=== PATIENT | female | born 1945 | race Caucasian/White ===

== ENCOUNTER 2016-10-31 15:12 | Inpatient (IN) | payer MEDICARE ==
[~2016-10-31] VITALS: Ht 152.4 cm; Wt 77.2 kg
[~2016-10-31 15:12] MED LIST: ALBU2.5V4 IH; ALBU8.5H2 INHALATION; CARV6.252 PO; CITA20TA11 PO; CYAN50008 PO; EPIN0.3P2 IM; FLUT16SP NS; L.AC1CAP6 PO; LIP40 PO; PANT40TA3 PO; SYMINH INHALATION; TIOT18CA3 IH; UBID100C25 PO
[2016-10-31 15:16] VITALS: BP 199/111; PULSE 105; RESP 16; O2SAT 98
[2016-10-31] MEDS ORDERED: Ondansetron 2 mg/mL 2 mL Inj ONE (15:39)
--- NOTE | 2016-10-31 15:45 | ED.REPORT ---
HPI-Abd Pain F 40 and Over Date of Service October 31, 2016 ED Provider: Rubio Brown MD The patient is a 71 year old female with history of hypertension, hyperlipidemia , COPD, asthma, mitral valve regurgitation, aortic stenosis, GERD, diverticulitis, and recurrent nausea and vomiting of unclear etiology, who presents to the emergency department complaining of nausea and vomiting that began suddenly at 1100 today. She has also experienced abdominal pain, diarrhea , and cold sweats. The nausea is more significant than the abdominal pain. She has had similar symptoms in the past. She has been hospitalized a few times with extensive workups that have not shown any conclusive findings. Most mornings she wakes up and experiences abdominal pain, diarrhea, and cold sweats. The patient believes her symptoms may be related to a wheat intolerance. She has not had any wheat for the last 4 days but has continued to have episodes. Nursing Notes Stated Complaint: DIARRHEA Chief Complaint: Female Abdominal Pain Nursing Notes Reviewed: Yes Allergies: Coded Allergies: Penicillins (Verified Allergy, Severe, Anaphylaxis- OK WITH CEPHALOSPORINS , 10/31/16) codeine (Verified Adverse Reaction, Severe, Nausea,Vomiting, 10/31/16) promethazine (Verified Adverse Reaction, Unknown, Hallucinations, 10/31/16) Scheduled Atorvastatin (Lipitor) 40 Mg Tablet 40 MG PO DAILY Budesonide/Formoterol 160-4.5 mcg Inh (Symbicort 160-4.5 mcg Inh) 120 Puff Inhaler 2 PUFF INHALATION BID Carvedilol (Carvedilol) 6.25 Mg Tablet 0.5 TAB PO BID Citalopram (Citalopram) 20 Mg Tablet 20 MG PO DAILY Cyanocobalamin (Vitamin B-12) (Vitamin B12) 5,000 Mcg Tab.rapdis 5,000 MCG PO DAILY Fluticasone Propionate (Fluticasone Propionate Nasal) 16 Gm [place].susp 2 SPRAY NS DAILY L.acidoph & Paracasei,B.lactis (Probiotic) 10 Billion Cell Capsule 1 EACH PO DAILY Pantoprazole DR (Pantoprazole DR) 40 Mg Tablet.dr 40 MG PO DAILY Tiotropium [place] (Spiriva) 18 Mcg Cap.w.dev 18 MCG IH DAILY Ubidecarenone (Co Q-10) 100 Mg Capsule 100 MG PO DAILY Scheduled PRN Albuterol HFA (Proair HFA) 8.5 Gm Hfa.aer.ad 2 PUFFS INHALATION Q4-6H PRN PRN For Shortness of Breath Albuterol Neb Soln (Albuterol Neb Soln) 2.5 Mg/3 Ml Vial.neb 2.5 MG IH Q4 PRN PRN For Shortness of Breath Epinephrine (Epipen 2-Mu) 0.3 Mg/0.3 Ml Auto.injct 0.3 MG IM PRN For Anaphyllaxis General Time Seen by MD: 15:43 Chief Complaint Nausea, Vomiting moderate Hx Obtained From: Patient, Spouse Arrived By: Walk-in Sudden in Onset?: Yes Onset Occurred: 5 - 8 hours ago Symptom Duration: Since onset Progression since Onset: Constant, Gradually worsening Location: : Diffuse Quality: Painful Severity: Current: Moderate Severity: Maximum: Pain scale Associated with: Reports: Diarrhea Additional Notes: +abdominal pain, diaphoresis Pertinent Negative: Pt denies other symptoms Recent Healthcare: No recent doctor visit, No recent hospitalization Similar Sx Previous: Yes Past Medical History Past Medical History Nausea and vomiting unclear etiology Hypertension Hyperlipidemia Depression COPD Divertiuclitis GERD Asthma Mitral valve regurgitation Moderate-severe aortic stenosis Past Surgical History Bladder surgery Eye surgery R rotator cuff surgery October 2016 Denies ABD surgeries Family History Noncontributory Smoking History Former Smoker Social History Alcohol Use: 1-3 per week Drug Use: Denies drug use Other Social History: Good social support, , Local resident Ambulatory Status Independent Review of Systems Constitutional: Reports: Chills GI: Reports: Abdominal pain, Diarrhea, Nausea, Vomiting, Denies: Constipation Complete sys rev & neg: except as marked. Skin: Reports Diaphoresis Physical Exam Vital Signs Vital Signs (First) Date Time Temp Pulse Resp B/P Pulse Ox O2 Delivery O2 Flow Rate FiO2 10/31/16 15:16 37.1 105 16 199/111 98 Room Air Initial VS: Reviewed Head / Eyes: Atraumatic, Normocephalic, PERRL ENT: Mucous membranes moist, Conjunctiva normal, No scleral icterus Neck: Supple, Non-tender, Full range of motion Lymphatic: No lymphadenopathy Extremities: Vascular intact, Neuro intact, No swelling Skin: Warm, Dry, No cyanosis Neurologic: Alert, Oriented, Nonfocal Psychiatric: Mood/affect normal, Behavior normal, Normal thought content General/Constitutional: Awake, Alert, Cooperative Distress / Hydration: Positive: Distress moderate Appearance / Presentation: Positive: Uncomfortable Respiratory / Chest: Atraumatic, Breath sounds NL, Breath sounds = bilat, No respiratory distress, No rales, No rhonchi, No wheezing, No stridor Cardiovascular: Regular rhythm, Heart sounds NL, No murmurs, No rubs, Peripheral circulation NL, Pulses = bilaterally Heart Rate / Rhythm: Positive: Tachycardia Abdomen: Atraumatic, Soft, Non-tender, No guarding, No rebound, BS normoactive , No distention, No hernia, No palpable mass, No pulsatile mass Back: Atraumatic, Inspection NL, Full range of motion Upper Extremity / MS: Neurologic intact, Vascular intact Right arm in sling s/p recent rotator cuff surgery. Interpretation & Diagnostics Interpretation & Diagnostics: December 2015: Serology for schistosomiasis and Strongyloides were negative Lab Results Interpretation Result Diagram: 10/31/16 1535 10/31/16 1535 Test 10/31/16 15:35 White Blood Count 12.9th/mm3 (3.8-10.1) Red Blood Count 4.33mil/mm3 (3.90-5.20) Hemoglobin 13.3g/dL (12.0-15.6) Hematocrit 38.8% (35.0-46.0) Mean Corpuscular Volume 89.6fL (81-100) Mean Corpuscular Hemoglobin 30.7pg (27.0-35.0) Mean Corpuscular Hemoglobin Concent 34.3% (32.0-37.0) Red Cell Distribution Width 12.6% (12.3-15.4) Platelet Count 327bil/L (150-400) Neutrophils (%) (Auto) 71.9% (40-74) Lymphocytes (%) (Auto) 19.3% (14-46) Monocytes (%) (Auto) 6.3% (4-12) Eosinophils (%) (Auto) 2.1% (0-5) Basophils (%) (Auto) 0.2% (0-3) Hold Purple Top Tube Received (Received) Hold Blue Top Tube Received (Received) Sodium Level 135mEq/L (134-144) Potassium Level 3.1mEq/L (3.5-5.2) Chloride Level 95mEq/L (97-108) Carbon Dioxide Level 21mmol/L (18-29) Blood Urea Nitrogen 17mg/dL (8-27) Creatinine 0.81mg/dL (0.57-1.00) Estimat Glomerular Filtration Rate 100mL/min (>59) Glucose Level 138mg/dL (60-99) Lactic Acid Level 2.4mmol/L (0.4-2.0) Calcium Level 10.2mg/dL (8.5-10.1) Magnesium Level 1.6mg/dL (1.6-2.6) Total Bilirubin 0.4mg/dL (0.0-1.2) Aspartate Amino Transf (AST/SGOT) 20U/L (0-50) Alanine Aminotransferase (ALT/SGPT) 15U/L (0-32) Alkaline Phosphatase 104U/L (25-165) Total Protein 7.3g/dL (6.4-8.4) Albumin 4.0g/dL (3.4-5.0) Lipase 33U/L (13-60) Hold [place]prise Top Tube Received (Received) Hold Ching Top Tube Received (Received) Re-Eval/Medical Decision Source of Hx: Old records, Family Re-Evaluation/Progress : Time of Eval: 16:15 Re-Evaluation/Progress Note: Discussed plan for admission. All questions were addressed. Consultation : Referral / Consult Name: Hill Henry DO Consulted With: Hospitalist Call Returned at: 17:18 Field Operations Manager: Will see patient, Agrees with eval, Agrees with plan, Accepts admit Counseled Regarding: Diagnosis, Lab results, Need for admission Discharge & Departure Primary Impression: Intractable vomiting Vomiting type: unspecified Nausea presence: with nausea Qualified Code: R11.2 - Nausea with vomiting, unspecified Additional Impression: Nausea Disposition: ADMITTED TO HOSPITAL Discharge Condition All VS Reviewed: Yes Condition: Stable Referrals: Cristy Mcclellan (PCP) Scribe Attestation Portions of this note were transcribed by Veronica Muniz. I, Dr. Brown personally performed the history, physical exam and medical decision-making; I reviewed and confirmed the accuracy of the information in the transcribed note. Signed by: Mitzi Ortega, 10/31/2016 at 9591. copies to: Cristy Mcclellan Kirk H MD October 31, 2016 15:45 Veronica Muniz October 31, 2016 15:52
[2016-10-31] MEDS ORDERED: MetoCLOpramide 5 mg/mL 2 mL Inj IVPUSH ONE (16:10)
[2016-10-31] MEDS ORDERED: Ondansetron 2 mg/mL 2 mL Inj IVPUSH PRN (16:10)
[2016-10-31] MEDS ORDERED: 0.9% Sodium Chloride 1,000 ML IV ONE ×2 (16:10→17:05)
[2016-10-31] MEDS ORDERED: Pantoprazole 4 mg/mL 10 mL Inj IVPUSH ONE (16:10)
[2016-10-31 16:27] LABS: BASOPHILS % (AUTO) 0.2 % (0-3); EOSINOPHILS % (AUTO) 2.1 % (0-5); MONOCYTES % (AUTO) 6.3 % (4-12); Mean Corpuscular Hemoglobin 30.7 pg (27.0-35.0); Mean Corpuscular Volume 89.6 fL (81-100); NEUTROPHILS % (AUTO) 71.9 % (40-74); Platelet Count 327 bil/L (150-400)
[2016-10-31 16:33] LABS: Magnesium 1.6 mg/dL (1.6-2.6)
[2016-10-31 16:47] VITALS: BP 199/95; PULSE 100; RESP 19; O2SAT 99
[2016-10-31 17:04] VITALS: BP 199/95; PULSE 100; RESP 18; O2SAT 100
[2016-10-31] MEDS: Lactated Ringer's 1,000 ML IV SCH (17:08)
[2016-10-31] MEDS ORDERED: Albuterol 2.5 mg/3 mL Inhalation Solution NEB PRN (17:15)
[2016-10-31] MEDS ORDERED: levoFLOXacin Inj 750 MG in IV Premix 1 EACH IV ONE (17:30)
[2016-10-31 17:56] VITALS: BP 174/103; PULSE 102; RESP 20; O2SAT 98
[2016-10-31] MEDS ORDERED: metroNIDAZOLE Inj 500 MG in IV Premix 1 EACH IV SCH (18:00)
[2016-10-31 18:08] LABS: APPEARANCE,URINE CLEAR (CLEAR,HAZY); COLOR,URINE YELLOW (YELLOW); OCCULT BLOOD,URINE NEGATIVE (NEGATIVE); PH,URINE 7.5 (5.0-8.0); UROBILINOGEN,URINE NORMAL (NORMAL)
[2016-10-31 18:10] VITALS: PULSE 108
[2016-10-31] MEDS ORDERED: Potassium Chloride Inj 30 MEQ in Dextrose 5% 500 ML IV ONE (18:40)
[2016-10-31] MEDS ORDERED: Magnesium Sulf 2 Gm/50mL Water 2 GM in IV Premix 1 EACH IV ONE ×2 (18:40→21:25)
--- NOTE | 2016-10-31 19:06 | PCM.HPMED ---
Subjective Date of Service October 31, 2016 Primary Provider: Admitting Physician: Murali Grubbs MD Primary Care Physician: Cristy Mcclellan Attending Physician: Murali Grubbs MD Chief Complaint: intractable nausea, vomiting, diarrhea History of Present Illness: 71 year old female with history of hypertension, hyperlipidemia, COPD, asthma, mitral valve regurgitation, aortic stenosis, GERD, diverticulitis, and recurrent nausea and vomiting of unclear etiology, pt presented to ED with acute on chronic intractable nausea/vomiting, abdominal pain, new onset diarrhea. Of note, pt was not able to give detailed history as pt was severely retching in ED. As per , ED provider, pt has intermittent nausea for past few weeks, thought to be from Wheat intolerance, so tried to cut back all of Wheat products but not successful, otherwise pt has been eating as normal, relatively good appetite, until today around noon, pt started having severe nausea, multiple vomiting, watery diarrhea, chills, sweating, diffuse pain on lower belly. Before this episode, pt had regular BM. Of note, pt had very simliar episode of n,v,diarrhea, it seems it's been on and off for four years. Last hospitalization in , pt was admitted with similar complaints, CT showed mild colitis, eventually had colonoscopy which showed mild erosion in colon, twisty sigmoid colon, which prone to cause ileus per . Biopsy of erosion was later found to be no dysplasia, not infectious in pathology. patient's symptoms were greatly improved with supportive tx with IVF, anti-emetics, stools PCR showed EPEC, but no abx was given. There was mild concern from ID regarding long standing parasites infection or ischemic colitis but excluded with negative serology and endoscopy. As per, , patient hasn't followed up GI, since that time. EGD/colonoscopy prior to 2015 was on 02/23/15 with the following findings: Gastropathy. Sliding hiatal hernia. Nonobstructing Schatzki's. Diverticulosis. Otherwise visually unremarkable colonoscopy to cecum. ED VS 199/111, 105, 16, 98% on RA, afebrile, labs showed mild leukocytosis, mild lactate, low K, Mg. PCT0.05. pt received pepcid, reglan, benadryl, zofran, however still symptomatic. ROS: detailed ROS were not available as pt was retching, no dysuria, no chest pain, SOB, feeling cold didn't take temp at home Review of Systems: All of pertinent history was obtained in details as above in HPI Allergies Coded Allergies: Penicillins (Verified Allergy, Severe, Anaphylaxis- OK WITH CEPHALOSPORINS , 10/31/16) codeine (Verified Adverse Reaction, Severe, Nausea,Vomiting, 10/31/16) promethazine (Verified Adverse Reaction, Unknown, Hallucinations, 10/31/16) Home Medications Scheduled Atorvastatin (Lipitor) 40 Mg Tablet 40 MG PO DAILY Budesonide/Formoterol 160-4.5 mcg Inh (Symbicort 160-4.5 mcg Inh) 120 Puff Inhaler 2 PUFF INHALATION BID Carvedilol (Carvedilol) 6.25 Mg Tablet 0.5 TAB PO BID Citalopram (Citalopram) 20 Mg Tablet 20 MG PO DAILY Cyanocobalamin (Vitamin B-12) (Vitamin B12) 5,000 Mcg Tab.rapdis 5,000 MCG PO DAILY Fluticasone Propionate (Fluticasone Propionate Nasal) 16 Gm [place].susp 2 SPRAY NS DAILY L.acidoph & Paracasei,B.lactis (Probiotic) 10 Billion Cell Capsule 1 EACH PO DAILY Pantoprazole DR (Pantoprazole DR) 40 Mg Tablet.dr 40 MG PO DAILY Tiotropium [place] (Spiriva) 18 Mcg Cap.w.dev 18 MCG IH DAILY Ubidecarenone (Co Q-10) 100 Mg Capsule 100 MG PO DAILY Scheduled PRN Albuterol HFA (Proair HFA) 8.5 Gm Hfa.aer.ad 2 PUFFS INHALATION Q4-6H PRN PRN For Shortness of Breath Albuterol Neb Soln (Albuterol Neb Soln) 2.5 Mg/3 Ml Vial.neb 2.5 MG IH Q4 PRN PRN For Shortness of Breath Epinephrine (Epipen 2-Mu) 0.3 Mg/0.3 Ml Auto.injct 0.3 MG IM PRN For Anaphyllaxis PMH Past Medical History 11/17/2014 EF of 70%, LVH, moderately severe mitral regurg and moderately severe aortic stenosis A aortic valve area 1 cm Hypertension Hyperlipidemia Depression COPD diverticulosis Asthma Surgical History bladder surgery eye surgery denies ABD surgeries Family History no hx of IBD Social History Hx Alcohol Use: Yes (occassionally ) Hx Substance Use: No Hx Tobacco Use: No (quit 40 years ago) Smoking Status: Former Smoker Exam Vital Signs Vital Sign - Last Date Time Temp Pulse Resp B/P Pulse Ox O2 Delivery O2 Flow Rate FiO2 10/31/16 17:04 36.7 100 18 199/95 100 Room Air Exam markedly distressed due to nausea, abdominal pain, MMM, no JVD, tachy, regular, nl S1 S2 no mrg CTAB no w,c S,ND,diffuse tenderness on LQ, hypoactive BS+ warm, no edema Lab and Diagnostics Result Diagram: 10/31/16 15310/31/16 1535 Assessment & Plan 71 year old female with history of hypertension, hyperlipidemia, COPD, asthma, mitral valve regurgitation, aortic stenosis, GERD, diverticulitis, and recurrent nausea and vomiting of unclear etiology, acute, active Intractable nausea/vomiting/diarrhea, hx of gastritis and colitis in the past, multiple EGD/colonoscopy failed to reveal any etiologies, It seems this is similar recurrent episode of previous manifestation, labs unremarkable for infectious etiology. abd exam was benign. -NPO -stool PCR -continue conservative tx for n/v, pantoprazole 40mg iv bid, reglan 5mg q8h prn , benadryl prn, -LR 100/cchr, replete K>4, Mg>2 -will give one dose of Levaquin, flagyl, very low threshold to discontinue -if symptoms persistent, consider GI consult -KUB to rule out SBO, severe ileus, if abnormal then will get abd CT -if bloody stools noted, will aggressively treat for possible ischemic colitis chronic, stable HTN, uncontrolled likely due to stress reaction, continue coreg home dose, COPD, not active on exam, -continue spiriva, symbicort and albuterol prn hyperlipidemia -continue zocor while monitoring LFT depression -continue celexa at lower dose diet: NPO for now dispo: patient is expected to stay more than 2midnights given condition Full code dvt ppx: LMWH Time spent 65min Murali Grubbs MD October 31, 2016 17:23
[2016-10-31] MEDS: Ondansetron 2 mg/mL 2 mL Inj IVPUSH PRN ×2 (19:13→23:04)
--- NOTE | 2016-10-31 19:28 | NUR ---
Arrival to 1022 Pt arrival to 1022 nauseous and weak, wearing sling on R should for rotator cuff surgery 2 weeks prior. BP's elevated at 192/126 with a follow up BP of 174/103. Dr. Grubbs notified wanting pt medicated for nausea before additional interventions were ordered. 8mg Zofran given at this time and care transferred to NOC RN. Pt placed on tele and confirmed that blood cultures have been drawn. Levofloxacin hung. Pt on contact/enteric precautions and awaiting a stool sample. Careful monitoring will continue.
[2016-10-31] MEDS: MetoCLOpramide 5 mg/mL 2 mL Inj IVPUSH PRN (20:23)
[2016-10-31] MEDS: Fluticasone-Salmeterol 500-50 Inhaler INHALATION SCH (20:30)
[2016-11-01] VITALS (14 sets, daily range): BP systolic 165–212; BP diastolic 100–134; PULSE 94–131; RESP 15–20; O2SAT 93–97
--- NOTE | 2016-11-01 00:14 | NUR ---
Hypertension 0000: b/p 212/134, pulse 120- up to 140's while vomiting. page to to update. Addendum: 11/01/16 at 0038 by BRENTON DALLAS RN V.O. received: Nitro paste 1 inch. paste applied at 0030. agricultural economics teacher attempting 2nd PIV to LUE. current IV frequently occluding. patient remains afebrile. Tele running SR/ST in 115's. Addendum: 11/01/16 at 0436 by BRENTON DALLAS RN 0430: call from w/ order to give Labetalol 20mg IVP x 1. 1 hour after given b/p remains 170/100, pulse 119. Info page sent to to update. continues with nausea w/ dry heaves. prn zofran and reglan given thru out the night. CTM for changes.
[2016-11-01] MEDS ORDERED: Nitroglycerin 2% 1 Gm Ointment TOPICAL ONE ×2 (00:20→22:00)
[2016-11-01] MEDS: Famotidine Inj 20 MG in IV Premix 1 EACH IV SCH ×3 (01:40→20:02)
[2016-11-01] MEDS: metroNIDAZOLE Inj 500 MG in IV Premix 1 EACH IV SCH ×3 (01:42→21:39)
[2016-11-01] MEDS ORDERED: Labetalol 5 mg/mL 4 mL Inj IVPUSH ONE ×2 (02:45→06:00)
[2016-11-01] MEDS: MetoCLOpramide 5 mg/mL 2 mL Inj IVPUSH PRN ×2 (04:39→12:18)
[2016-11-01] MEDS: Ondansetron 2 mg/mL 2 mL Inj IVPUSH PRN ×3 (05:50→16:10)
--- NOTE | 2016-11-01 05:55 | NUR ---
0600: b/p 194/125 pulse 112. 97% RA. temp 98.1. patient reports no symptoms of hypertension. "just nauseated." has been receiving prn zofran and reglan thru the night. page to . new order for Labetolol 20mg IVP x 1.
[2016-11-01 06:08] LABS: BASOPHILS % (AUTO) 0.1 % (0-3); EOSINOPHILS % (AUTO) 0 % (0-5); MONOCYTES % (AUTO) 6.1 % (4-12); Mean Corpuscular Hemoglobin 30.8 pg (27.0-35.0); Mean Corpuscular Volume 88.6 fL (81-100); NEUTROPHILS % (AUTO) 87.4 % (40-74); Platelet Count 317 bil/L (150-400)
[2016-11-01 06:22] LABS: Magnesium 2.4 mg/dL (1.6-2.6); Phosphorus 2.7 mg/dL (2.5-4.9)
[2016-11-01] MEDS: Lactated Ringer's 1,000 ML IV SCH ×2 (08:14→20:02)
[2016-11-01] MEDS: Pantoprazole 4 mg/mL 10 mL Inj IVPUSH SCH ×2 (08:14→16:10)
[2016-11-01] MEDS: Tiotropium 18mcg/Cap 5 Capsule Inhaler Kit INHALATION SCH (08:26)
[2016-11-01] MEDS: Fluticasone 0.05% 15 Spray/2 Gm 16 Gm Nasal Spray NASAL SCH (08:26)
[2016-11-01] MEDS: Fluticasone-Salmeterol 500-50 Inhaler INHALATION SCH ×2 (08:26→20:10)
[2016-11-01] MEDS ORDERED: levoFLOXacin Inj 750 MG in IV Premix 1 EACH IV SCH (08:30)
--- NOTE | 2016-11-01 11:00 | DRSVH ---
PROCEDURE: CT ABDOMEN AND PELVIS WITHOUT CONTRAST ([id number]) INDICATIONS: intractable n/v TECHNIQUE: After the administration of oral contrast, 5 mm thick sections acquired from the diaphragms to the sy mphysis. 5 mm coronal and sagittal reformats were performed. For radiation dose reduction, the foll owing was used: automated exposure control, adjustment of mA and/or kV according to patient size. COMPARISON: [facility], CT, ABD/PELVIS W/CON (PN), 12/08/2014, 15:53. FINDINGS: Image quality: Diagnostic. ABDOMEN: Lung bases: Lung bases are clear. Heart size is normal. Solid organs: The liver, spleen, pancreas, and adrenals are within normal limits for noncontrast exam . The kidneys are normal in size. No renal calculi are evident. There is prominent perinephric flu id on the left and mild perinephric fluid on the right. No hydronephrosis is present. Peritoneum and bowel: There is a small hiatal hernia. Mild prominence of the wall of the distal stoma ch is evident, which is less prominent on the current exam compared to the prior study. Otherwise, t he duodenum and remainder of the small bowel loops are nondilated. Distal colonic diverticulosis is identified with mild inflammation evident adjacent to the rectosigmoid colon with probable bowel wall thickening. No complete bowel obstruction is identified. The appendix is well-visualized and bela l in size without periappendiceal inflammation. Mild prominence of the wall of the ascending colon a nd transverse colon is noted. Nodes and vessels: No retroperitoneal or mesenteric adenopathy by size criteria. Aorta and inferior vena cava are normal in size. There is atherosclerosis of the abdominal aorta with associated ectas ia. Miscellaneous: No ventral hernias. PELVIS: Genitourinary: Bladder wall thickness is normal. The uterus is surgically absent. The ovaries are not definitely seen. Miscellaneous: No inguinal hernias or adenopathy. No free fluid or loculated fluid collection is ev ident within the pelvis. Bones: No suspicious bony lesions. T9 and T10 compression deformities are unchanged. Sclerotic deanna nges involving the bilateral femoral heads are similar to the previous exam without articular surface offset. No acute fractures are identified. IMPRESSION: 1. Distal colonic diverticulosis with mild surrounding inflammation is suspicious for early divertic ulitis and clinical correlation is recommended. 2. Thickening of the wall of the ascending and transverse colon similar to the previous exam and may be related to incomplete distention. However, an infectious or inflammatory colitis cannot be exclu ded and clinical correlation is recommended. 3. No bowel obstruction, loculated fluid collection, or free fluid. 4. Moderate perinephric edema about the kidneys (left greater than right) may be senescent. However , clinical correlation to exclude pyelonephritis is recommended. 5. 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 6. T10 and T11 compression deformities are unchanged. 7. Small hiatal hernia. Dictated by: Fabio Magdaleno M.D. on 11/01/2016 at 9:51 Approved by: Fabio Magdaleno M.D. on 11/01/2016 at 9:58
[2016-11-01] MEDS ORDERED: Labetalol 5 mg/mL 4 mL Inj IVPUSH PRN (11:10)
--- NOTE | 2016-11-01 11:23 | PCM.PNMED ---
Subjective Date of Service November 01, 2016 Subjective pt was hypertensive and tachycardic, required labetalol iv pt remained tachyto 100-110s, [id number] this AM, c/o mild nausea, not hungry, had multiple vomiting overnight, but significantly improved in AM from yesterday afebrile, labs showed elevated wbc, poly now87%, abd ct showed multiple areas of colitis Exam Vital Signs Vital Sign - Last Date Time Temp Pulse Resp B/P Pulse Ox O2 Delivery O2 Flow Rate FiO2 11/01/16 09:12 36.8 103 18 177/115 96 Room Air Intake and Output 10/31/16 10/31/16 11/01/16 Cumulative From/Thru 15:00 23:00 07:00 10/31/16 15:16 - 11/01/16 06:17 Intake Total 1000 ml 809 ml 1809 ml Output Total 975 ml 975 ml Balance 1000 ml -166 ml 834 ml Intake Oral 0 ml 0 ml 0 ml IV Total 1000 ml 809 ml 1809 ml Output Urine Total 900 ml 900 ml Emesis 75 ml 75 ml # Voids 0 0 # Bowel Movements 0 1 1 Exam markedly distressed due to nausea, abdominal pain, MMM, no JVD, tachy, regular, nl S1 S2 no mrg CTAB no w,c S,ND,diffuse tenderness on LQ, hypoactive BS+ warm, no edema IVs and Medications Medications Reviewed: Medications were reviewed in detail Lab and Diagnostics Result Diagram: 11/01/16 0540 11/01/16 0540 X-Rays, CTs and MRIs PROCEDURE: CT ABDOMEN AND PELVIS WITHOUT CONTRAST ([id number]) INDICATIONS: intractable n/v TECHNIQUE: After the administration of oral contrast, 5 mm thick sections acquired from the diaphragms to the symphysis. 5 mm coronal and sagittal reformats were performed. For radiation dose reduction, the following was used: automated exposure control, adjustment of mA and/or kV according to patient size. COMPARISON: [facility], CT, ABD/PELVIS W/CON (PN), 12/08/2014, 15: 53. FINDINGS: Image quality: Diagnostic. ABDOMEN: Lung bases: Lung bases are clear. Heart size is normal. Solid organs: The liver, spleen, pancreas, and adrenals are within normal limits for noncontrast exam. The kidneys are normal in size. No renal calculi are evident. There is prominent perinephric fluid on the left and mild perinephric fluid on the right. No hydronephrosis is present. Peritoneum and bowel: There is a small hiatal hernia. Mild prominence of the wall of the distal stomach is evident, which is less prominent on the current exam compared to the prior study. Otherwise, the duodenum and remainder of the small bowel loops are nondilated. Distal colonic diverticulosis is identified with mild inflammation evident adjacent to the rectosigmoid colon with probable bowel wall thickening. No complete bowel obstruction is identified. The appendix is well-visualized and normal in size without periappendiceal inflammation. Mild prominence of the wall of the ascending colon and transverse colon is noted. Nodes and vessels: No retroperitoneal or mesenteric adenopathy by size criteria. Aorta and inferior vena cava are normal in size. There is atherosclerosis of the abdominal aorta with associated ectasia. Miscellaneous: No ventral hernias. PELVIS: Genitourinary: Bladder wall thickness is normal. The uterus is surgically absent. The ovaries are not definitely seen. Miscellaneous: No inguinal hernias or adenopathy. No free fluid or loculated fluid collection is evident within the pelvis. Bones: No suspicious bony lesions. T9 and T10 compression deformities are unchanged. Sclerotic changes involving the bilateral femoral heads are similar to the previous exam without articular surface offset. No acute fractures are identified. IMPRESSION: 1. Distal colonic diverticulosis with mild surrounding inflammation is suspicious for early diverticulitis and clinical correlation is recommended. 2. Thickening of the wall of the ascending and transverse colon similar to the previous exam and may be related to incomplete distention. However, an infectious or inflammatory colitis cannot be excluded and clinical correlation is recommended. 3. No bowel obstruction, loculated fluid collection, or free fluid. 4. Moderate perinephric edema about the kidneys (left greater than right) may be senescent. However, clinical correlation to exclude pyelonephritis is recommended. 5. 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 6. T10 and T11 compression deformities are unchanged. 7. Small hiatal hernia. Dictated by: Fabio Magdaleno M.D. on 11/01/2016 at 9:51 Approved by: Fabio Magdaleno M.D. on 11/01/2016 at 9:58 Assessment & Plan 71 year old female with history of hypertension, hyperlipidemia, COPD, asthma, mitral valve regurgitation, aortic stenosis, GERD, diverticulitis, and recurrent nausea and vomiting of unclear etiology, acute, active Intractable nausea/vomiting/diarrhea, POA, likely due to diverticulitis/colitis , infectious vs inflammatory, hx of gastritis and colitis in the past, multiple EGD/colonoscopy failed to reveal any etiologies,CT abd/pelvis 10/31 showed probable early distal colonic diverticulosis with mild surrounding inflammation , Thickening of the wall of the ascending and transverse colon. -advance diet as tolerated -should get stool PCR -continue conservative tx for n/v, pantoprazole 40mg iv bid, reglan 5mg q8h prn , benadryl prn, -LR 100/cchr, replete K>4, Mg>2 -s/p Levaquin, flagyl, will continue given CT findings, -if symptoms unchanged, any blood diarrhea, will consider GI consult for possible repeat C-scope ZUHAIR, POA, likely prerenal from GI fluid loss, trends cr, conitnue IVF, avoid renal toxins, will consider renal US if it worsens chronic, stable HTN, uncontrolled likely due to stress reaction and long standing based on previous TTE, LVH, severe concentric hypertrophy -increase coreg to 12.5mg bid, added labetalol 10mg q8h prn for SBP>180 -will consider add second agent, CCB or HCTZ COPD, not active on exam, -continue spiriva, symbicort and albuterol prn hyperlipidemia -continue zocor while monitoring LFT depression -continue celexa at lower dose diet: advance as tolerate dispo: likely 2-3more days Full code dvt ppx: LMWH Time spent 35min Murali Grubbs MD November 01, 2016 11:23
--- NOTE | 2016-11-01 16:16 | NUR ---
Nausea Pt c/o nausea most of the day. Zofran given Q4 hours, Reglan given Q6 aprox 2 hours after Zofran given. This seemed to work. Pt said Reglan makes her feel antsy.
[2016-11-02] VITALS (12 sets, daily range): BP systolic 145–178; BP diastolic 88–117; PULSE 85–114; RESP 16–20; O2SAT 94–100
--- NOTE | 2016-11-02 03:32 | NUR ---
Hypertension/ MD montes de oca TOBACCO WEIGHER reported pt.'s BP was 185/117. BP re-checked with similar results 180/124, after HS blood pressure meds given. MD Rodriguez paged. Michael MCFARLAND ordered a one time order of nitro paste. Nitro paste applied. Pt's BP went down to 175/111. Will continue to monitor BPs.
[2016-11-02 06:09] LABS: BASOPHILS % (AUTO) 0.1 % (0-3); EOSINOPHILS % (AUTO) 0.1 % (0-5); MONOCYTES % (AUTO) 10.2 % (4-12); Mean Corpuscular Hemoglobin 31.5 pg (27.0-35.0); NEUTROPHILS % (AUTO) 77.7 % (40-74); Platelet Count 202 bil/L (150-400)
[2016-11-02 06:21] LABS: Magnesium 1.7 mg/dL (1.6-2.6); Phosphorus 2.9 mg/dL (2.5-4.9)
[2016-11-02] MEDS: Fluticasone-Salmeterol 500-50 Inhaler INHALATION SCH ×2 (08:07→20:52)
[2016-11-02] MEDS: Pantoprazole 40 mg ER24 Tablet PO SCH (08:07)
[2016-11-02] MEDS: Tiotropium 18mcg/Cap 5 Capsule Inhaler Kit INHALATION SCH (08:08)
[2016-11-02] MEDS: Fluticasone 0.05% 15 Spray/2 Gm 16 Gm Nasal Spray NASAL SCH (08:09)
[2016-11-02] MEDS: Lactated Ringer's 1,000 ML IV SCH (09:08)
[2016-11-02] MEDS: metroNIDAZOLE Inj 500 MG in IV Premix 1 EACH IV SCH (10:00)
[2016-11-02] MEDS ORDERED: Labetalol 5 mg/mL 4 mL Inj IVPUSH PRN (11:10)
--- NOTE | 2016-11-02 11:22 | PCM.PNMED ---
Subjective Date of Service November 02, 2016 Subjective pt looked more comfortable, denied n/v, looked more alrt no BM since admission. denied KEVIN, dizziness, BP trend is better but still 160-170s with increased Coreg c/o mild diffuse abdominal pain Exam Vital Signs Vital Sign - Last Date Time Temp Pulse Resp B/P Pulse Ox O2 Delivery O2 Flow Rate FiO2 11/02/16 09:16 36.7 97 18 167/100 96 Room Air Intake and Output 11/01/16 11/01/16 11/02/16 Cumulative From/Thru 15:00 23:00 07:00 10/31/16 15:16 - 11/02/16 06:44 Intake Total 1510 ml 1814 ml 5133 ml Output Total 775 ml 400 ml 2150 ml Balance 735 ml 1414 ml 2983 ml Intake Oral 600 ml 590 ml 1190 ml IV Total 910 ml 1224 ml 3943 ml Output Urine Total 750 ml 400 ml 2050 ml Emesis 25 ml 100 ml # Voids 0 # Bowel Movements 1 Exam markedly distressed due to nausea, abdominal pain, MMM, no JVD, tachy, regular, nl S1 S2 no mrg CTAB no w,c S,ND,diffuse tenderness throughout, hypoactive BS+ warm, no edema IVs and Medications Medications Reviewed: Medications were reviewed in detail Lab and Diagnostics Result Diagram: 11/02/1652411/02/16524 X-Rays, CTs and MRIs PROCEDURE: CT ABDOMEN AND PELVIS WITHOUT CONTRAST ([id number]) INDICATIONS: intractable n/v TECHNIQUE: After the administration of oral contrast, 5 mm thick sections acquired from the diaphragms to the symphysis. 5 mm coronal and sagittal reformats were performed. For radiation dose reduction, the following was used: automated exposure control, adjustment of mA and/or kV according to patient size. COMPARISON: [facility], CT, ABD/PELVIS W/CON (PN), 12/08/2014, 15: 53. FINDINGS: Image quality: Diagnostic. ABDOMEN: Lung bases: Lung bases are clear. Heart size is normal. Solid organs: The liver, spleen, pancreas, and adrenals are within normal limits for noncontrast exam. The kidneys are normal in size. No renal calculi are evident. There is prominent perinephric fluid on the left and mild perinephric fluid on the right. No hydronephrosis is present. Peritoneum and bowel: There is a small hiatal hernia. Mild prominence of the wall of the distal stomach is evident, which is less prominent on the current exam compared to the prior study. Otherwise, the duodenum and remainder of the small bowel loops are nondilated. Distal colonic diverticulosis is identified with mild inflammation evident adjacent to the rectosigmoid colon with probable bowel wall thickening. No complete bowel obstruction is identified. The appendix is well-visualized and normal in size without periappendiceal inflammation. Mild prominence of the wall of the ascending colon and transverse colon is noted. Nodes and vessels: No retroperitoneal or mesenteric adenopathy by size criteria. Aorta and inferior vena cava are normal in size. There is atherosclerosis of the abdominal aorta with associated ectasia. Miscellaneous: No ventral hernias. PELVIS: Genitourinary: Bladder wall thickness is normal. The uterus is surgically absent. The ovaries are not definitely seen. Miscellaneous: No inguinal hernias or adenopathy. No free fluid or loculated fluid collection is evident within the pelvis. Bones: No suspicious bony lesions. T9 and T10 compression deformities are unchanged. Sclerotic changes involving the bilateral femoral heads are similar to the previous exam without articular surface offset. No acute fractures are identified. IMPRESSION: 1. Distal colonic diverticulosis with mild surrounding inflammation is suspicious for early diverticulitis and clinical correlation is recommended. 2. Thickening of the wall of the ascending and transverse colon similar to the previous exam and may be related to incomplete distention. However, an infectious or inflammatory colitis cannot be excluded and clinical correlation is recommended. 3. No bowel obstruction, loculated fluid collection, or free fluid. 4. Moderate perinephric edema about the kidneys (left greater than right) may be senescent. However, clinical correlation to exclude pyelonephritis is recommended. 5. 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 6. T10 and T11 compression deformities are unchanged. 7. Small hiatal hernia. Dictated by: Fabio Magdaleno M.D. on 11/01/2016 at 9:51 Approved by: Fabio Magdaleno M.D. on 11/01/2016 at 9:58 Assessment & Plan 71 year old female with history of hypertension, hyperlipidemia, COPD, asthma, mitral valve regurgitation, aortic stenosis, GERD, diverticulitis, and recurrent nausea and vomiting of unclear etiology, acute, active Intractable nausea/vomiting/diarrhea, POA, likely due to diverticulitis/colitis , infectious vs inflammatory, hx of gastritis and colitis in the past, multiple EGD/colonoscopy failed to reveal any etiologies,CT abd/pelvis 10/31 showed probable early distal colonic diverticulosis with mild surrounding inflammation , Thickening of the wall of the ascending and transverse colon. -pt is clinically improving with current tx -advance diet as tolerated -should get stool PCR if diarrhea occurs -continue conservative tx for n/v, pantoprazole, reglan, benadryl prn, switched to PO today -continue LR 100/cchr, replete K>4, Mg>2 -s/p Levaquin, flagyl, will continue current regimen given CT findings, -if symptoms unchanged, any blood diarrhea, will consider GI consult for possible repeat C-scope ZUHAIR, POA, likely prerenal from GI fluid loss, improving with IVF -trends cr, conitnue IVF, avoid renal toxins, will consider renal US if it worsens chronic, stable HTN, uncontrolled likely due to stress reaction and long standing based on previous TTE, LVH, severe concentric hypertrophy -BP better controlled but remains >160s, not in target -increase coreg to 12.5mg bid, added labetalol 10mg q8h prn for SBP>180 -added amlodipine 5mg today COPD, not active on exam, -continue spiriva, symbicort and albuterol prn hyperlipidemia -continue zocor while monitoring LFT depression -continue celexa at lower dose diet: advance as tolerate dispo: likely 2-3more days Full code dvt ppx: LMWH Time spent 35min Murali Grubbs MD November 02, 2016 11:22
--- NOTE | 2016-11-02 11:41 | NUR ---
FRANCISCO signed. Dee Forte FEEDLOT MANAGER
--- NOTE | 2016-11-02 12:00 | NUR ---
Social Work- Initial Assessment Data: See Initial Assessment. Pt is a 71 year old female admitted 10/31/16 for intractable nausea, vomiting per H&P. Pt's insurance is [employer]. Pt's PCP is GONZALEZ Lauren. CHIROPRACTIC TEACHER met with pt at bedside regarding discharge plan, SW role explained. Pt alert and oriented x3. Pt resides in [place] in a split level home with her where she is independent at baseline. Pt uses no DME and continues to drive. Pt has no HH or SNF history. Pt has no LTC or VA benefits. Pt has no DPOA, CHIROPRACTIC TEACHER provided paperwork to pt at bedside. Pt to discharge home with to transport via POV, no anticipated discharge needs identified. SW will continue to follow for discharge needs. Assessment: Pt who is independent at baseline. Plan: Pt who is independent at baseline. Pt to discharge home with to transport via POV. No anticipated discharge needs identified. SW will continue to follow for discharge needs. SOLOMON Christianson Addendum: 11/02/16 at 1207 by VARGAS MCLEAN Amended: Links added.
--- NOTE | 2016-11-02 17:55 | NUR ---
GI Patient states GI symptoms decreased since admission. Patient denies any nausea or pain to the abdomen this shift, has positive bowel tones, is passing gas, has urge for bowel movement but has not passed one at this time. Care is ongoing.
[2016-11-02] MEDS ORDERED: levoFLOXacin Inj 750 MG in IV Premix 1 EACH IV SCH (20:30)
[2016-11-03] VITALS (9 sets, daily range): BP systolic 99–123; BP diastolic 61–89; PULSE 87–115; RESP 16–20; O2SAT 92–97
[2016-11-03] MEDS: metroNIDAZOLE Inj 500 MG in IV Premix 1 EACH IV SCH ×3 (00:34→22:14)
--- NOTE | 2016-11-03 04:50 | NUR ---
Pain Pt. has rated pain 4/10. Roxycodone 10mg PO and Morphine IVP 2mg given. Pt. went to sleep afterwards. Will continue to monitor.
[2016-11-03 06:16] LABS: BASOPHILS % (AUTO) 0.1 % (0-3); EOSINOPHILS % (AUTO) 0.6 % (0-5); MONOCYTES % (AUTO) 12.8 % (4-12); Mean Corpuscular Hemoglobin 30.9 pg (27.0-35.0); Mean Corpuscular Volume 87.7 fL (81-100); NEUTROPHILS % (AUTO) 63.1 % (40-74); Platelet Count 155 bil/L (150-400)
[2016-11-03 06:34] LABS: Magnesium 1.6 mg/dL (1.6-2.6); Phosphorus 2.3 mg/dL (2.5-4.9)
[2016-11-03] MEDS: Pantoprazole 40 mg ER24 Tablet PO SCH (07:59)
[2016-11-03] MEDS: Fluticasone-Salmeterol 500-50 Inhaler INHALATION SCH ×2 (08:01→22:13)
[2016-11-03] MEDS: Tiotropium 18mcg/Cap 5 Capsule Inhaler Kit INHALATION SCH (08:01)
[2016-11-03] MEDS: Fluticasone 0.05% 15 Spray/2 Gm 16 Gm Nasal Spray NASAL SCH (08:01)
[2016-11-03] MEDS ORDERED: ONDA4TAB9 PO (10:23)
[2016-11-03] MEDS ORDERED: METO10TA3 PO (10:23)
[2016-11-03] MEDS ORDERED: CARV6.252 PO (10:24)
[2016-11-03] MEDS ORDERED: AMLO5TAB2 PO (10:24)
[2016-11-03] MEDS ORDERED: 0.9% Sodium Chloride 1,000 ML IV ONE (11:55)
[2016-11-03] MEDS ORDERED: Potassium Chloride 20 mEq SR Tablet PO ONE (11:55)
--- NOTE | 2016-11-03 14:37 | PCM.PNMED ---
Subjective Date of Service November 03, 2016 Subjective symptoms greatly improved, however noted hyponatremia, hypochloroemia, worsening, remained mildly tachycardic 100s, EKG showed [id number], sinus tach pt denied n/v/abdominal pain, tolerating diet, advanced today Exam Vital Signs Vital Sign - Last Date Time Temp Pulse Resp B/P Pulse Ox O2 Delivery O2 Flow Rate FiO2 11/03/16 13:06 37.1 90 16 123/77 97 Room Air Intake and Output 11/02/16 11/02/16 11/03/16 Cumulative From/Thru 15:00 23:00 07:00 10/31/16 15:16 - 11/03/16 05:56 Intake Total 400 ml 118 ml 5651 ml Output Total 550 ml 700 ml 3400 ml Balance -150 ml -582 ml 2251 ml Intake Oral 400 ml 118 ml 1708 ml IV Total 3943 ml Output Urine Total 550 ml 700 ml 3300 ml Emesis 100 ml # Voids 3 3 # Bowel Movements 0 1 Exam NAD, comfortable on the bed MMM, no JVD, tachy, regular, nl S1 S2 no mrg CTAB no w,c S,ND,NT, normoactive BS+ warm, no edema IVs and Medications Medications Reviewed: Medications were reviewed in detail Lab and Diagnostics Result Diagram: 11/03/16 0600 11/03/16 1000 X-Rays, CTs and MRIs PROCEDURE: CT ABDOMEN AND PELVIS WITHOUT CONTRAST ([id number]) INDICATIONS: intractable n/v TECHNIQUE: After the administration of oral contrast, 5 mm thick sections acquired from the diaphragms to the symphysis. 5 mm coronal and sagittal reformats were performed. For radiation dose reduction, the following was used: automated exposure control, adjustment of mA and/or kV according to patient size. COMPARISON: [facility], CT, ABD/PELVIS W/CON (PN), 12/08/2014, 15: 53. FINDINGS: Image quality: Diagnostic. ABDOMEN: Lung bases: Lung bases are clear. Heart size is normal. Solid organs: The liver, spleen, pancreas, and adrenals are within normal limits for noncontrast exam. The kidneys are normal in size. No renal calculi are evident. There is prominent perinephric fluid on the left and mild perinephric fluid on the right. No hydronephrosis is present. Peritoneum and bowel: There is a small hiatal hernia. Mild prominence of the wall of the distal stomach is evident, which is less prominent on the current exam compared to the prior study. Otherwise, the duodenum and remainder of the small bowel loops are nondilated. Distal colonic diverticulosis is identified with mild inflammation evident adjacent to the rectosigmoid colon with probable bowel wall thickening. No complete bowel obstruction is identified. The appendix is well-visualized and normal in size without periappendiceal inflammation. Mild prominence of the wall of the ascending colon and transverse colon is noted. Nodes and vessels: No retroperitoneal or mesenteric adenopathy by size criteria. Aorta and inferior vena cava are normal in size. There is atherosclerosis of the abdominal aorta with associated ectasia. Miscellaneous: No ventral hernias. PELVIS: Genitourinary: Bladder wall thickness is normal. The uterus is surgically absent. The ovaries are not definitely seen. Miscellaneous: No inguinal hernias or adenopathy. No free fluid or loculated fluid collection is evident within the pelvis. Bones: No suspicious bony lesions. T9 and T10 compression deformities are unchanged. Sclerotic changes involving the bilateral femoral heads are similar to the previous exam without articular surface offset. No acute fractures are identified. IMPRESSION: 1. Distal colonic diverticulosis with mild surrounding inflammation is suspicious for early diverticulitis and clinical correlation is recommended. 2. Thickening of the wall of the ascending and transverse colon similar to the previous exam and may be related to incomplete distention. However, an infectious or inflammatory colitis cannot be excluded and clinical correlation is recommended. 3. No bowel obstruction, loculated fluid collection, or free fluid. 4. Moderate perinephric edema about the kidneys (left greater than right) may be senescent. However, clinical correlation to exclude pyelonephritis is recommended. 5. 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 6. T10 and T11 compression deformities are unchanged. 7. Small hiatal hernia. Dictated by: Fabio Magdaleno M.D. on 11/01/2016 at 9:51 Approved by: Fabio Magdaleno M.D. on 11/01/2016 at 9:58 Assessment & Plan 71 year old female with history of hypertension, hyperlipidemia, COPD, asthma, mitral valve regurgitation, aortic stenosis, GERD, diverticulitis, and recurrent nausea and vomiting of unclear etiology, acute, active Intractable nausea/vomiting/diarrhea, POA, likely due to diverticulitis/colitis , infectious vs inflammatory, hx of gastritis and colitis in the past, multiple EGD/colonoscopy failed to reveal any etiologies,CT abd/pelvis 10/31 showed probable early distal colonic diverticulosis with mild surrounding inflammation , Thickening of the wall of the ascending and transverse colon. -pt is clinically improving with current tx -advance diet as tolerated -should get stool PCR if diarrhea occurs -continue conservative tx for n/v, pantoprazole, reglan, benadryl prn, switched to PO today -stopped LR switched to NS as below replete K>4, Mg>2 -s/p Levaquin, flagyl, will continue current regimen given CT findings, -if symptoms unchanged, any blood diarrhea, will consider GI consult for possible repeat C-scope ZUHAIR, POA, likely prerenal from GI fluid loss, plateaued still not at baseline. -trends cr, conitnue IVF, avoid renal toxins, will consider renal US if it worsens Hyponatremia/hyochloremia POA, likely due to GI fluid loss, asymptomatic, s/p 1liter NS bolus, -will start 100cc/hr NS -chem bid to make sure appropriate increased <8meq/24hr chronic, stable HTN, uncontrolled likely due to stress reaction and long standing based on previous TTE, LVH, severe concentric hypertrophy -BP better controlled today. -increase coreg to 12.5mg bid, added labetalol 10mg q8h prn for SBP>180 -added amlodipine 5mg 11/02 COPD, not active on exam, -continue spiriva, symbicort and albuterol prn hyperlipidemia -continue zocor while monitoring LFT depression -continue celexa at lower dose diet: advance as tolerate dispo: likely 1-2days Full code dvt ppx: LMWH VTE Mechanical Devices: Intermittant Pneumatic CD Time spent 35min Murali Grubbs MD November 03, 2016 14:37
[2016-11-03] MEDS: 0.9% Sodium Chloride 1,000 ML IV SCH ×2 (14:42→23:46)
--- NOTE | 2016-11-03 15:03 | NUR ---
NUTRITION ASSESSMENT: ASSESS:71 YO female admitted with intractable nausea / vomiting, likely due to diverticulitis/colitis, infectious vs inflammatory, hx of gastritis and colitis in the past, multiple EGD/colonoscopy failed to reveal any etiologies, CT abd/pelvis 10/31 showed probable early distal colonic diverticulosis with mild surrounding inflammation, thickening of the wall of the ascending and transverse colon. Pataient is clinically improving with current conservative management. Diet advancing as tolerated to soft; however, PO intake remains poor, bites - 10% only. PMHx:HTN, dyslipidemia, depression, COPD, diverticulosis, asthma, severe mitral regurg., moderate . DIET:Soft x 1 D. PO intake bites - 10% trays. LABS: Reviewed. Na 127, K+ 3.4, Chloride 89, Cr 1.2, Alb 125, A1c 6.3. MEDICATIONS: Reviewed. NUTRITION FOCUSED PHYSICAL ASSESSMENT: GI symptoms / stool: Fas, no stool.Kilo: 20 Skin Integrity: No issues reported. ANTHROPOMETRICS: Current Wt: 75.9 kgBMI: 32.0 kg/m2. Admit weight: 77.27 IBW: 45.5 kg (170.0% IBW) ESTIMATED NEEDS (CLASS I OBESITY): Calories: 1136 - 1364 kcal (25 - 30 kcal / kg IBW) Protein: 82 - 91 g protein (1.8 - 2.0 g / kg IBW) Fluid: Approx. 1930 mL (25 mL / kg BW) NUTRITION DIAGNOSIS: 1)Inadequate oral intake related to altered GI function, as evidenced by minimal PO intake since admit x 3 D. INTERVENTION: 1) Will add supplements to trays. MONITOR/EVALUATE: Diet advance / tolerance, PO intake, labs, GI/nutrition status. Follow up per moderate nutrition risk guidelines.
--- NOTE | 2016-11-03 17:59 | NUR ---
Electrolytes/BM Pts. labs have been showing low sodium, low potassium and an increase in creatinine. MD was made aware and ordered 1L bolus of 0.9% NS followed by 0.9% NS running at 100mls/hr. 40MEQ of potassium also given PO. Pt. has a small BM this afternoon and stool sample was sent to lab. Pt. is eager to go home but understands why she needs to stay another night. Will continue to monitor.
[2016-11-04 01:32] VITALS: BP 124/76; PULSE 98; RESP 16; O2SAT 98
--- NOTE | 2016-11-04 04:09 | NUR ---
Activity/Telemetry/BM Pt independent in room this shift with a steady gait and continues to wear a sling to RT arm due to rotator cuff surgery 2 weeks ago. Denies pain, chest pain/pressure and shortness of breath. Pt continues with NS@100ml/hr and no s/sx of fluid load. BG levels stable-see EMAR. Tele: SR HR 86 per drinking water technician. Verified with lab and they did receive the stool sample. Care ongoing.
[2016-11-04 05:28] VITALS: PULSE 88
[2016-11-04 06:00] LABS: Magnesium 1.6 mg/dL (1.6-2.6); Phosphorus 2.8 mg/dL (2.5-4.9)
[2016-11-04 06:26] VITALS: BP 116/69; PULSE 83; RESP 16; O2SAT 96
[2016-11-04 06:46] LABS: BASOPHILS % (AUTO) 0.2 % (0-3); EOSINOPHILS % (AUTO) 0.5 % (0-5); MONOCYTES % (AUTO) 12.5 % (4-12); Mean Corpuscular Hemoglobin 30.4 pg (27.0-35.0); Mean Corpuscular Volume 90.5 fL (81-100); NEUTROPHILS % (AUTO) 58.6 % (40-74); Platelet Count 88 bil/L (150-400)
[2016-11-04] MEDS: Tiotropium 18mcg/Cap 5 Capsule Inhaler Kit INHALATION SCH (07:57)
[2016-11-04] MEDS: Fluticasone-Salmeterol 500-50 Inhaler INHALATION SCH (07:57)
[2016-11-04 07:58] VITALS: PULSE 88
[2016-11-04] MEDS: Fluticasone 0.05% 15 Spray/2 Gm 16 Gm Nasal Spray NASAL SCH (07:58)
[2016-11-04] MEDS: metroNIDAZOLE Inj 500 MG in IV Premix 1 EACH IV SCH (08:12)
[2016-11-04] MEDS: Pantoprazole 40 mg ER24 Tablet PO SCH (08:13)
[2016-11-04] MEDS ORDERED: LEVO500T16 PO (09:48)
[2016-11-04] MEDS ORDERED: METR500T PO (09:48)
--- NOTE | 2016-11-04 10:37 | PCM.DIMED ---
Discharge Instructions Date of Service November 03, 2016 Dates of Hospitalization October 31, 2016 at 16:43 Discharge Diagnosis Discharge Diagnosis Intractable nausea/vomiting/diarrhea likely due to diverticulitis/colitis, Medication Instructions Take Zofran or Reglan as needed for nausea or vomiting Please continue to take Flagyl 500mg every 8hours for 9more days for your bowel infection Diet Low fat, Low Sodium, Other (please follow diet instruction for diverticulosis) Activity No restrictions Call your provider Fever or Chills, Vomitting, Excessive diarrhea Patient Instructions You were hospitalized with intractable nausea, vomiting, diarrhea, found to have bacterial infection in your colon "Clostridium difficile colitis". You were treated with antibiotics, IV fluid, medicines to alleviate your symptoms and responded well. Please note that you are encouraged to follow dietary instruction given for diverticulosis, diabetes Please follow medicine instruction as above Please return to hospital if you develop severe abdominal pain, nausea, vomiting Please follow up with GI doctor, if symptoms reoccur Follow-up plan Please follow-up with your doctor in 2 weeks Follow-up Provider: Cristy Mcclellan Follow-up with PCP in: 2 weeks Murali Grubbs MD November 03, 2016 10:28
--- NOTE | 2016-11-04 10:52 | NUR ---
Social Work Note: Discharge Data& Assessment: Per pt is medically improved and ready for discharge. Candi Chu is a 71 year old female admitted on 10/31/2016 for intractable nausea and vomiting. Per pt is medically improved and ready to discharge home via POV. Pt is ambulating independently in her room. SW met with pt at bedside to confirm discharge plan and assess for any unmet needs. Pt transporting pt home. Pt and pt deny any other needs. No other discharge needs identified. Plan: Per pt is medically ready to discharge home via POV. Pt and pt deny any other needs. No other discharge needs identified. SOLOMON Espinal
--- NOTE | 2016-11-04 10:52 | NUR ---
FRANCISCO Signed SOLOMON Espinal
--- NOTE | 2016-11-04 11:00 | NUR ---
discharged home with . Will have f/u appts with GI (Dr Molina) and her PCP . Prior to discharge, Lab called with results of Stool sample,she was positive for C Diff and enteropathogenic E Coli. Dr Grubbs notified and he made appropriate changes to discharge prescriptions. P had not had diarrhea for several days also nausea/vomiting subsided. She has been eating/drinking well, and ambulatory
--- NOTE | 2016-11-04 11:14 | PCM.DC.MED ---
Discharge Summary Date of Service November 04, 2016 Dates of Hospitalization Date of Hospital Admission October 31, 2016 at 16:43 Date of Discharge: November 04, 2016 Providers: Admitting Physician: Murali Denton MD Primary Care Physician: Cristy Mcclellan Attending Physician: Murali Denton MD Diagnosis at Time of Discharge Diagnosis at Time of Discharge Intractable nausea/vomiting/diarrhea due to C.diff colitis and EPEC colitis in the setting of diverticulosis Procedures XRay, CTs & MRIs PROCEDURE: CT ABDOMEN AND PELVIS WITHOUT CONTRAST ([id number]) INDICATIONS: intractable n/v TECHNIQUE: After the administration of oral contrast, 5 mm thick sections acquired from the diaphragms to the symphysis. 5 mm coronal and sagittal reformats were performed. For radiation dose reduction, the following was used: automated exposure control, adjustment of mA and/or kV according to patient size. COMPARISON: [facility], CT, ABD/PELVIS W/CON (PN), 12/08/2014, 15: 53. FINDINGS: Image quality: Diagnostic. ABDOMEN: Lung bases: Lung bases are clear. Heart size is normal. Solid organs: The liver, spleen, pancreas, and adrenals are within normal limits for noncontrast exam. The kidneys are normal in size. No renal calculi are evident. There is prominent perinephric fluid on the left and mild perinephric fluid on the right. No hydronephrosis is present. Peritoneum and bowel: There is a small hiatal hernia. Mild prominence of the wall of the distal stomach is evident, which is less prominent on the current exam compared to the prior study. Otherwise, the duodenum and remainder of the small bowel loops are nondilated. Distal colonic diverticulosis is identified with mild inflammation evident adjacent to the rectosigmoid colon with probable bowel wall thickening. No complete bowel obstruction is identified. The appendix is well-visualized and normal in size without periappendiceal inflammation. Mild prominence of the wall of the ascending colon and transverse colon is noted. Nodes and vessels: No retroperitoneal or mesenteric adenopathy by size criteria. Aorta and inferior vena cava are normal in size. There is atherosclerosis of the abdominal aorta with associated ectasia. Miscellaneous: No ventral hernias. PELVIS: Genitourinary: Bladder wall thickness is normal. The uterus is surgically absent. The ovaries are not definitely seen. Miscellaneous: No inguinal hernias or adenopathy. No free fluid or loculated fluid collection is evident within the pelvis. Bones: No suspicious bony lesions. T9 and T10 compression deformities are unchanged. Sclerotic changes involving the bilateral femoral heads are similar to the previous exam without articular surface offset. No acute fractures are identified. IMPRESSION: 1. Distal colonic diverticulosis with mild surrounding inflammation is suspicious for early diverticulitis and clinical correlation is recommended. 2. Thickening of the wall of the ascending and transverse colon similar to the previous exam and may be related to incomplete distention. However, an infectious or inflammatory colitis cannot be excluded and clinical correlation is recommended. 3. No bowel obstruction, loculated fluid collection, or free fluid. 4. Moderate perinephric edema about the kidneys (left greater than right) may be senescent. However, clinical correlation to exclude pyelonephritis is recommended. 5. 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 6. T10 and T11 compression deformities are unchanged. 7. Small hiatal hernia. Dictated by: Fabio Magdaleno M.D. on 11/01/2016 at 9:51 Approved by: Fabio Magdaleno M.D. on 11/01/2016 at 9:58 Brief History HPI obtained on 10/31 71 year old female with history of hypertension, hyperlipidemia, COPD, asthma, mitral valve regurgitation, aortic stenosis, GERD, diverticulitis, and recurrent nausea and vomiting of unclear etiology, pt presented to ED with acute on chronic intractable nausea/vomiting, abdominal pain, new onset diarrhea. Of note, pt was not able to give detailed history as pt was severely retching in ED. As per , ED provider, pt has intermittent nausea for past few weeks, thought to be from Wheat intolerance, so tried to cut back all of Wheat products but not successful, otherwise pt has been eating as normal, relatively good appetite, until today around noon, pt started having severe nausea, multiple vomiting, watery diarrhea, chills, sweating, diffuse pain on lower belly. Before this episode, pt had regular BM. Of note, pt had very simliar episode of n,v,diarrhea, it seems it's been on and off for four years. Last hospitalization in , pt was admitted with similar complaints, CT showed mild colitis, eventually had colonoscopy which showed mild erosion in colon, twisty sigmoid colon, which prone to cause ileus per . Biopsy of erosion was later found to be no dysplasia, not infectious in pathology. patient's symptoms were greatly improved with supportive tx with IVF, anti-emetics, stools PCR showed EPEC, but no abx was given. There was mild concern from ID regarding long standing parasites infection or ischemic colitis but excluded with negative serology and endoscopy. As per, , patient hasn't followed up GI, since that time. EGD/colonoscopy prior to 2015 was on 02/23/15 with the following findings: Gastropathy. Sliding hiatal hernia. Nonobstructing Schatzki's. Diverticulosis. Otherwise visually unremarkable colonoscopy to cecum. ED VS 199/111, 105, 16, 98% on RA, afebrile, labs showed mild leukocytosis, mild lactate, low K, Mg. PCT0.05. pt received pepcid, reglan, benadryl, zofran, however still symptomatic. ROS: detailed ROS were not available as pt was retching, no dysuria, no chest pain, SOB, feeling cold didn't take temp at home Hospital Course 71 year old female with history of hypertension, hyperlipidemia, COPD, asthma, mitral valve regurgitation, aortic stenosis, GERD, diverticulitis, and recurrent nausea and vomiting of unclear etiology, acute dx Intractable nausea/vomiting/diarrhea Initially pt looked toxic, distressed due to pain, nausea, vomiting. It was noted that pt had previous recurrent similar problems, hx of gastritis and colitis in the past, multiple EGD/colonoscopy failed to reveal any etiologies. Patient was supportively treated with IVF, zofran. However, given leukocytosis with many poly, pt was empirically started with flagyl and Levaquin. CT abd/ pelvis 10/31 showed probable early distal colonic diverticulosis with mild surrounding inflammation, Thickening of the wall of the ascending and transverse colon. Based on CT findings, empirica abx were continued. patient was improved significantly, tolerated diet well. Later it was found in stools PCR that c.diff, EPEC positive.Since diarrhea was not observed, patient is tolerating diet with no symptoms, pt deemed safe for d/c. Plan is to continue Flagyl PO to finish 14days course. Levaquin was stopped. and continue zofran, reglan as needed. Patient was also encouraged to have fiber rich diet given diverticulsis, healthy diet for diabetes and follow up with in the clinic as needed. ZUHAIR, POA, likely prerenal from GI fluid loss, improved with IVF although not reached to baseline upon d/c. Hyponatremia/hyochloremia POA, likely due to GI fluid loss, improved with IVF. chronic, stable HTN, uncontrolled likely due to stress reaction and long standing based on previous TTE, LVH, severe concentric hypertrophy -BP better controlled today. -increase coreg to 12.5mg bid, added labetalol 10mg q8h prn for SBP>180 -added amlodipine 5mg 11/02 COPD, not active on exam, -continue spiriva, symbicort and albuterol prn hyperlipidemia -continue zocor while monitoring LFT depression -continue celexa at lower dose diet: advance as tolerate dispo: likely 1-2days Full code dvt ppx: LMWH Exam Vital Signs (Last) Date Time Temp Pulse Resp B/P Pulse Ox O2 Delivery O2 Flow Rate FiO2 11/04/16 07:58 88 11/04/16 06:26 37.1 16 116/69 96 Room Air Exam NAD, comfortable on the bed MMM, no JVD, tachy, regular, nl S1 S2 no mrg CTAB no w,c S,ND,NT, normoactive BS+ warm, no edema Test 10/31/16 15:35 10/31/16 17:43 11/01/16 05:40 11/04/16 05:25 Hold Purple Top Tube Received (Received) Hold Blue Top Tube Received (Received) Lipase 33U/L (13-60) Procalcitonin 0.05ng/mL (0.00-0.08) Hold [place] Top Tube Received (Received) Hold [place] Top Tube Received (Received) Urine Color Yellow (YELLOW) Urine Appearance Clear (CLEAR,HAZY) Urine pH 7.5 (5.0-8.0) Urine Specific [place] 1.020 (1.003-1.035) Urine Protein Tracemg/dL (NEG,TRACE) Urine Glucose (UA) Negativemg/dL (NEGATIVE) Urine Ketones Negativemg/dL (NEGATIVE) Urine Occult Blood Negative (NEGATIVE) Urine Nitrite Negative (NEGATIVE) Urine Bilirubin Negative (NEGATIVE) Urine Urobilinogen Normalmg/dL (NORMAL) Urine Leukocyte Esterase Negative (NEGATIVE) Urine RBC 0-2/hpf (0-2) Urine WBC 0-5/hpf (0-5) Urine Epithelial Cells Occasional/hpf (NONE-MOD) Urine Crystals None seen (NONE SEEN) Urine Bacteria None/hpf (NONE-FEW) Urine Hyaline Casts None/lpf (NONE) Urine Granular Casts None seen (NONE SEEN) Urine Waxy Casts None seen (NONE SEEN) Urine Red Blood Cell Casts None seen (NONE SEEN) Urine White Blood Cell Casts None seen (NONE SEEN) Urine Mucus None seen (None Seen) Urine Trichomonas None seen (NONE SEEN) Urine Yeast None (NONE SEEN) Urinalysis Comment None Urine Culture Reflexed Not indicated Hemoglobin A1c 6.3% (4.8-5.6) Lactic Acid Level 1.6mmol/L (0.4-2.0) White Blood Count 11.0th/mm3 (3.8-10.1) Red Blood Count 3.59mil/mm3 (3.90-5.20) Hemoglobin 10.9g/dL (12.0-15.6) Hematocrit 32.5% (35.0-46.0) Mean Corpuscular Volume 90.5fL (81-100) Mean Corpuscular Hemoglobin 30.4pg (27.0-35.0) Mean Corpuscular Hemoglobin Concent 33.5% (32.0-37.0) Red Cell Distribution Width 12.6% (12.3-15.4) Platelet Count 88bil/L (150-400) Neutrophils (%) (Auto) 58.6% (40-74) Lymphocytes (%) (Auto) 27.8% (14-46) Monocytes (%) (Auto) 12.5% (4-12) Eosinophils (%) (Auto) 0.5% (0-5) Basophils (%) (Auto) 0.2% (0-3) Sodium Level 136mEq/L (134-144) Potassium Level 3.6mEq/L (3.5-5.2) Chloride Level 103mEq/L (97-108) Carbon Dioxide Level 20mmol/L (18-29) Blood Urea Nitrogen 24mg/dL (8-27) Creatinine 1.11mg/dL (0.57-1.00) Estimat Glomerular Filtration Rate 70mL/min (>59) Glucose Level 100mg/dL (60-99) Calcium Level 8.2mg/dL (8.5-10.1) Phosphorus Level 2.8mg/dL (2.5-4.9) Magnesium Level 1.6mg/dL (1.6-2.6) Total Bilirubin 0.6mg/dL (0.0-1.2) Aspartate Amino Transf (AST/SGOT) 24U/L (0-50) Alanine Aminotransferase (ALT/SGPT) 16U/L (0-32) Alkaline Phosphatase 75U/L (25-165) Total Protein 5.1g/dL (6.4-8.4) Albumin 3.0g/dL (3.4-5.0) Discharge Medications Discharge Medications Atorvastatin (Lipitor) 40 Mg Tablet 40 MG PO DAILY (Reported) Budesonide/Formoterol 160-4.5 mcg Inh (Symbicort 160-4.5 mcg Inh) 120 Puff Inhaler 2 PUFF INHALATION BID (Reported) Carvedilol (Carvedilol) 6.25 Mg Tablet 12.5 MG PO BID Prescribed by: MURALI DENTON MD Citalopram (Citalopram) 20 Mg Tablet 20 MG PO DAILY (Reported) Cyanocobalamin (Vitamin B-12) (Vitamin B12) 5,000 Mcg Tab.rapdis 5,000 MCG PO DAILY (Reported) Fluticasone Propionate (Fluticasone Propionate Nasal) 16 Gm [place].susp 2 SPRAY NS DAILY (Reported) L.acidoph & Paracasei,B.lactis (Probiotic) 10 Billion Cell Capsule 1 EACH PO DAILY (Reported) Metronidazole (Flagyl) 500 Mg Tablet 500 MG PO Q8H Prescribed by: MURALI DENTON MD Pantoprazole DR (Pantoprazole DR) 40 Mg Tablet.dr 40 MG PO DAILY (Reported) Tiotropium Fields (Spiriva) 18 Mcg Cap.w.dev 18 MCG IH DAILY (Reported) Ubidecarenone (Co Q-10) 100 Mg Capsule 100 MG PO DAILY (Reported) As needed Albuterol HFA (Proair HFA) 8.5 Gm Hfa.aer.ad 2 PUFFS INHALATION Q4-6H PRN PRN For Shortness of Breath (Reported) Albuterol Neb Soln (Albuterol Neb Soln) 2.5 Mg/3 Ml Vial.neb 2.5 MG IH Q4 PRN PRN For Shortness of Breath (Reported) Epinephrine (Epipen 2-Mu) 0.3 Mg/0.3 Ml Auto.injct 0.3 MG IM PRN For Anaphyllaxis (Reported) Metoclopramide (Metoclopramide) 10 Mg Tablet 5 MG PO ACHS PRN PRN For Nausea Prescribed by: MURALI DENTON MD Ondansetron ODT (Zofran ODT) 4 Mg Tablet 4 MG PO Q4H PRN PRN For Nausea Prescribed by: MURALI DENTON MD Additional med instructions Take Zofran or Reglan as needed for nausea or vomiting Please continue to take Flagyl 500mg every 8hours for 9more days for your bowel infection Followup Plan Disposition: home Follow-up plan Please follow-up with your doctor in 2 weeks Discharge Diet: Low fat, Low Sodium, Other (please follow diet instruction for diverticulosis) Discharge Activity: No restrictions Patient Instructions You were hospitalized with intractable nausea, vomiting, diarrhea, found to have bacterial infection in your colon "Clostridium difficile colitis". You were treated with antibiotics, IV fluid, medicines to alleviate your symptoms and responded well. Please note that you are encouraged to follow dietary instruction given for diverticulosis, diabetes Please follow medicine instruction as above Please return to hospital if you develop severe abdominal pain, nausea, vomiting Please follow up with GI doctor, if symptoms reoccur Follow-up Provider: Cristy Mcclellan Follow-up with PCP in: 2 weeks Time spent 65min Murali Denton MD November 04, 2016 11:14
== END 2016-11-04 11:00 | disposition home or self-care (01) | DRG 372 ==
LOC: SED 15:12 → OSC 16:43 → OBSVTOIN 16:43 → OSC 17:52
PROVIDERS: ADMIT Internal Medicine; ATTEND Internal Medicine
DX: A04.7 Enterocolitis due to Clostridium difficile (principal); K57.32 Diverticulitis of large intestine without perforation or abscess without bleeding; N17.9 Acute kidney failure, unspecified; E87.1 Hypo-osmolality and hyponatremia; I10 Essential (primary) hypertension; E78.5 Hyperlipidemia, unspecified; J44.9 Chronic obstructive pulmonary disease, unspecified; J45.909 Unspecified asthma, uncomplicated; K21.9 Gastro-esophageal reflux disease without esophagitis; F32.9 Major depressive disorder, single episode, unspecified; A04.0 Enteropathogenic Escherichia coli infection; Z87.891 Personal history of nicotine dependence

== ENCOUNTER 2016-12-14 11:51 | Inpatient (IN) | payer MEDICARE ==
[~2016-12-14] VITALS: Ht 152.4 cm; Wt 79.1 kg
[2016-12-14] VITALS (11 sets, daily range): BP systolic 169–215; BP diastolic 97–129; PULSE 83–132; RESP 11–20; O2SAT 95–99
[~2016-12-14 11:51] MED LIST changes: +METO10TA3 PO; +METR500T PO; +ONDA4TAB9 PO
--- NOTE | 2016-12-14 12:00 | ED.REPORT ---
HPI-Abd Pain F 40 and Over Date of Service Dec 14, 2016 ED Provider: Jeremiah Kiser MD The patient is a 71 year old female with history of hypertension, hyperlipidemia , COPD, diverticulitis, GERD, asthma, aortic stenosis, and mitral valve regurgitation, who presents to the emergency department complaining of diarrhea that began last night after eating prunes. She has also experienced nausea, vomiting, elevated blood pressure (206 systolic), and diaphoresis. No one else at home is sick. She has had similar symptoms in the past. Her last episode she was diagnosed with diverticulitis. She as last admitted to the hospital from -11/04 for diverticulitis and C. Diff. She denies abdominal pain, bloody stools , bloody emesis, fever, chest pain, difficulty breathing, headache, and visual changes. Nursing Notes Stated Complaint: ABD PAIN/VOMITING Chief Complaint: Female Abdominal Pain Nursing Notes Reviewed: Yes Allergies: Coded Allergies: Penicillins (Verified Allergy, Severe, Anaphylaxis- OK WITH CEPHALOSPORINS , 12/14/16) codeine (Verified Adverse Reaction, Severe, Nausea,Vomiting, 12/14/16) promethazine (Verified Adverse Reaction, Unknown, Hallucinations, 12/14/16) Scheduled Atorvastatin (Lipitor) 40 Mg Tablet 40 MG PO DAILY Budesonide/Formoterol 160-4.5 mcg Inh (Symbicort 160-4.5 mcg Inh) 120 Puff Inhaler 2 PUFF INHALATION BID Citalopram (Citalopram) 20 Mg Tablet 20 MG PO DAILY Cyanocobalamin (Vitamin B-12) (Vitamin B12) 5,000 Mcg Tab.rapdis 5,000 MCG PO DAILY Fluticasone Propionate (Fluticasone Propionate Nasal) 16 Gm [place].susp 2 SPRAY NS DAILY Losartan Potassium (Losartan Potassium) 25 Mg Tablet 25 MG PO DAILY Pantoprazole DR (Pantoprazole DR) 40 Mg Tablet.dr 40 MG PO DAILY Tiotropium [place] (Spiriva) 18 Mcg Cap.w.dev 18 MCG IH DAILY Ubidecarenone (Co Q-10) 100 Mg Capsule 100 MG PO DAILY Scheduled PRN Albuterol HFA (Proair HFA) 8.5 Gm Hfa.aer.ad 2 PUFFS INHALATION Q4-6H PRN PRN For Shortness of Breath Albuterol Neb Soln (Albuterol Neb Soln) 2.5 Mg/3 Ml Vial.neb 2.5 MG IH Q4 PRN PRN For Shortness of Breath Epinephrine (Epipen 2-Mu) 0.3 Mg/0.3 Ml Auto.injct 0.3 MG IM PRN For Anaphyllaxis General Time Seen by MD: 11:58 Chief Complaint Diarrhea moderate Hx Obtained From: Patient, Spouse Arrived By: Walk-in Sudden in Onset?: Yes Onset Occurred: Yesterday Symptom Duration: Since onset Progression since Onset: Constant Location: : Diffuse Severity: Current: No pain currently Severity: Maximum: No pain Associated with: Reports: Diarrhea, Nausea, Vomiting, Denies: Fever Pertinent Negative: Pt denies other symptoms Recent Healthcare: No recent doctor visit, No recent hospitalization Similar Sx Previous: No Past Medical History Past Medical History Nausea and vomiting unclear etiology Hypertension Hyperlipidemia Depression COPD Divertiuclitis GERD Asthma Mitral valve regurgitation Moderate-severe aortic stenosis Past Surgical History Bladder surgery Eye surgery R rotator cuff surgery October 2016 Denies ABD surgeries Family History Noncontributory Smoking History Former Smoker Social History Alcohol Use: 1-3 per week Drug Use: Denies drug use Other Social History: Good social support, , Local resident Ambulatory Status Independent Review of Systems +elevated blood pressure Constitutional: Denies: Fever Respiratory: Denies: Shortness of breath Cardiovascular: Denies: Chest pain GI: Reports: Diarrhea, Nausea, Vomiting, Denies: Abdominal pain, Bloody/tarry stool, Hematemesis, Hematochezia, Melena Complete sys rev & neg: except as marked. Skin: Reports Diaphoresis Neurologic: Denies: Headache, Vision change Physical Exam Vital Signs Vital Signs (First) Date Time Temp Pulse Resp B/P Pulse Ox O2 Delivery O2 Flow Rate FiO2 12/14/16 11:54 36.6 132 20 207/108 98 Room Air Initial VS: Reviewed Head / Eyes: Atraumatic, Normocephalic, PERRL ENT: Mucous membranes moist, Conjunctiva normal, No scleral icterus Neck: Supple, Non-tender, Full range of motion Lymphatic: No lymphadenopathy Extremities: Vascular intact, Neuro intact, No swelling, No tenderness Skin: Warm, Dry, No cyanosis Neurologic: Alert, Oriented, Nonfocal Psychiatric: Mood/affect normal, Behavior normal, Normal thought content General/Constitutional: Awake, Alert Appearance / Presentation: Positive: Uncomfortable Respiratory / Chest: Atraumatic, Breath sounds NL, Breath sounds = bilat, No respiratory distress, No rales, No rhonchi, No wheezing, No stridor Cardiovascular: Heart rate NL, Regular rhythm, Heart sounds NL, No gallop, No murmurs, No rubs, Peripheral circulation NL Abdomen: Atraumatic, Soft, Non-tender, McBurney's non-tender, No guarding, No rebound, BS normoactive, No distention, No hernia, No palpable mass, No pulsatile mass Back: Inspection NL, Non-tender, No CVA tenderness Interpretation & Diagnostics Lab Results Interpretation Result Diagram: 12/15/16 0125 12/15/16 0125 Test 12/14/16 12:10 12/14/16 14:41 Calcium (Send out) 10.4mg/dL (8.7-10.3) Lipase 32U/L (13-60) Vitamin D 25-Hydroxy 46.5ng/mL (30.0-100.0) Thyroid Stimulating Hormone (TSH) 3.620uIU/mL (0.450-4.500) Free Thyroxine 1.13ng/dL (0.82-1.77) Parathyroid Hormone Interpretation Comment (.) Total Intact Parathyroid Hormone 23pg/mL (15-65) Urine Color Straw (YELLOW) Urine Appearance Clear (CLEAR,HAZY) Urine pH 7.5 (5.0-8.0) Urine Specific [place] 1.015 (1.003-1.035) Urine Protein 100mg/dL (NEG,TRACE) Urine Glucose (UA) Negativemg/dL (NEGATIVE) Urine Ketones Negativemg/dL (NEGATIVE) Urine Occult Blood Trace (NEGATIVE) Urine Nitrite Negative (NEGATIVE) Urine Bilirubin Negative (NEGATIVE) Urine Urobilinogen Normalmg/dL (NORMAL) Urine Leukocyte Esterase Negative (NEGATIVE) Urine RBC 0-2/hpf (0-2) Urine WBC 0-5/hpf (0-5) Urine Epithelial Cells None/hpf (NONE-MOD) Urine Crystals None seen (NONE SEEN) Urine Bacteria None/hpf (NONE-FEW) Urine Hyaline Casts None/lpf (NONE) Urine Granular Casts None seen (NONE SEEN) Urine Waxy Casts None seen (NONE SEEN) Urine Red Blood Cell Casts None seen (NONE SEEN) Urine White Blood Cell Casts None seen (NONE SEEN) Urine Mucus None seen (None Seen) Urine Trichomonas None seen (NONE SEEN) Urine Yeast None (NONE SEEN) Urinalysis Comment None Urine Culture Reflexed Not indicated Urine Opiates Screen Negative Urine Methadone Screen Negative Urine Barbiturates Screen Negative Urine Amphetamines Screen Negative Urine Benzodiazepines Screen Negative Urine Cocaine Metabolite Screen Negative Urine Cannabinoids Screen Positive ECG Interpretation ECG Interpretation: Sinus tachycardia with a rate of 92 bpm T wave inversions aVR and V1 which is unchanged from previous Time: 12:43 Interpreted by: ED physician CT Abd / Pelvis Interpretation IMPRESSION: Long segment transverse and descending colon wall thickening, suggesting nonspecific colitis most likely infectious or inflammatory in nature (versus ischemic). Recommend clinical/laboratory correlation. Normal appendix. Scattered colonic diverticulosis without evidence of acute location. 5 mm pulmonary nodule in the left lung base. Recommend followup with noncontrast chest CT in 6 months to exclude early metastatic/malignant possibilities. Additional findings as above. Dictated by: Eulalio Hogan M.D. on 12/14/2016 at 14:33 Study type: Abdominal CT IV contrast Interpretation / Wet Read by: Interpret - Radiologist Re-Eval/Medical Decision Med Decision/Clinical Course 71-year-old female history of COPD, aortic stenosis and recent admission for nausea vomiting diarrhea and C. difficile colitis presenting with recurrence of nausea vomiting diarrhea 1 day. She was discharged several weeks ago on 2 weeks of oral Flagyl. Now recurrence with recurrent nausea vomiting diarrhea. She is vomiting in the ER. She is mildly tender. Her CT shows colitis. White blood cell count is 13,000. Her lactate is elevated above 3. Discussed with infectious disease Dr. Lind likely recurrence of her C. difficile colitis cultures are pending. Recommended admission and treatment with fidaxomicin. Admitted to hospitalist. 3 L normal saline given. Source of Hx: Old records Re-Evaluation/Progress : Time of Eval: 14:20 Re-Evaluation/Progress Note: Rechecked the patient. She is feeling okay at this time. She was previously treated with Flagyl for C. Diff and felt better until last night. Discussed plan for admission. The patient understands and agrees with the plan. All questions were addressed. Consultation #1: Consulted With: Hospitalist Requested Call at: 14:46 Truck Cleaner: Will see patient, Agrees with eval, Agrees with plan, Accepts admit Consultation #2: Referral / Consult Name: Lind,Mando MD Call Returned at: 14:51 Truck Cleaner: Agrees with eval, Agrees with plan Note: Spoke with the infectious disease specialist about the patient's case. Counseled Regarding: Diagnosis, Lab results, Need for follow-up, When/why to return to ED Discharge & Departure Primary Impression: Colitis Additional Impressions: Nausea, vomiting, and diarrhea Dehydration H/O Clostridium difficile infection Disposition: ADMITTED TO HOSPITAL Discharge Condition All VS Reviewed: Yes Condition: Stable Referrals: Cristy Mcclellan (PCP) [employer] Attestation Portions of this note were transcribed by Veronica Muniz. I, Dr. Kiser personally performed the history, physical exam and medical decision-making; I reviewed and confirmed the accuracy of the information in the transcribed note. Signed by: Mitzi Ortega, 12/14/2016 at 1500. copies to: Cristy Mcclellan Ben M MD Dec 14, 2016 12:00 Veronica Muniz Dec 14, 2016 12:04
[2016-12-14] MEDS ORDERED: 0.9% Sodium Chloride 1,000 ML IV ONE ×3 (12:19→15:40)
[2016-12-14 12:25] LABS: BASOPHILS % (AUTO) 0.3 % (0-3); EOSINOPHILS % (AUTO) 4.7 % (0-5); MONOCYTES % (AUTO) 6.6 % (4-12); Mean Corpuscular Hemoglobin 30.6 pg (27.0-35.0); Mean Corpuscular Volume 92.6 fL (81-100); NEUTROPHILS % (AUTO) 65.1 % (40-74); Platelet Count 282 bil/L (150-400)
[2016-12-14] MEDS ORDERED: Labetalol 5 mg/mL 4 mL Inj IVPUSH ONE ×2 (12:30→16:45)
[2016-12-14] MEDS: Ondansetron 2 mg/mL 2 mL Inj IVPUSH PRN ×4 (12:31→15:09)
[2016-12-14 12:36] LABS: Magnesium 1.8 mg/dL (1.6-2.6)
[2016-12-14] MEDS ORDERED: Labetalol 5 mg/mL 20 mL Inj IV ONE (12:50)
--- NOTE | 2016-12-14 14:44 | DRSVH ---
PROCEDURE: CT ABDOMEN AND PELVIS WITH CONTRAST (PNL-7102) INDICATIONS: abd pain TECHNIQUE: After the administration of intravenous contrast, 5 mm thick sections acquired from the diaphragm to the symphysis. 5 mm coronal and sagittal reformats were acquired. For radiation dose reduction, the following was used: automated exposure control, adjustment of mA and/or kV according to patient michelle vela. COMPARISON: [facility], CT, CT ABD PELVIS W CON, 01/04/2016, 17:15. FINDINGS: Image quality: Excellent. ABDOMEN: Lung bases: The visualized lung bases, there is a 4-5 mm left basilar pulmonary nodule on image 4. Th ere is additional groundglass nodule adjacent to this measuring 5 mm. No acute consolidation or pleur al effusion. There is scattered scarring/atelectasis Solid organs: Mild hepatic steatosis. Otherwise liver and spleen are normal in size and enhancement. Gallbladder grossly unremarkable. Biliary system is non dilated. Pancreas enhances normally. No a drenal nodules. Kidneys demonstrate normal size and enhancement, without hydronephrosis. Peritoneum and bowel: No free fluid or air. Scattered colonic diverticuli are present as before alth ough no evidence of acute diverticulitis. The rectum is decompressed therefore unremarkable. Long seg ment transverse and descending colonic wall thickening. There is minimal if any adjacent inflammatory stranding. Nodes and vessels: No retroperitoneal or mesenteric adenopathy by size criteria. IVC unremarkable ve ry mild 2.4 cm ectasia of the infrarenal abdominal aorta. There are scattered atheromatous calcificat ions. Miscellaneous: No ventral hernias. PELVIS: Genitourinary: Bladder wall thickness is normal. Miscellaneous: No inguinal hernias or adenopathy. Bones: No suspicious bony lesions. No vertebral body compression fractures. Mild anterior wedging of T11 is unchanged IMPRESSION: Long segment transverse and descending colon wall thickening, suggesting nonspecific colitis most lik radha infectious or inflammatory in nature (versus ischemic). Recommend clinical/laboratory correlation . Normal appendix. Scattered colonic diverticulosis without evidence of acute location. 5 mm pulmonary nodule in the left lung base. Recommend followup with noncontrast chest CT in 6 months to exclude early metastatic/malignant possibilities. Additional findings as above. Dictated by: Eulalio Hogan M.D. on 12/14/2016 at 14:33 Approved by: Eulalio Hogan M.D. on 12/14/2016 at 14:43
[2016-12-14] MEDS ORDERED: LOSA25TA21 PO (14:45)
[2016-12-14 14:57] LABS: APPEARANCE,URINE CLEAR (CLEAR,HAZY); COLOR,URINE STRAW (YELLOW); OCCULT BLOOD,URINE TRACE (NEGATIVE); PH,URINE 7.5 (5.0-8.0); UROBILINOGEN,URINE NORMAL (NORMAL)
[2016-12-14] MEDS ORDERED: MetoCLOpramide 5 mg/mL 2 mL Inj ONE (15:14)
[2016-12-14] MEDS ORDERED: Alum-Mag Hydrox-Simeth 30 mL Suspension PO PRN (15:20)
[2016-12-14] MEDS ORDERED: Ondansetron 2 mg/mL 2 mL Inj IVPUSH PRN (15:20)
[2016-12-14] MEDS ORDERED: Labetalol 5 mg/mL 4 mL Inj IVPUSH PRN (15:30)
[2016-12-14] MEDS ORDERED: MetoCLOpramide 5 mg/mL 2 mL Inj IVPUSH ONE (15:40)
--- NOTE | 2016-12-14 16:08 | PCM.HPMED ---
Subjective Date of Service Dec 14, 2016 Primary Provider: Admitting Physician: Primary Care Physician: Cristy Mcclellan Attending Physician: Chief Complaint: Sudden onset intractable nausea, vomiting History of Present Illness: 71 year old female with history of hypertension, hyperlipidemia, COPD, asthma, mitral valve regurgitation, aortic stenosis, GERD, diverticulitis, and recurrent nausea and vomiting of unclear etiology presented with acute onset nausea, vomiting, diaphoresis since last evening. Pt was recently hospitalized(-) with similar symptoms of abd pain, n,v, diarrhea. CT abd/pelvis 10/31 showed probable early distal colonic diverticulosis with mild surrounding inflammation, Thickening of the wall of the ascending and transverse colon. Based on CT findings, empirically started abx, later found to have c.diff. EPEC , pt was discharged with Flagyl to finish 14days. Of note, pt has hx of gastritis and colitis in the past, multiple EGD/colonoscopy failed to reveal any etiologies. GI was not consulted at this admission. Since pt is active retching, hx of partially obtained by her pt was USOH as per , having regular BM, eating well with good appetite, finished abx as scheduled. after having last night, pt started having nausea, vomiting throughout the night, pt also had multiple diarrhea, but pt thought it was from prune juice she took. pt denied travel, sick contacts, unsual food intake. pt denied cough, sputum, urinary complaints. ED VS hypertensive 200s, received 10mg labatalol iv but remained 190s, initially tachy to 130s but resolved with IVF to 90s, RR16, afebrile, 96% on RA , labs showed elevated WBC13.6. CMP grossly normal, lactate3.9, normalized with IVF, CT abd showed Long segment transverse and descending colon wall thickening , suggesting nonspecific colitis most likely infectious or inflammatory in nature (versus ischemic). During the interview in ED, pt looked markedly distressed with actively retching , no vomitus noted, noticed facial rash and upper back, stated that rash started since adm. pt c/o persistent nausea after zofran 4mg iv x4, c/o lightheadedness, hotness and coldness. Review of Systems: Limited due to active retching Allergies Coded Allergies: Penicillins (Verified Allergy, Severe, Anaphylaxis- OK WITH CEPHALOSPORINS , 12/14/16) codeine (Verified Adverse Reaction, Severe, Nausea,Vomiting, 12/14/16) promethazine (Verified Adverse Reaction, Unknown, Hallucinations, 12/14/16) PMH Past Medical History 11/17/2014 EF of 70%, LVH, moderately severe mitral regurg and moderately severe aortic stenosis A aortic valve area 1 cm Hypertension Hyperlipidemia Depression COPD diverticulosis Asthma Surgical History bladder surgery eye surgery denies ABD surgeries Family History no hx of IBD Social History Hx Alcohol Use: Yes (occassionally ) Hx Substance Use: No Hx Tobacco Use: No (quit 40 years ago) Smoking Status: Former Smoker Exam Vital Signs Vital Sign - Last Date Time Temp Pulse Resp B/P Pulse Ox O2 Delivery O2 Flow Rate FiO2 12/14/16 15:10 94 16 192/111 98 Room Air 12/14/16 12:23 36.8 Exam acutely distressed due to n,v no JVD, MMM, no LAD RRR, nl s1, s2 no mrg CTAB, no w,c S,ND,NT,normoactive BS+ warm, no edema, pulses 2/2 Lab and Diagnostics Result Diagram: 12/14/16 1210 12/14/16 1210 X-Rays, CTs and MRIs PROCEDURE: CT ABDOMEN AND PELVIS WITH CONTRAST ([id number]) INDICATIONS: abd pain TECHNIQUE: After the administration of intravenous contrast, 5 mm thick sections acquired from the diaphragm to the symphysis. 5 mm coronal and sagittal reformats were acquired. For radiation dose reduction, the following was used: automated exposure control, adjustment of mA and/or kV according to patient size. COMPARISON: [facility], CT, CT ABD PELVIS W CON, 01/04/2016, 17:15. FINDINGS: Image quality: Excellent. ABDOMEN: Lung bases: The visualized lung bases, there is a 4-5 mm left basilar pulmonary nodule on image 4. There is additional groundglass nodule adjacent to this measuring 5 mm. No acute consolidation or pleural effusion. There is scattered scarring/atelectasis Solid organs: Mild hepatic steatosis. Otherwise liver and spleen are normal in size and enhancement. Gallbladder grossly unremarkable. Biliary system is non dilated. Pancreas enhances normally. No adrenal nodules. Kidneys demonstrate normal size and enhancement, without hydronephrosis. Peritoneum and bowel: No free fluid or air. Scattered colonic diverticuli are present as before although no evidence of acute diverticulitis. The rectum is decompressed therefore unremarkable. Long segment transverse and descending colonic wall thickening. There is minimal if any adjacent inflammatory stranding. Nodes and vessels: No retroperitoneal or mesenteric adenopathy by size criteria. IVC unremarkable very mild 2.4 cm ectasia of the infrarenal abdominal aorta. There are scattered atheromatous calcifications. Miscellaneous: No ventral hernias. PELVIS: Genitourinary: Bladder wall thickness is normal. Miscellaneous: No inguinal hernias or adenopathy. Bones: No suspicious bony lesions. No vertebral body compression fractures. Mild anterior wedging of T11 is unchanged IMPRESSION: Long segment transverse and descending colon wall thickening, suggesting nonspecific colitis most likely infectious or inflammatory in nature (versus ischemic). Recommend clinical/laboratory correlation. Normal appendix. Scattered colonic diverticulosis without evidence of acute location. 5 mm pulmonary nodule in the left lung base. Recommend followup with noncontrast chest CT in 6 months to exclude early metastatic/malignant possibilities. Additional findings as above. Dictated by: Eulalio Hogan M.D. on 12/14/2016 at 14:33 Approved by: Eulalio Hogan M.D. on 12/14/2016 at 14:43 Assessment & Plan 71 year old female with history of hypertension, hyperlipidemia, COPD, asthma, mitral valve regurgitation, aortic stenosis, GERD, diverticulitis, and recurrent nausea and vomiting of unclear etiology, acute, active Sudden onset intractable n,v, POA, this is recurrent episode, CT abd showed diffuse colitis, possible infectious given recent c.diff although pt denied having constant diarrhea. last GI w/u- flex sig showed moderate diverticulosis in the sigmoid colon. There was a rather tortuous corner in the sigmoid colon. small erosion on a single fold near the transverse colon, later biopsy was negative for dysplasia or malignancy. It's possibly primary GI pathology given unremarkable infectious markes, no fever,mild wbc,PCT, previously suspected pheochromocytoma, neuroendocrine tumor but w/u neg. -will get stool PCR, start Deficid per discussion with ID per ED, appreciate ID recommendation -s/p 3liter of NS, continue ns 100cc/hr, -zofran 4-8mg q4h for n,v, -dilaudid prn for pain, -will consider GI consult given recurrent episode, EGD/colonoscopy hot flush, lightheadedness, POA, possibly medication reaction, ?morphine ?reglan , no signs of anaphylaxis, angioedema. This was also noted in previous admission , suspected pheochromocytoma, carcinoid, but serum metanephrine was negative. -observe for now, benadryl prn. -get freet4, TSH, metanephrine -consider CTH if lightheadedness continues HTN, uncontrolled likely due to stress reaction with active belching, it likely that pt has underling uncontrolled HTN based on previous TTE, LVH, severe concentric hypertrophy -continue losartan tomorrow, start labetalol 20mg iv q6h while NPO, hypercalcemia, POA, will get PTH, vitD chronic, stable COPD, not active on exam, continue spiriva, symbicort and albuterol prn hyperlipidemia, continue zocor while monitoring LFT depression, continue celexa at lower dose diet:NPO for now dispo:Patient will be admitted with inpatient status with expectation of inpatient therapy for more than 2 midnights dvt ppx: LMWH Full code Time spent 65min Murali Grubbs MD Dec 14, 2016 15:29
[2016-12-14] MEDS ORDERED: Albuterol 2.5 mg/3 mL Inhalation Solution NEB PRN (16:20)
[2016-12-14] MEDS ORDERED: Labetalol 5 mg/mL 20 mL Inj IVPUSH PRN (16:29)
--- NOTE | 2016-12-14 17:27 | NUR ---
Admit to [facility] room 1006/Enteric Precautions/BP Pt admitted to [facility] from ED. Transported on gurney and transferred with SBA to her room bed. Report received from Angelita ALVAREZ in the ED. Pt alert and oriented. Pt presented to ED with nausea and vomiting, at this time she is denying any symptoms. Pt placed on enteric precautions for history of c-diff. BP assesses at 214/114. notified. 10mg IV labetalol administered. BP reassessed at 30 minutes at 207/121. ordered an additional 10mg IV push of Labetalol. Care continues.
--- NOTE | 2016-12-14 19:46 | CONS ---
[address] [address] CONSULTATION REPORT PATIENT: GEO VAZQUEZ I : 1945 MR#: [id number] ADMIT: 12/14/2016 JOB ID: [id number] DATE OF SERVICE: 12/14/[address] Grubbs for this consult. REASON FOR THE CONSULT: Colitis. HISTORY OF PRESENT ILLNESS: The patient is a complex 71-year-old woman whom I know from an admission about a year ago. At that time in December 2015, she was admitted for a colitis of unknown etiology. Because of her long residence in [place], [place], we considered a number of exotic as well as more mundane possibilities. A stool PCR at that time was positive for enteropathogenic E. coli and she underwent endoscopy. The biopsies from that showed mild inflammation with focal ulceration of the colon. The exact cause of her symptoms was unclear, but nonetheless she improved considerably and was discharged. Following the admission last summer, the patient's GI symptoms apparently resolved, but in October of this year, she returned with additional, nausea, vomiting, diarrhea, and malaise. During that admission, she had a stool that was positive for C. diff and she was treated and discharged with Flagyl which seemed to improve her C. difficile colitis. Both the patient and her report that up until just last night, she was doing quite well. She was eating normally, had no nausea/vomiting, no diarrhea, and she had finished her outpatient Flagyl prescription. She had no fevers or sweats. The patient tells me yesterday she tried some prunes because if anything she was getting a bit constipated and was a little worried about that. During the night, she awakened and had multiple bowel movements as well as the development of nausea and vomiting. By morning she had developed fevers, chills, sweats, worsening nausea, worsening vomiting, and continued diarrhea. Because of all this, the patient's brought her to the ED, where she was evaluated earlier today and had a CT scan of the abdomen and pelvis just today which showed transverse and descending colon wall thickening consistent with colitis as well as a small pulmonary nodule. On that basis, I was called by the ED and asked about C. diff therapy. I recommended that we send a stool for C. diff as soon as possible and also that we obtain blood cultures and start the patient on Dificid as it would seem by far the most likely cause of this would be recurrent C. diff. The patient is seen this afternoon in her hospital [facility] bed. PAST MEDICAL HISTORY: 1. Asthma, COPD. 2. Hypertension. 3. Hyperlipidemia. 4. Depression. 5. Aortic stenosis. 6. Recurrent episodes of colitis with some unexplained and at least one in October 2016 explained by C. diff. 7. History of long-term residence in [place], [place]. SOCIAL HISTORY: The patient quit smoking cigarettes 40 years ago. She rarely drinks alcohol. As noted, she and her spend a great deal of time in [place], [place] a near the [facility] but they have not been back since June 2015. FAMILY HISTORY: Negative for TB in first or second-degree relatives. REVIEW OF SYSTEMS: The patient is a bit lethargic this afternoon but I was able to get most of her review of systems. She states she has no headache, no visual complaints, and no sores in the mouth or trouble swallowing. She has had no cough, shortness of breath, chest pain or wheezing. She has had nausea, vomiting, and diarrhea, all of which started during the night and early this morning. She has had no dysuria or urinary tract symptoms. She reports fever and chills along with drenching sweat, all of which started last night. No pain in the extremities. No swollen joints and no trouble with walking. Remainder of the review of systems is negative. PHYSICAL EXAMINATION: Reveals an afebrile woman, temp 36.7, pulse 93, respiratory rate 16, blood pressure 215/114. She is saturating 97% on room air. Examination of the mental status reveals it is clear. Eyes without conjunctivitis. Oral cavity without thrush or pharyngitis. Teeth are in good repair. Neck: Reasonably supple though difficult to examine in the position she finds herself lying in bed, and she is reluctant to move. Her arm is in a brace because she had rotator cuff surgery a month ago but her right arm appears relatively normal and she has good strength in her extremity. The patient's cardiac tones: Regular rate and rhythm with 2/6 systolic murmur consistent with aortic stenosis. No wheezing heard in the lung vital. The patient's abdomen is obese, soft, and nontender. There is no organomegaly that I can appreciate. Despite her nausea,vomiting, and diarrhea, her abdomen is surprisingly nontender and unimpressive. No suprapubic tenderness. She does not have a Christensen catheter. Her back is without tenderness. Lower extremities with minimal edema. There is no evidence of synovitis. No evidence of cellulitis. No skin breakdown. Neurologically, she is quite intact. LABORATORIES: Include white count 13,000, but no left shift. Creatinine 0.91, which is actually better than she has been in the past. Liver function tests normal except ALT 34. Procalcitonin is zero. Micro: We have a stool for C. diff PCR pending and we should have an answer in the next hour or two. Blood cultures are pending, but they are just a few hours old. Obviously nothing going on there. Back in October 2016, we had EPEC and C. diff in the stool back in 2015 when she had the prior workup in November 2015. She also had EPEC in her stool. The biopsies were previously discussed. IMAGING: Includes the abdominal CT today which shows the colitis as previously mentioned. 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 Last summer we had an extensive workup including colonoscopy that was nondiagnostic and she did not have Clostridium difficile. She then came back in October of this year and had more colitis type problems and did have Clostridium difficile. Given that Flagyl is probably is an inferior drug as compared to vancomycin and fidaxomicin for Clostridium difficile, I anticipate this will be a recurrence of the Clostridium difficile. It is also possible that this is more of whatever the nonspecific colitis that she had last summer or even another completely different process such as ischemic colitis. RECOMMENDATIONS: 1. Will continue with Dificid as I recommended to the ER staff the dose there is one tablet b.i.d. for 10 days. 2. We await the C. difficile PCR. If this is positive, I think we will not need to do too many more invasive studies and rather just watch for four or five days to see if she improves. 3. If the stool for C. difficile is negative, I think we should engage the GI service relatively soon as she may need an additional colonoscopy to try and help figure out why she keeps getting these episodes. 4. Will continue to closely follow this patient with you. KITA
[2016-12-14] MEDS: Labetalol 5 mg/mL 20 mL Inj IVPUSH SCH (21:07)
[2016-12-14] MEDS: Fluticasone-Salmeterol 500-50 Inhaler INHALATION SCH (21:21)
--- NOTE | 2016-12-14 22:42 | NUR ---
Hypertension/Lethary On initial assessment, patient's blood pressure was 197/129. Pharmacist was consulted as there were two different orders for labetalol IVP to be administered. 20mg was administered. Post medication administration, blood pressure was 169/110. Patient appeared lethargic and drowsy. Patient would not open eyes during assessment. Minimal answers given in response to questions regarding pain, bm, chest pain. Patient requested to ambulate to [facility] and then changed her mind. Patient stated she was too tired to move. Patient denies sob or pain. Patient requesting to sleep. Care continues. Addendum: 12/14/16 at 2311 by HOLLY ALVA RN Correction to title Lethargy
--- NOTE | 2016-12-14 23:12 | NUR ---
Lab Results Per the lab, patient is positive for CDiff and E-Coli.
[2016-12-15] VITALS (9 sets, daily range): BP systolic 157–191; BP diastolic 101–120; PULSE 93–118; RESP 14–18; O2SAT 93–100
[2016-12-15 01:37] LABS: BASOPHILS % (AUTO) 0.1 % (0-3); EOSINOPHILS % (AUTO) 0 % (0-5); MONOCYTES % (AUTO) 6.6 % (4-12); Mean Corpuscular Hemoglobin 31.1 pg (27.0-35.0); Mean Corpuscular Volume 90.4 fL (81-100); NEUTROPHILS % (AUTO) 87.7 % (40-74); Platelet Count 205 bil/L (150-400)
[2016-12-15] MEDS ORDERED: Labetalol 5 mg/mL 4 mL Inj IVPUSH ONE (02:30)
[2016-12-15] MEDS: Ondansetron 2 mg/mL 2 mL Inj IVPUSH PRN (04:11)
[2016-12-15] MEDS: Labetalol 5 mg/mL 20 mL Inj IVPUSH SCH (04:29)
[2016-12-15 05:09] LABS: Vitamin D, 25-Hydroxy 46.5 ng/mL (30.0-100.0)
[2016-12-15 06:45] LABS: BASOPHILS % (AUTO) 0.1 % (0-3); EOSINOPHILS % (AUTO) 0 % (0-5); MONOCYTES % (AUTO) 7.1 % (4-12); Mean Corpuscular Hemoglobin 31.1 pg (27.0-35.0); Mean Corpuscular Volume 91.1 fL (81-100); NEUTROPHILS % (AUTO) 85.3 % (40-74); Platelet Count 186 bil/L (150-400)
[2016-12-15 07:13] LABS: Magnesium 1.9 mg/dL (1.6-2.6); Phosphorus 3.9 mg/dL (2.5-4.9)
[2016-12-15] MEDS: Pantoprazole 40 mg ER24 Tablet PO SCH (07:29)
[2016-12-15] MEDS: Fluticasone 0.05% 15 Spray/2 Gm 16 Gm Nasal Spray NASAL SCH (08:50)
[2016-12-15] MEDS: Tiotropium 18mcg/Cap 5 Capsule Inhaler Kit INHALATION SCH (08:51)
[2016-12-15] MEDS: Fluticasone-Salmeterol 500-50 Inhaler INHALATION SCH ×2 (08:51→22:03)
--- NOTE | 2016-12-15 11:46 | PCM.PNMED ---
Subjective Date of Service Dec 15, 2016 Subjective She is seen today to follow up the confirmed recurrent C. Diff colitis/ Enteropathogenic E.Coli and the recent right shoulder cuff surgery. She also is having paroxysmal blood pressure. She is currently 176/100. The WBC is high at 22.5. The Lactic Acid level is 2.3. She is feeling much better and is quite disturbed to be told that she needed to be NPO today. It turns out that no colonoscopy is needed yet and so GI has not been consulted. Exam Vital Signs Vital Sign - Last Date Time Temp Pulse Resp B/P Pulse Ox O2 Delivery O2 Flow Rate FiO2 12/15/16 08:41 36.6 114 16 188/120 100 Room Air Intake and Output 12/14/16 12/14/16 12/15/16 Cumulative From/Thru 15:00 23:00 07:00 12/14/16 11:54 - 12/15/16 06:22 Intake Total 3000 ml 0 ml 0 ml 3000 ml Output Total 900 ml 600 ml 1500 ml Balance 3000 ml -900 ml -600 ml 1500 ml Intake Oral 0 ml 0 ml 0 ml IV Total 3000 ml 3000 ml Output Urine Total 600 ml 600 ml Urine/Stool Mix 900 ml 900 ml # Bowel Movements 1 0 1 Exam Heart: RRR without murmur Lungs: CTAB Ext: No ankle edema, large bulky sling on the right UE. Abdomen: Soft, Bowel Sounds normal, No masses, Not tender. Lab and Diagnostics Result Diagram: 12/15/16 0507 12/15/16 0507 X-Rays, CTs and MRIs PROCEDURE: CT ABDOMEN AND PELVIS WITH CONTRAST ([id number]) INDICATIONS: abd pain TECHNIQUE: After the administration of intravenous contrast, 5 mm thick sections acquired from the diaphragm to the symphysis. 5 mm coronal and sagittal reformats were acquired. For radiation dose reduction, the following was used: automated exposure control, adjustment of mA and/or kV according to patient size. COMPARISON: [facility], CT, CT ABD PELVIS W CON, 01/04/2016, 17:15. FINDINGS: Image quality: Excellent. ABDOMEN: Lung bases: The visualized lung bases, there is a 4-5 mm left basilar pulmonary nodule on image 4. There is additional groundglass nodule adjacent to this measuring 5 mm. No acute consolidation or pleural effusion. There is scattered scarring/atelectasis Solid organs: Mild hepatic steatosis. Otherwise liver and spleen are normal in size and enhancement. Gallbladder grossly unremarkable. Biliary system is non dilated. Pancreas enhances normally. No adrenal nodules. Kidneys demonstrate normal size and enhancement, without hydronephrosis. Peritoneum and bowel: No free fluid or air. Scattered colonic diverticuli are present as before although no evidence of acute diverticulitis. The rectum is decompressed therefore unremarkable. Long segment transverse and descending colonic wall thickening. There is minimal if any adjacent inflammatory stranding. Nodes and vessels: No retroperitoneal or mesenteric adenopathy by size criteria. IVC unremarkable very mild 2.4 cm ectasia of the infrarenal abdominal aorta. There are scattered atheromatous calcifications. Miscellaneous: No ventral hernias. PELVIS: Genitourinary: Bladder wall thickness is normal. Miscellaneous: No inguinal hernias or adenopathy. Bones: No suspicious bony lesions. No vertebral body compression fractures. Mild anterior wedging of T11 is unchanged IMPRESSION: Long segment transverse and descending colon wall thickening, suggesting nonspecific colitis most likely infectious or inflammatory in nature (versus ischemic). Recommend clinical/laboratory correlation. Normal appendix. Scattered colonic diverticulosis without evidence of acute location. 5 mm pulmonary nodule in the left lung base. Recommend followup with noncontrast chest CT in 6 months to exclude early metastatic/malignant possibilities. Additional findings as above. Dictated by: Eulalio Hogan M.D. on 12/14/2016 at 14:33 Approved by: Eulalio Hogan M.D. on 12/14/2016 at 14:43 Assessment & Plan 71 year old female with history of hypertension, hyperlipidemia, COPD, asthma, mitral valve regurgitation, aortic stenosis, GERD, diverticulitis, and recurrent nausea and vomiting. acute, active C.Diff recurrent Colitis/Enteropathogenic Ecoli: CT abd showed diffuse colitis , possible infectious given recent c.diff although pt denied having constant diarrhea. last GI w/u- flex sig showed moderate diverticulosis in the sigmoid colon. There was a rather tortuous corner in the sigmoid colon. small erosion on a single fold near the transverse colon, later biopsy was negative for dysplasia or malignancy. -started Deficid per discussion with ID per ED, appreciate ID recommendation -s/p 3liter of NS, continue ns 100cc/hr, -zofran 4-8mg q4h for n,v, -dilaudid prn for pain, -will consider GI consult given recurrent episode, consider EGD/colonoscopy Leykocytosis -Follow WBC and note 2 ab positive - Ecoli and Cdiff -Consider additional antibiotic coverage -No current symptoms to suggest ongoing colitis or systemic infection. hot flush, lightheadedness, POA, possibly medication reaction, ?morphine ?reglan , no signs of anaphylaxis, angioedema. This was also noted in previous admission , suspected pheochromocytoma, carcinoid, but serum metanephrine was negative. -observe for now, benadryl prn. -get freet4, TSH, metanephrine -consider CTH if lightheadedness continues HTN, uncontrolled likely due to stress reaction with active belching, it likely that pt has underling uncontrolled HTN based on previous TTE, LVH, severe concentric hypertrophy -Increase Losartan and begin on Metoprolol BID. hypercalcemia, POA, will get PTH, vitD Hyperglycemia. -Follow blood sugars and check A1C. chronic, stable COPD, not active on exam, continue spiriva, symbicort and albuterol prn hyperlipidemia, continue zocor while monitoring LFT depression, continue celexa at lower dose diet:Regular dispo:Patient was admitted with inpatient status with expectation of inpatient therapy for more than 2 midnights dvt ppx: LMWH Full code Resuscitation Status: CPR: Attempt Resuscitation Lenny Ragsdale MD Dec 15, 2016 10:01
--- NOTE | 2016-12-15 13:10 | PROG NOTE ---
[address] [address] PROGRESS NOTE PATIENT: GEO VAZQUEZ I : 1945 MR#: [id number] ADMIT: 12/14/2016 JOB ID: [id number] DATE: 12/15/2016 REASON FOR FOLLOWUP: C. difficile colitis. INTERVAL HISTORY: Recall that overnight yesterday the patient was readmitted with what appears to be a recrudescence of her C. difficile colitis. She states that this recent episode began Saturday night when she consumed her usual nightly dose of three doses of prunes. She said she has three prunes every night, some hours after this prune ingestion, she developed really fulminant diarrhea and started to feel quite ill. She was admitted yesterday and appropriate studies were ordered and she was started empirically on fidaxomicin. She reports that since yesterday, there has been a dramatic improvement. She reports that she has no fevers, no chills. No headache, no pulmonary complaints, and that her diarrhea is basically gone. PHYSICAL EXAMINATION: Reveals a comfortable, much more happy-looking woman lying in her bed. Temp 36.6. She has been afebrile since admission. Pulse 96, respiratory rate 16, blood pressure 157/112, and recall her blood pressures have been very elevated ever since she was readmitted. Her mental status is clear. Oral cavity benign. Lungs clear. Abdomen soft and nontender today. LABORATORIES: Include a white count which remains at 22,000, so really not changed, with 85% segs so still with left shift. Creatinine slightly worse than admission. It is 1.68. When it was 1st checked on the December 14 in the ER, it was 0.9, so she has suffered some renal injury. ALT is 39, not changed much from 34 on admission. Procalcitonin 0.5. Urinalysis without white cells. Urine was positive for cannabinoids. Stool PCR positive for EPEC as well as C. difficile. 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 difficile fairly recently which was treated here in the hospital with Flagyl. IMPRESSION: This patient presents with fairly acute onset of abdominal pain and diarrhea, which started on Saturday night, December 13, and led to her admission yesterday. She continues to have a very significant leukocytosis which is somewhat worrisome and also her creatinine has gone up considerably, so I think it is reasonable for us to watch her for a bit here in the hospital until her white count and creatinine starts to improve. At this point, I think the main thing for treatment would be fidaxomicin which is associated with a lower relapse rate than some or her other drugs. In addition, before or after she leaves, will give her a single dose of Zinplava to try and prevent recurrences. RECOMMENDATIONS: 1. I would continue with fidaxomicin. 2. Good hydration will be essential here. 3. Before the patient leaves our shortly thereafter, as her C. difficile improves, we will give her the new monoclonal antibody called Zinplava to try and decrease further her relapse rate.
--- NOTE | 2016-12-15 15:30 | NUR ---
Social Work: Initial Assessment D: EMR reviewed. Pt is a 71 y/o female admitted for colitis per H&P. SW met with pt at bedside to conduct initial assessment. Pt was alert and oriented x3. SW explained role and wrote phone number on white board. Pt's insurance is Medicare and [employer] Supplemental. PCP is GONZALEZ Lauren. Pt gave verbal consent to contact spouse, Domingo Chu ([phone]) for discharge planning. Pt stated she has completed DPOA/advanced directive ppw and SW encouraged pt to provide a copy to the hospital. Pt does not have LTC insurance or VA benefits. Pt does not own or use any DME. Pt is independent with ADLs. Pt drives. Pt is independent at baseline. Pt lives in a two-story home with 6 steps to enter and 14 steps to the second level. Pt lives at home in [place] with her spouse. Pt stated her spouse, Domingo Chu, will provide transport home via POV when pt is medically stable for discharge. RACHEL does not anticipate any discharge needs at this time but will continue to follow if needs arise. A: Pt who is independent at baseline P: Pt stated her spouse, Domingo Chu, will provide transport home via POV when pt is medically stable for discharge. RACHEL does not anticipate any discharge needs at this time but will continue to follow if needs arise. SOLOMON Leahy Addendum: 12/15/16 at 1534 by JIMBO ALEXANDER SS Amended: Links added.
--- NOTE | 2016-12-15 15:53 | NUR ---
HTN Pt HTN 191/116 HR 93. paged and aware. New orders expected. Addendum: 12/15/16 at 1713 by NASH LOGAN RN aware of high labs and HTN which has continued since stay.
[2016-12-16] VITALS (7 sets, daily range): BP systolic 139–151; BP diastolic 90–95; PULSE 91–115; RESP 16; O2SAT 96
--- NOTE | 2016-12-16 05:38 | NUR ---
Hypertension Pt BP at HS approx. 177/117; upon half-hour reassessment, diastolic decreased to 105 with no change in systolic pressure. HS medications administered; BP upon reassessment at 0030 was 139/96. Pt denies any discomfort, other VSS; tele ST 100s-120s.
[2016-12-16 06:04] LABS: BASOPHILS % (AUTO) 0.1 % (0-3); EOSINOPHILS % (AUTO) 0.3 % (0-5); MONOCYTES % (AUTO) 7.4 % (4-12); Mean Corpuscular Hemoglobin 31.2 pg (27.0-35.0); Mean Corpuscular Volume 89.7 fL (81-100); NEUTROPHILS % (AUTO) 79.5 % (40-74); Platelet Count 97 bil/L (150-400)
[2016-12-16] MEDS: Pantoprazole 40 mg ER24 Tablet PO SCH (09:40)
[2016-12-16] MEDS: Fluticasone-Salmeterol 500-50 Inhaler INHALATION SCH ×2 (09:42→21:12)
[2016-12-16] MEDS: Tiotropium 18mcg/Cap 5 Capsule Inhaler Kit INHALATION SCH (09:43)
[2016-12-16] MEDS: Fluticasone 0.05% 15 Spray/2 Gm 16 Gm Nasal Spray NASAL SCH (09:44)
--- NOTE | 2016-12-16 14:19 | PCM.PNMED ---
Subjective Date of Service Dec 16, 2016 Subjective She is seen today to follow-up her C. difficile colitis, new thrombocytopenia and chronic renal insufficiency. Dr. Lind is also following her and I have reviewed infectious disease notes today. The platelets have dropped slightly to 97. She is not on any heparin or enoxaparin. Exam Vital Signs Vital Sign - Last Date Time Temp Pulse Resp B/P Pulse Ox O2 Delivery O2 Flow Rate FiO2 12/16/16 08:27 104 12/16/16 08:03 16 139/95 96 Room Air 12/16/16 05:37 36.4 Intake and Output 12/15/16 12/15/16 12/16/16 Cumulative From/Thru 15:00 23:00 07:00 12/14/16 11:54 - 12/16/16 06:43 Intake Total 920 ml 600 ml 4520 ml Output Total 500 ml 1350 ml 3350 ml Balance 420 ml -750 ml 1170 ml Intake Oral 920 ml 600 ml 1520 ml IV Total 3000 ml Output Urine Total 500 ml 1350 ml 2450 ml Urine/Stool Mix 900 ml # Bowel Movements 0 1 Exam Alert and oriented X 3 NAD Heart: RRR without murmur Lungs: CTAB Abdomen: Not tender, soft Ext: No ankle edema IVs and Medications Medications Reviewed: Medications were reviewed in detail Lab and Diagnostics Result Diagram: 12/16/16 0535 12/16/16 0535 X-Rays, CTs and MRIs PROCEDURE: CT ABDOMEN AND PELVIS WITH CONTRAST (PNL-7102) INDICATIONS: abd pain TECHNIQUE: After the administration of intravenous contrast, 5 mm thick sections acquired from the diaphragm to the symphysis. 5 mm coronal and sagittal reformats were acquired. For radiation dose reduction, the following was used: automated exposure control, adjustment of mA and/or kV according to patient size. COMPARISON: [facility], CT, CT ABD PELVIS W CON, 01/04/2016, 17:15. FINDINGS: Image quality: Excellent. ABDOMEN: Lung bases: The visualized lung bases, there is a 4-5 mm left basilar pulmonary nodule on image 4. There is additional groundglass nodule adjacent to this measuring 5 mm. No acute consolidation or pleural effusion. There is scattered scarring/atelectasis Solid organs: Mild hepatic steatosis. Otherwise liver and spleen are normal in size and enhancement. Gallbladder grossly unremarkable. Biliary system is non dilated. Pancreas enhances normally. No adrenal nodules. Kidneys demonstrate normal size and enhancement, without hydronephrosis. Peritoneum and bowel: No free fluid or air. Scattered colonic diverticuli are present as before although no evidence of acute diverticulitis. The rectum is decompressed therefore unremarkable. Long segment transverse and descending colonic wall thickening. There is minimal if any adjacent inflammatory stranding. Nodes and vessels: No retroperitoneal or mesenteric adenopathy by size criteria. IVC unremarkable very mild 2.4 cm ectasia of the infrarenal abdominal aorta. There are scattered atheromatous calcifications. Miscellaneous: No ventral hernias. PELVIS: Genitourinary: Bladder wall thickness is normal. Miscellaneous: No inguinal hernias or adenopathy. Bones: No suspicious bony lesions. No vertebral body compression fractures. Mild anterior wedging of T11 is unchanged IMPRESSION: Long segment transverse and descending colon wall thickening, suggesting nonspecific colitis most likely infectious or inflammatory in nature (versus ischemic). Recommend clinical/laboratory correlation. Normal appendix. Scattered colonic diverticulosis without evidence of acute location. 5 mm pulmonary nodule in the left lung base. Recommend followup with noncontrast chest CT in 6 months to exclude early metastatic/malignant possibilities. Additional findings as above. Dictated by: Eulalio Hogan M.D. on 12/14/2016 at 14:33 Approved by: Eulalio Hogan M.D. on 12/14/2016 at 14:43 Assessment & Plan 71 year old female with history of hypertension, hyperlipidemia, COPD, asthma, mitral valve regurgitation, aortic stenosis, GERD, diverticulitis, and recurrent nausea and vomiting. acute, active C.Diff recurrent Colitis/Enteropathogenic Ecoli: CT abd showed diffuse colitis , possible infectious given recent c.diff although pt denied having constant diarrhea. last GI w/u- flex sig showed moderate diverticulosis in the sigmoid colon. There was a rather tortuous corner in the sigmoid colon. small erosion on a single fold near the transverse colon, later biopsy was negative for dysplasia or malignancy. -Dificid until WBC normalizes. Then Monoclonal AB Zinplava before or shortly after discharge. No diarrhea now. -Has not needed GI consult so far. Leykocytosis/Thrombocytopenia -Follow WBC and note 2 ab positive - Ecoli and Cdiff -Consider additional antibiotic coverage -No current symptoms to suggest ongoing colitis or systemic infection. -Not on Heparin or Enoxaparin -Follow Platelets hot flush, lightheadedness, POA, possibly medication reaction, ?morphine ?reglan , no signs of anaphylaxis, angioedema. This was also noted in previous admission , suspected pheochromocytoma, carcinoid, but serum metanephrine was negative. -observe for now, benadryl prn. -get freet4, TSH, metanephrine -consider CTH if lightheadedness continues HTN -Improved control with the addition of routine hydralazine and amlodipine yesterday -Continue metoprolol, amlodipine, losartan, hydralazine.. hypercalcemia, POA, will get PTH, vitD Hyperglycemia. -Follow blood sugars and check A1C. chronic, stable COPD, not active on exam, continue spiriva, symbicort and albuterol prn hyperlipidemia, continue zocor while monitoring LFT depression, continue celexa at lower dose diet:Regular Full code Pain Evaluation: Adequate Pain Control VTE Prophylaxis: Other (ambulation) VTE Mechanical Devices: Intermittant Pneumatic CD Resuscitation Status: CPR: Attempt Resuscitation Lenny Ragsdale MD Dec 16, 2016 09:52
--- NOTE | 2016-12-16 18:00 | NUR ---
BP/Fidaxomicin Fidaxomicin is not available from pharmacy today. They will be placing a special order and it should be here at sometime tomorrow, Dr Ragsdale paged with this information. Cardiac: Pt denies CP, Tele 90-120, up to 140 with activity. Tele DC'd this AM. BP better controlled this shift: 139-151/91-95 today. Resp: Pt denies SOB, SPO2 96% on RA GI/: Pt denies N/V/D/C. Diminished appetite. Neuro: Pt AOx3, able to MIKE, slight generalized weakness
--- NOTE | 2016-12-17 03:35 | NUR ---
CV; bp 151/93 at h.s. GI; no bms this shift. Contact precautions.
[2016-12-17 04:41] VITALS: BP 113/81; PULSE 109; RESP 16; O2SAT 97
[2016-12-17 05:59] LABS: Mean Corpuscular Hemoglobin 31.3 pg (27.0-35.0); Mean Corpuscular Volume 88.5 fL (81-100)
[2016-12-17] MEDS: Pantoprazole 40 mg ER24 Tablet PO SCH (07:45)
[2016-12-17] MEDS: Fluticasone-Salmeterol 500-50 Inhaler INHALATION SCH ×2 (10:15→19:55)
[2016-12-17] MEDS: Fluticasone 0.05% 15 Spray/2 Gm 16 Gm Nasal Spray NASAL SCH (10:15)
[2016-12-17] MEDS: Tiotropium 18mcg/Cap 5 Capsule Inhaler Kit INHALATION SCH (10:16)
[2016-12-17 10:21] VITALS: BP 131/85; PULSE 114; O2SAT 97
--- NOTE | 2016-12-17 10:24 | PCM.PNMED ---
Subjective Date of Service Dec 17, 2016 Subjective pt feeling better, but still no appetite, denied BM since admission, denied n/v no hot flushes, pt stated that she had blurry vision on the day of admission, felt scary but this was resolved. Exam Vital Signs Vital Sign - Last Date Time Temp Pulse Resp B/P Pulse Ox O2 Delivery O2 Flow Rate FiO2 12/17/16 04:41 36.9 109 16 113/81 97 Room Air Intake and Output 12/16/16 12/16/16 12/17/16 Cumulative From/Thru 15:00 23:00 07:00 12/14/16 11:54 - 12/17/16 05:17 Intake Total 1800 ml 440 ml 6760 ml Output Total 1400 ml 900 ml 5650 ml Balance 400 ml -460 ml 1110 ml Intake Oral 1800 ml 440 ml 3760 ml IV Total 3000 ml Output Urine Total 1400 ml 900 ml 4750 ml Urine/Stool Mix 900 ml # Bowel Movements 0 1 Exam acutely distressed due to n,v no JVD, MMM, no LAD RRR, nl s1, s2 no mrg CTAB, no w,c S,ND,NT,normoactive BS+ warm, no edema, pulses 2/2 IVs and Medications Medications Reviewed: Medications were reviewed in detail Lab and Diagnostics Result Diagram: 12/17/1652012/17/16520 X-Rays, CTs and MRIs PROCEDURE: CT ABDOMEN AND PELVIS WITH CONTRAST ([id number]) INDICATIONS: abd pain TECHNIQUE: After the administration of intravenous contrast, 5 mm thick sections acquired from the diaphragm to the symphysis. 5 mm coronal and sagittal reformats were acquired. For radiation dose reduction, the following was used: automated exposure control, adjustment of mA and/or kV according to patient size. COMPARISON: [facility], CT, CT ABD PELVIS W CON, 01/04/2016, 17:15. FINDINGS: Image quality: Excellent. ABDOMEN: Lung bases: The visualized lung bases, there is a 4-5 mm left basilar pulmonary nodule on image 4. There is additional groundglass nodule adjacent to this measuring 5 mm. No acute consolidation or pleural effusion. There is scattered scarring/atelectasis Solid organs: Mild hepatic steatosis. Otherwise liver and spleen are normal in size and enhancement. Gallbladder grossly unremarkable. Biliary system is non dilated. Pancreas enhances normally. No adrenal nodules. Kidneys demonstrate normal size and enhancement, without hydronephrosis. Peritoneum and bowel: No free fluid or air. Scattered colonic diverticuli are present as before although no evidence of acute diverticulitis. The rectum is decompressed therefore unremarkable. Long segment transverse and descending colonic wall thickening. There is minimal if any adjacent inflammatory stranding. Nodes and vessels: No retroperitoneal or mesenteric adenopathy by size criteria. IVC unremarkable very mild 2.4 cm ectasia of the infrarenal abdominal aorta. There are scattered atheromatous calcifications. Miscellaneous: No ventral hernias. PELVIS: Genitourinary: Bladder wall thickness is normal. Miscellaneous: No inguinal hernias or adenopathy. Bones: No suspicious bony lesions. No vertebral body compression fractures. Mild anterior wedging of T11 is unchanged IMPRESSION: Long segment transverse and descending colon wall thickening, suggesting nonspecific colitis most likely infectious or inflammatory in nature (versus ischemic). Recommend clinical/laboratory correlation. Normal appendix. Scattered colonic diverticulosis without evidence of acute location. 5 mm pulmonary nodule in the left lung base. Recommend followup with noncontrast chest CT in 6 months to exclude early metastatic/malignant possibilities. Additional findings as above. Dictated by: Eulalio Hogan M.D. on 12/14/2016 at 14:33 Approved by: Eulalio Hogan M.D. on 12/14/2016 at 14:43 Assessment & Plan 71 year old female with history of hypertension, hyperlipidemia, COPD, asthma, mitral valve regurgitation, aortic stenosis, GERD, diverticulitis, and recurrent nausea and vomiting. acute, active C.Diff recurrent Colitis/Enteropathogenic Ecoli: CT abd showed diffuse colitis , possible infectious given recent c.diff although pt denied having constant diarrhea. last GI w/u- flex sig showed moderate diverticulosis in the sigmoid colon. There was a rather tortuous corner in the sigmoid colon. small erosion on a single fold near the transverse colon, later biopsy was negative for dysplasia or malignancy.Stool PCR on admission again positive - EPEC and Cdiff. likely recurrent, 2nd episode. Dificid was started. -Dificid until WBC normalizes. Then Monoclonal AB Zinplava before or shortly after discharge. No diarrhea now. -Has not needed GI consult so far. -appreciate ID follow up Leykocytosis -trending down as infection clears up. follow WBC ZUHAIR, POA, likely prerenal, resolving with IVF, continue to monitor, HTN -Improved control with the addition of routine hydralazine and amlodipine -Continue metoprolol, amlodipine, losartan, hydralazine.. hypercalcemia, POA, PTH, vitD WNL Hyperglycemia. Follow blood sugars and check A1C. chronic, stable, resolved Hot flush,diaphoresis,lightheadedness, blurry vision, agitation, POA, these symptoms were observed in ED on admission, likely due to possible Serotonin syndrome likely features from zofran, pt received zofran 4-8mg at least 3- 4doses in short period of time. BP noted to be 200s, difficulty to control with labetalol. TSH/FT3 in WNL, serum metanephrine is pending. -Most of symptoms were resolved. BP is better controlled with oral agent now -will avoid zofran if possible COPD, not active on exam, continue spiriva, symbicort and albuterol prn hyperlipidemia, continue zocor while monitoring LFT depression, continue celexa at lower dose diet:Regular Full code dispo: likely tomorrow if pt remains stable. VTE Prophylaxis: Other (ambulation) VTE Mechanical Devices: Intermittant Pneumatic CD Resuscitation Status: CPR: Attempt Resuscitation Time spent 35min Murali Grubbs MD Dec 17, 2016 10:24
--- NOTE | 2016-12-17 10:52 | PROG NOTE ---
[address] [address] PROGRESS NOTE PATIENT: GEO VAZQUEZ I : 1945 MR#: [id number] ADMIT: 12/14/2016 JOB ID: [id number] DATE: 12/17/2016 REASON FOR FOLLOWUP: C. difficile colitis. INTERVAL HISTORY: Recall this is a woman I had seen back two days ago on December 15. At that time, she had developed a sudden onset of recurrent diarrhea, and she had a stool C. diff that was positive suggesting recurrence of her C. difficile colitis which had been treated earlier this year. Of interest, the patient reports that basically within 24 hours or so she was dramatically better with near-complete resolution of the symptoms. Today she continues on that positive course. She denies any fevers, chills, headache, confusion, cough, shortness of breath, nausea, vomiting, diarrhea, or dysuria. She has had her abdominal symptoms basically resolved in less than a day. PHYSICAL EXAMINATION: Reveals an afebrile woman temp 36.9, pulse 109, respiratory rate 16, blood pressure 113/81. She is saturating well on room air in no acute distress. Oral cavity negative. Lungs clear. Cardiac tones without new murmur. Abdomen benign. She has her right arm in a sling because of recent surgery. DIAGNOSTIC STUDIES: Labs include a white count which is still elevated at 14,000. Also of interest her platelet count is dropping it is now 61,000. Her creatinine is 1.2 which is much improved over 1.68 two days ago. LFTs were basically normal except an AST of 64. Urinalysis without white cells. Recall that we had negative blood cultures, but stool was positive for C. diff as well as enteral pathogenic E. coli. An abdominal CT scan showed colonic wall thickening. IMPRESSION: The initial thoughts here was that the patient had recurrent Clostridium difficile. What argues against this is the extremely rapid improvement, which started almost after she was admitted and she was dramatically better within 24 hours and is currently now asymptomatic. Whether or not this is a recurrence of Clostridium difficile or we just a majored or we just redemonstrated the persistence of Clostridium difficile by PCR in stool samples is unclear, but the patient has had gratifying improvement on fidaxomicin, and I would complete 10 days. I would say the patient is ready for discharge today except that her white count remains somewhat elevated at 14,000 and her platelets are dropping, which is always worrisome in terms of possibility of severe infection. She certainly does not look toxic, however. RECOMMENDATIONS: 1. I would continue with the fidaxomicin for a total course of 10 days. 2. Either would keep the patient overnight and recheck a CBC tomorrow or allow her to go home since she feels so well and strongly desires to go home, but with a definite plan to repeat a CBC within 48 hours of discharge. 3. I will continue to follow this patient while she remains here in the hospital.
--- NOTE | 2016-12-17 12:28 | NUR ---
Lost IV access When checking pt's PIV this a.m., I noticed that the IV site was bruised. Upon injection of NaCl flush, the site became puffy and pink and was cool to the touch. Pt stated she felt stinging at the site. Removed the infiltrated IV. Notified IV therapy because pt is a difficult IV start and we cannot use her right arm due to post-op shoulder surgery. Informed the hospitalist that pt's IV access had been lost. He agreed that it would be okay to not restart the IV as long as the pt's VS (especially BP and HR) remain stable. Pt will likely discharge tomorrow. Will continue to monitor pt's VS and watch for hemodynamic changes.
--- NOTE | 2016-12-17 12:42 | NUR ---
Social Work: Readiness for Discharge D: EMR reviewed. Pt is on day 3 of hospitalization. Per MD in AM multi-disciplinary rounds, pt is likely to discharge tomorrow, pending ID. Pt stated her spouse, Domingo Chu, will provide transport home via POV when pt is medically stable for discharge. SW does not anticipate any discharge needs at this time but will continue to follow if needs arise. A: Pt who is independent at baseline P: Pt stated her spouse, Domingo Chu, will provide transport home via POV when pt is medically stable for discharge. SW does not anticipate any discharge needs at this time but will continue to follow if needs arise - R/O IVABX SOLOMON Leahy
[2016-12-17 16:04] VITALS: BP 113/77; PULSE 101; RESP 16; O2SAT 97
[2016-12-17 19:25] VITALS: BP 130/84; PULSE 92; RESP 18; O2SAT 96
[2016-12-18 06:04] VITALS: BP 128/77; PULSE 90; RESP 18; O2SAT 97
[2016-12-18 06:23] LABS: BASOPHILS % (AUTO) 0.2 % (0-3); EOSINOPHILS % (AUTO) 1.4 % (0-5); MONOCYTES % (AUTO) 15.3 % (4-12); Mean Corpuscular Hemoglobin 31.2 pg (27.0-35.0); Mean Corpuscular Volume 89.4 fL (81-100); NEUTROPHILS % (AUTO) 55.4 % (40-74); Platelet Count 62 bil/L (150-400)
[2016-12-18 06:43] LABS: Magnesium 1.9 mg/dL (1.6-2.6); Phosphorus 3.9 mg/dL (2.5-4.9)
[2016-12-18] MEDS ORDERED: LOSA25TA21 PO (09:15)
[2016-12-18] MEDS ORDERED: METO25TA6 PO (09:15)
[2016-12-18] MEDS ORDERED: FIDA200T PO (09:15)
--- NOTE | 2016-12-18 09:20 | PCM.DIMED ---
Discharge Instructions Date of Service Dec 18, 2016 Dates of Hospitalization Dec 14, 2016 at 15:53 Discharge Diagnosis Discharge Diagnosis Recurrent c.diff colitis Medication Instructions Additional med instructions Please continue to take Dificid for 8more days Diet Discharge Diet: No restrictions Activity Discharge Activity: No restrictions Call your provider Call your provider for: Fever or Chills, Excessive diarrhea Patient Instructions Patient Instructions You were hospitalized with acute onset of diarrhea, nausea, vomiting. You had episode of flushes, excessive sweating, blurry vision, likely adverse effect from medicine. You were found to have recurrent infection of bowel infection. You were treated well with antibiotics. Please note that your blood pressure regimen was changed, follow instruction as above, check your blood pressure everyday Your kidney function seemed worse than baseline, please hydrate enough and repeat labs in the clinic in one week prior to visit with PCP Hugo follow up with your primary doctor in 1-2weeks It was recommended to repeat colonoscopy after infection clears up, especially if these symptoms happen again without signs of infection . Follow-up Provider: Cristy Mcclellan Follow-up with PCP in: 1 week Murali Grubbs MD Dec 18, 2016 09:20
[2016-12-18 09:23] VITALS: BP 117/79; PULSE 104; RESP 18; O2SAT 98
[2016-12-18] MEDS: Tiotropium 18mcg/Cap 5 Capsule Inhaler Kit INHALATION SCH (09:44)
[2016-12-18] MEDS: Fluticasone-Salmeterol 500-50 Inhaler INHALATION SCH (09:44)
[2016-12-18] MEDS: Fluticasone 0.05% 15 Spray/2 Gm 16 Gm Nasal Spray NASAL SCH (09:46)
--- NOTE | 2016-12-18 10:20 | NUR ---
Social Work- Discharge Data: EMR reviewed. Pt is on day 4 of hospitalization for colitis per H&P. Pt is medically stable for discharge, discharge orders are active. SW met with pt and at bedside regarding discharge plan. Pt's is agreeable and states that pt is ready to leave. Pt was asleep at time of this conversation. Pt's declined any questions or concerns related to discharge. Pt to discharge home with to transport via POV. No discharge needs identified. Assessment: Pt who is independent at baseline. Plan: Pt to discharge home with to transport via POV. No discharge needs identified. SOLOMON Christianson
--- NOTE | 2016-12-18 11:01 | PCM.DC.MED ---
Discharge Summary Date of Service Dec 18, 2016 Dates of Hospitalization Date of Hospital Admission Dec 14, 2016 at 15:53 Date of Discharge: Dec 18, 2016 Providers: Admitting Physician: Murali Denton MD Primary Care Physician: Cristy Mcclellan Attending Physician: Murali Denton MD Diagnosis at Time of Discharge Diagnosis at Time of Discharge acute dx Recurrent c.diff colitis probable CKD HTN, uncontrolled possible Serotonin syndrome due to zofran chronic dx COPD, hyperlipidemia, depression, Consultations Infectious disease Procedures XRay, CTs & MRIs PROCEDURE: CT ABDOMEN AND PELVIS WITH CONTRAST ([id number]) INDICATIONS: abd pain TECHNIQUE: After the administration of intravenous contrast, 5 mm thick sections acquired from the diaphragm to the symphysis. 5 mm coronal and sagittal reformats were acquired. For radiation dose reduction, the following was used: automated exposure control, adjustment of mA and/or kV according to patient size. COMPARISON: [facility], CT, CT ABD PELVIS W CON, 01/04/2016, 17:15. FINDINGS: Image quality: Excellent. ABDOMEN: Lung bases: The visualized lung bases, there is a 4-5 mm left basilar pulmonary nodule on image 4. There is additional groundglass nodule adjacent to this measuring 5 mm. No acute consolidation or pleural effusion. There is scattered scarring/atelectasis Solid organs: Mild hepatic steatosis. Otherwise liver and spleen are normal in size and enhancement. Gallbladder grossly unremarkable. Biliary system is non dilated. Pancreas enhances normally. No adrenal nodules. Kidneys demonstrate normal size and enhancement, without hydronephrosis. Peritoneum and bowel: No free fluid or air. Scattered colonic diverticuli are present as before although no evidence of acute diverticulitis. The rectum is decompressed therefore unremarkable. Long segment transverse and descending colonic wall thickening. There is minimal if any adjacent inflammatory stranding. Nodes and vessels: No retroperitoneal or mesenteric adenopathy by size criteria. IVC unremarkable very mild 2.4 cm ectasia of the infrarenal abdominal aorta. There are scattered atheromatous calcifications. Miscellaneous: No ventral hernias. PELVIS: Genitourinary: Bladder wall thickness is normal. Miscellaneous: No inguinal hernias or adenopathy. Bones: No suspicious bony lesions. No vertebral body compression fractures. Mild anterior wedging of T11 is unchanged IMPRESSION: Long segment transverse and descending colon wall thickening, suggesting nonspecific colitis most likely infectious or inflammatory in nature (versus ischemic). Recommend clinical/laboratory correlation. Normal appendix. Scattered colonic diverticulosis without evidence of acute location. 5 mm pulmonary nodule in the left lung base. Recommend followup with noncontrast chest CT in 6 months to exclude early metastatic/malignant possibilities. Additional findings as above. Dictated by: Eulalio Hogan M.D. on 12/14/2016 at 14:33 Approved by: Eulalio Hogan M.D. on 12/14/2016 at 14:43 Brief History HPI obtained by on 12/14 71 year old female with history of hypertension, hyperlipidemia, COPD, asthma, mitral valve regurgitation, aortic stenosis, GERD, diverticulitis, and recurrent nausea and vomiting of unclear etiology presented with acute onset nausea, vomiting, diaphoresis since last evening. Pt was recently hospitalized(-) with similar symptoms of abd pain, n,v, diarrhea. CT abd/pelvis 10/31 showed probable early distal colonic diverticulosis with mild surrounding inflammation, Thickening of the wall of the ascending and transverse colon. Based on CT findings, empirically started abx, later found to have c.diff. EPEC , pt was discharged with Flagyl to finish 14days. Of note, pt has hx of gastritis and colitis in the past, multiple EGD/colonoscopy failed to reveal any etiologies. GI was not consulted at this admission. Since pt is active retching, hx of partially obtained by her pt was USOH as per , having regular BM, eating well with good appetite, finished abx as scheduled. after having last night, pt started having nausea, vomiting throughout the night, pt also had multiple diarrhea, but pt thought it was from prune juice she took. pt denied travel, sick contacts, unsual food intake. pt denied cough, sputum, urinary complaints. ED VS hypertensive 200s, received 10mg labatalol iv but remained 190s, initially tachy to 130s but resolved with IVF to 90s, RR16, afebrile, 96% on RA , labs showed elevated WBC13.6. CMP grossly normal, lactate3.9, normalized with IVF, CT abd showed Long segment transverse and descending colon wall thickening , suggesting nonspecific colitis most likely infectious or inflammatory in nature (versus ischemic). During the interview in ED, pt looked markedly distressed with actively retching , no vomitus noted, noticed facial rash and upper back, stated that rash started since adm. pt c/o persistent nausea after zofran 4mg iv x4, c/o lightheadedness, hotness and coldness. Hospital Course 71 year old female with history of hypertension, hyperlipidemia, COPD, asthma, mitral valve regurgitation, aortic stenosis, GERD, diverticulitis, and recurrent nausea and vomiting. acute dx Intractable nausea, vomiting, diarrhea secondary to C.Diff recurrent Colitis/ Enteropathogenic Ecoli: Initially patient had constellation of GI symptoms without any bowel movement, diarrhea was only reported for 1 day, it was thought to be possible C. difficile or other GI pathology. However, CT abd showed diffuse colitis, more suggestive of infection. Stool PCR was positive for c.diff, EPEC. Patient was started on Dificid per ID, tolerated very well, it was thought that C.diff was recurrent from recent infection(treated with flagyl), symptoms were resolved, patient tolerated diet well, deemed safe for d/c. Plan is to continue Dificid for 8more days to finish 10days course. patient was advised to follow up with GI when this infection resolves, if pt becomes symptomatic again without signs of infection given multiple admissions with similar presentation.Last GI w/u- flex sig showed moderate diverticulosis in the sigmoid colon. There was a rather tortuous corner in the sigmoid colon. small erosion on a single fold near the transverse colon, later biopsy was negative for dysplasia or malignancy. pt may require elective colonoscopy. Leykocytosis, from c.diff infection, resolving on d/c elevated Cr, likely CKD at this point, unchanged 1.4-1.5, pt was encouraged to hydrate enough, repeat CMP in one week in the clinic with PCP HTN, uncontrolled but achieve target with metoprolol 50mg bid, [id number] bid , [id number].Patient was discharged on [id number] qd and same dose of amlodipine and metoprolol. possible Serotonin syndrome due to zofran pt showed hot flush,diaphoresis,lightheadedness, blurry vision, agitation on admission, likely due to possible Serotonin syndrome likely features from zofran , pt received zofran 4-8mg at least 3-4doses in short period of time. BP noted to be 200s, difficulty to control with labetalol. TSH/FT3 in WNL, serum metanephrine is pending. In the past, similar episode was also documented, suspected carcinoid or pheochromcytoma, follow up serum metapnephrine was negative. thyroid function was WNL. Repeat serum metapnephrine in progress. Patient was advised to avoid zofran in the future. chronic dx COPD, not active on exam, continue spiriva, symbicort and albuterol prn hyperlipidemia, continue zocor while monitoring LFT depression, continue celexa at lower dose Exam Vital Signs (Last) Date Time Temp Pulse Resp B/P Pulse Ox O2 Delivery O2 Flow Rate FiO2 12/18/16 09:23 36.5 104 18 117/79 98 Room Air Exam NAD, comfortably laying down on the bed no JVD, MMM, no LAD RRR, nl s1, s2 no mrg CTAB, no w,c S,ND,NT,normoactive BS+ warm, no edema, pulses 2/2 Test 12/14/16 12:10 12/14/16 14:41 12/15/16 12:00 12/18/16 05:34 Calcium (Send out) 10.4mg/dL (8.7-10.3) Lipase 32U/L (13-60) Vitamin D 25-Hydroxy 46.5ng/mL (30.0-100.0) Thyroid Stimulating Hormone (TSH) 3.620uIU/mL (0.450-4.500) Free Thyroxine 1.13ng/dL (0.82-1.77) Parathyroid Hormone Interpretation Comment (.) Total Intact Parathyroid Hormone 23pg/mL (15-65) Urine Color Straw (YELLOW) Urine Appearance Clear (CLEAR,HAZY) Urine pH 7.5 (5.0-8.0) Urine Specific [place] 1.015 (1.003-1.035) Urine Protein 100mg/dL (NEG,TRACE) Urine Glucose (UA) Negativemg/dL (NEGATIVE) Urine Ketones Negativemg/dL (NEGATIVE) Urine Occult Blood Trace (NEGATIVE) Urine Nitrite Negative (NEGATIVE) Urine Bilirubin Negative (NEGATIVE) Urine Urobilinogen Normalmg/dL (NORMAL) Urine Leukocyte Esterase Negative (NEGATIVE) Urine RBC 0-2/hpf (0-2) Urine WBC 0-5/hpf (0-5) Urine Epithelial Cells None/hpf (NONE-MOD) Urine Crystals None seen (NONE SEEN) Urine Bacteria None/hpf (NONE-FEW) Urine Hyaline Casts None/lpf (NONE) Urine Granular Casts None seen (NONE SEEN) Urine Waxy Casts None seen (NONE SEEN) Urine Red Blood Cell Casts None seen (NONE SEEN) Urine White Blood Cell Casts None seen (NONE SEEN) Urine Mucus None seen (None Seen) Urine Trichomonas None seen (NONE SEEN) Urine Yeast None (NONE SEEN) Urinalysis Comment None Urine Culture Reflexed Not indicated Urine Opiates Screen Negative Urine Methadone Screen Negative Urine Barbiturates Screen Negative Urine Amphetamines Screen Negative Urine Benzodiazepines Screen Negative Urine Cocaine Metabolite Screen Negative Urine Cannabinoids Screen Positive Hemoglobin A1c 6.0% (4.8-5.6) Lactic Acid Level 2.3mmol/L (0.4-2.0) White Blood Count 12.2th/mm3 (3.8-10.1) Red Blood Count 4.33mil/mm3 (3.90-5.20) Hemoglobin 13.5g/dL (12.0-15.6) Hematocrit 38.7% (35.0-46.0) Mean Corpuscular Volume 89.4fL (81-100) Mean Corpuscular Hemoglobin 31.2pg (27.0-35.0) Mean Corpuscular Hemoglobin Concent 34.9% (32.0-37.0) Red Cell Distribution Width 13.4% (12.3-15.4) Platelet Count 62bil/L (150-400) Neutrophils (%) (Auto) 55.4% (40-74) Lymphocytes (%) (Auto) 27.3% (14-46) Monocytes (%) (Auto) 15.3% (4-12) Eosinophils (%) (Auto) 1.4% (0-5) Basophils (%) (Auto) 0.2% (0-3) Sodium Level 132mEq/L (134-144) Potassium Level 3.6mEq/L (3.5-5.2) Chloride Level 94mEq/L (97-108) Carbon Dioxide Level 20mmol/L (18-29) Blood Urea Nitrogen 33mg/dL (8-27) Creatinine 1.54mg/dL (0.57-1.00) Estimat Glomerular Filtration Rate 48mL/min (>59) Glucose Level 112mg/dL (60-99) Calcium Level 9.7mg/dL (8.5-10.1) Phosphorus Level 3.9mg/dL (2.5-4.9) Magnesium Level 1.9mg/dL (1.6-2.6) Total Bilirubin 1.0mg/dL (0.0-1.2) Aspartate Amino Transf (AST/SGOT) 42U/L (0-50) Alanine Aminotransferase (ALT/SGPT) 36U/L (0-32) Alkaline Phosphatase 92U/L (25-165) Total Protein 6.8g/dL (6.4-8.4) Albumin 4.0g/dL (3.4-5.0) Procalcitonin 0.17ng/mL (0.00-0.08) Discharge Medications Discharge Medications Amlodipine (Amlodipine) 5 Mg Tablet 10 MG PO DAILY Prescribed by: MURALI DENTON MD Atorvastatin (Lipitor) 40 Mg Tablet 40 MG PO DAILY (Reported) Budesonide/Formoterol 160-4.5 mcg Inh (Symbicort 160-4.5 mcg Inh) 120 Puff Inhaler 2 PUFF INHALATION BID (Reported) Citalopram (Citalopram) 20 Mg Tablet 20 MG PO DAILY (Reported) Cyanocobalamin (Vitamin B-12) (Vitamin B12) 5,000 Mcg Tab.rapdis 5,000 MCG PO DAILY (Reported) Fidaxomicin (Dificid) 200 Mg Tablet 200 MG PO BID Prescribed by: MURALI DENTON MD Fluticasone Propionate (Fluticasone Propionate Nasal) 16 Gm [place].susp 2 SPRAY NS DAILY (Reported) Losartan Potassium (Losartan Potassium) 25 Mg Tablet 50 MG PO DAILY Prescribed by: MURALI DENTON MD Metoprolol Tartrate (Metoprolol Tartrate) 25 Mg Tablet 50 MG PO BID Prescribed by: MURALI DENTON MD Pantoprazole DR (Pantoprazole DR) 40 Mg Tablet.dr 40 MG PO DAILY (Reported) Tiotropium [place] (Spiriva) 18 Mcg Cap.w.dev 18 MCG IH DAILY (Reported) Ubidecarenone (Co Q-10) 100 Mg Capsule 100 MG PO DAILY (Reported) As needed Albuterol HFA (Proair HFA) 8.5 Gm Hfa.aer.ad 2 PUFFS INHALATION Q4-6H PRN PRN For Shortness of Breath (Reported) Albuterol Neb Soln (Albuterol Neb Soln) 2.5 Mg/3 Ml Vial.neb 2.5 MG IH Q4 PRN PRN For Shortness of Breath (Reported) Epinephrine (Epipen 2-Mu) 0.3 Mg/0.3 Ml Auto.injct 0.3 MG IM PRN For Anaphyllaxis (Reported) Additional med instructions Please continue to take Dificid for 8more days Followup Plan Disposition: Home Discharge Diet: No restrictions Discharge Activity: No restrictions Patient Instructions You were hospitalized with acute onset of diarrhea, nausea, vomiting. You had episode of flushes, excessive sweating, blurry vision, likely adverse effect from medicine. You were found to have recurrent infection of bowel infection. You were treated well with antibiotics. Please note that your blood pressure regimen was changed, follow instruction as above, check your blood pressure everyday Your kidney function seemed worse than baseline, please hydrate enough and repeat labs in the clinic in one week prior to visit with PCP Pleas follow up with your primary doctor in 1-2weeks It was recommended to repeat colonoscopy after infection clears up, especially if these symptoms happen again without signs of infection . Follow-up Provider: Cristy Mcclellan Follow-up with PCP in: 1 week Time spent 65 minutes Murali Denton MD Dec 18, 2016 11:01
[2016-12-18] MEDS ORDERED: AMLO5TAB2 PO (11:02)
--- NOTE | 2016-12-18 12:42 | NUR ---
Discharge Pt to discharge to home; A&Ox3, able to MIKE, amb ind in room, steady gait. Pt given all written and verbal instructions and states understanding. Pt encouraged to f/u with labs in 1 week and her PCP Cristy Mcclellan and has phone number to schedule appt. Care notes for C-Diff, Metoprolol, Losartan and Amlodipine given; pt encouraged to take Dificid for next 8 days; pt has hard copy of Rx's. All personal belongings with patient at time of discharge.
--- NOTE | 2016-12-18 14:15 | NUR ---
Dieudonne Pt called Re: Dieudonne medication to picker packer at her pharmacy and states "The medication is $5,000 at our pharmacy, I can't afford that. Is there something else the Dr could prescribe?" Took pt's information; paged Dr Grubbs Red Team to which he was going to call oncology social worker regarding the matter. Pt states using [facility] on [facility] in [facility].
== END 2016-12-18 12:50 | disposition home or self-care (01) | DRG 373 ==
LOC: SED 11:51 → OSC 15:53
PROVIDERS: ADMIT Internal Medicine; ATTEND Internal Medicine
DX: A04.7 Enterocolitis due to Clostridium difficile (principal); I12.9 Hypertensive chronic kidney disease with stage 1 through stage 4 chronic kidney disease, or unspecified chronic kidney disease; N18.9 Chronic kidney disease, unspecified; Z87.891 Personal history of nicotine dependence; J44.9 Chronic obstructive pulmonary disease, unspecified; E78.5 Hyperlipidemia, unspecified; F32.9 Major depressive disorder, single episode, unspecified; E83.52 Hypercalcemia; R73.9 Hyperglycemia, unspecified; B96.20 Unspecified Escherichia coli [E. coli] as the cause of diseases classified elsewhere; T45.0X5A Adverse effect of antiallergic and antiemetic drugs, initial encounter; R61 Generalized hyperhidrosis; R42 Dizziness and giddiness; H53.8 Other visual disturbances; R45.1 Restlessness and agitation

== ENCOUNTER 2017-01-11 10:23 | Inpatient (IN) | payer MEDICARE ==
[2017-01-11] VITALS (16 sets, daily range): BP systolic 167–211; BP diastolic 92–131; PULSE 82–121; RESP 16–24; O2SAT 94–98
[~2017-01-11] VITALS: Ht 152.4 cm; Wt 75.0 kg
[~2017-01-11 10:23] MED LIST changes: +AMLO5TAB2 PO; -CARV6.252 PO; +FIDA200T PO; -L.AC1CAP6 PO; +LOSA25TA21 PO; -METO10TA3 PO; +METO25TA6 PO; -METR500T PO; -ONDA4TAB9 PO
--- NOTE | 2017-01-11 10:36 | ED.REPORT ---
HPI-General Illness Date of Service Jan 11, 2017 ED Provider: Jeremiah Kiser MD A 71 year old female with a history of hypertension, hyperlipidemia, COPD, C. difficile, GERD and aortic stenosis presents to the ED complaining of hypertension and diarrhea. The pt began experiencing loose stools this morning, though she denies watery stools. When she took her blood pressure, she found it was high. The pt has been taking her blood pressure medications regularly and it has been normal until this morning. She denies hematochezia, black stools, fever, dysuria, back pain, headache, blurred vision, difficulty speaking, difficulty swallowing, chest pain, shortness of breath, weakness or tingling. The pt was recently admitted to the hospital and diagnosed with C. difficile. She was discharged on Dificid, which she finished approximately two weeks ago. Her last follow up appointment with her PCP was two weeks ago. Nursing Notes Stated Complaint: POSSIBLE HIGH BLOOD PRESSURE Chief Complaint: General Complaint Nursing Notes Reviewed: Yes Allergies: Coded Allergies: Penicillins (Verified Allergy, Severe, Anaphylaxis- OK WITH CEPHALOSPORINS , 12/14/16) codeine (Verified Adverse Reaction, Severe, Nausea,Vomiting, 12/14/16) promethazine (Verified Adverse Reaction, Unknown, Hallucinations, 12/14/16) Scheduled Atorvastatin (Lipitor) 40 Mg Tablet 40 MG PO DAILY Budesonide/Formoterol 160-4.5 mcg Inh (Symbicort 160-4.5 mcg Inh) 120 Puff Inhaler 2 PUFF INHALATION BID Citalopram (Citalopram) 20 Mg Tablet 20 MG PO DAILY Cyanocobalamin (Vitamin B-12) (Vitamin B12) 5,000 Mcg Tab.rapdis 5,000 MCG PO DAILY Fluticasone Propionate (Fluticasone Propionate Nasal) 16 Gm [place].susp 2 SPRAY NS DAILY Losartan Potassium (Losartan Potassium) 25 Mg Tablet 25 MG PO DAILY Pantoprazole DR (Pantoprazole DR) 40 Mg Tablet.dr 40 MG PO DAILY Tiotropium [place] (Spiriva) 18 Mcg Cap.w.dev 18 MCG IH DAILY Ubidecarenone (Co Q-10) 100 Mg Capsule 100 MG PO DAILY Scheduled PRN Albuterol HFA (Proair HFA) 8.5 Gm Hfa.aer.ad 2 PUFFS INHALATION Q4-6H PRN PRN For Shortness of Breath Albuterol Neb Soln (Albuterol Neb Soln) 2.5 Mg/3 Ml Vial.neb 2.5 MG IH Q4 PRN PRN For Shortness of Breath Epinephrine (Epipen 2-Mu) 0.3 Mg/0.3 Ml Auto.injct 0.3 MG IM PRN For Anaphyllaxis Ondansetron ODT (Zofran ODT) 4 Mg Tablet 4 MG PO Q4H PRN PRN For Nausea General Time Seen by MD: 10:31 Chief Complaint Other (Hypertension) Hx Obtained From: Patient Arrived By: Walk-in Sudden in Onset?: No Onset Occurred: 1 - 4 hours ago Symptom Duration: Since onset Recent Healthcare: Recent doctor visit, Recent hospitalization Similar Sx Previous: Yes Past Medical History Past Medical History Nausea and vomiting unclear etiology Hypertension Hyperlipidemia C. diff Depression COPD Diverticulitis GERD Asthma Mitral valve regurgitation Moderate-severe aortic stenosis Past Surgical History Bladder surgery Eye surgery R rotator cuff surgery October 2016 Denies ABD surgeries Family History Noncontributory Smoking History Former Smoker Social History Alcohol Use: 1-3 per week Drug Use: Denies drug use Other Social History: Good social support, , Local resident Ambulatory Status Independent Review of Systems hypertension denies black stools denies difficulty speaking denies difficulty swallowing denies weakness or tingling Full Review of Systems Constitutional: Denies: Fever Eyes: Denies: Blurred bilateral Respiratory: Denies: Non-productive cough, Shortness of breath Cardiovascular: Denies: Chest pain GI: Reports: Diarrhea ("loose stool"), Denies: Hematochezia Female: Denies: Dysuria Musculoskeletal: Denies: Back pain, Neck pain Skin: Denies Rash Neurologic: Denies: Headache Complete sys rev & neg: except as marked. Physical Exam Vital Signs Vital Signs Date Time Temp Pulse Resp B/P Pulse Ox O2 Delivery O2 Flow Rate FiO2 01/11/17 10:26 36.9 99 18 197/124 96 Room Air Initial VS: Reviewed General/Constitutional: Awake, Alert Head / Eyes: Atraumatic, Normocephalic, PERRL, EOMI ENT: Atraumatic, Airway patent, Mucous membranes moist Neck: Atraumatic, Supple, Full range of motion Respiratory / Chest: Atraumatic, Breath sounds NL, Breath sounds = bilat, No respiratory distress Cardiovascular: Heart rate NL, Regular rhythm holosystolic murmur, left upper sternal border Abdomen: Atraumatic, Soft, Non-tender Back: Atraumatic, Full range of motion Upper Extremities Upper Extremity / MS: Atraumatic, Full range of motion Lower Extremity / Pelvis / MS: Atraumatic, Full range of motion, No edema Skin: Atraumatic, Color NL, No rash, Warm, Dry Neurologic: Oriented X3, Speech NL, No motor deficits, No sensory deficits, CN II - XII intact Psychiatric: Affect NL, Mood NL Interpretation & Diagnostics Lab Results Interpretation Result Diagram: 01/11/17 1150 01/11/17 1150 Test 01/11/17 11:50 White Blood Count 12.3th/mm3 (3.8-10.1) Red Blood Count 3.94mil/mm3 (3.90-5.20) Hemoglobin 12.3g/dL (12.0-15.6) Hematocrit 37.2% (35.0-46.0) Mean Corpuscular Volume 94.4fL (81-100) Mean Corpuscular Hemoglobin 31.2pg (27.0-35.0) Mean Corpuscular Hemoglobin Concent 33.1% (32.0-37.0) Red Cell Distribution Width 13.1% (12.3-15.4) Platelet Count 261bil/L (150-400) Neutrophils (%) (Auto) 74.2% (40-74) Lymphocytes (%) (Auto) 14.1% (14-46) Monocytes (%) (Auto) 7.5% (4-12) Eosinophils (%) (Auto) 3.8% (0-5) Basophils (%) (Auto) 0.2% (0-3) Sodium Level 138mEq/L (134-144) Potassium Level 4.2mEq/L (3.5-5.2) Chloride Level 101mEq/L (97-108) Carbon Dioxide Level 20mmol/L (18-29) Blood Urea Nitrogen 18mg/dL (8-27) Creatinine 0.96mg/dL (0.57-1.00) Estimat Glomerular Filtration Rate 82mL/min (>59) Glucose Level 130mg/dL (60-99) Calcium Level 9.7mg/dL (8.5-10.1) Magnesium Level 2.0mg/dL (1.6-2.6) Total Bilirubin 0.3mg/dL (0.0-1.2) Aspartate Amino Transf (AST/SGOT) 21U/L (0-50) Alanine Aminotransferase (ALT/SGPT) 16U/L (0-32) Alkaline Phosphatase 117U/L (25-165) Troponin T < 0.010ug/L (0.0-0.011) Total Protein 7.5g/dL (6.4-8.4) Albumin 4.2g/dL (3.4-5.0) Procalcitonin 0.05ng/mL (0.00-0.08) ECG Interpretation ECG Interpretation: normal sinus rhythm with a rate of 91 probable left atrial enlargement low voltage, extremity and precordial leads Time: 11:26 Interpreted by: ED physician X-Ray Chest Interpretation Chest Xray Interpretation: IMPRESSION: 1. No acute cardiopulmonary disease. Dictated by: Maxim Valadez M.D. on 01/11/2017 at 11:24 Approved by: Maxim Valadez M.D. on 01/11/2017 at 11:26 Interpretation / Wet Read by: Interpret - Radiologist Re-Eval/Medical Decision Med Decision/Clinical Course 71-year-old female recently admission for C. difficile colitis completed a ten-day course of deficit presenting with nausea vomiting diarrhea 1 day and elevated blood pressures. Her systolic blood pressures were in the low 200s and low 90s on arrival. She was given multiple doses of labetalol with improvement. Her nausea and vomiting persisted. She requested admission. I discussed with infectious disease Dr. Lind who recommended oral vancomycin. Patient was admitted for possible recurrence of her C. difficile colitis, hypertensive urgency versus emergency. Source of Hx: Old records Time of Eval: 13:19 Patient Status: Condition improved Re-Evaluation/Progress Note: Pt rechecked, who is resting. The diagnosis and plan for discharge are discussed. The pt understands and agrees with the plan. Time of Eval: 15:40 Re-Evaluation/Progress Note: Pt rechecked, who is now experiencing cramping abdominal pain, nausea and one episode of vomiting. She is requesting admission at this time. The plan for admission is discussed. The pt understands and agrees with the plan. All questions are addressed at this time. Consultation #1: Referral / Consult Name: Mando Lind MD Call Returned at: 13:15 Core Cleaner: Agrees with eval, Agrees with plan Note: Consulted with Dr. Lind, infectious disease specialist, regarding pt's case. Dr. Lind recommends discharge with close follow up. He does not recommend C. difficile treatment at this time given the the pt is not febrile and is not experiencing watery diarrhea. Consultation #2: Referral / Consult Name: Mando Lind MD Call Returned at: 16:09 Core Cleaner: Agrees with eval, Agrees with plan Note: Consulted with Dr. Lind regarding pt's current condition. He recommends treatment for C. difficile given pt's vomiting. Consultation #3: Referral / Consult Name: Delaney Pascual DO Consulted With: Hospitalist Call Returned at: 16:13 Core Cleaner: Agrees with eval, Agrees with plan, Accepts admit Note: Spoke with Dr. Pascual, hospitalist, regarding pt's case. Dr. Pascual agrees with the evaluation and agrees to admit the pt. Counseled Regarding: Diagnosis, Lab results, Need for admission Discharge & Departure Primary Impression: C. difficile colitis Additional Impression: Hypertension Hypertension type: essential hypertension Qualified Code: I10 - Essential ( primary) hypertension Disposition: ADMITTED TO HOSPITAL Discharge Condition All VS Reviewed: Yes Condition: Stable Referrals: Cristy Mcclellan (PCP) Scribe Attestation Portions of this note were transcribed by Kath Zelaya. I, Dr. Kiser personally performed the history, physical exam and medical decision-making; I reviewed and confirmed the accuracy of the information in the transcribed note. copies to: Cristy Mcclellan Ben M MD Jan 11, 2017 10:36 KATH ZELAYA Jan 11, 2017 10:43
[2017-01-11] MEDS ORDERED: Labetalol 5 mg/mL 4 mL Inj IVPUSH ONE ×2 (10:45→13:25)
--- NOTE | 2017-01-11 11:28 | DRSVH ---
PROCEDURE: X-RAY CHEST ONE VIEW, PORTABLE ([id number]) INDICATIONS: chest pain TECHNIQUE: One view of the chest was acquired. COMPARISON: [facility], , CHEST 1VW (PORTABLE), 11/29/2014, 14:37. FINDINGS: Surgical changes and devices: None. Lungs and pleura: No pleural effusions or pneumothorax. Lungs are clear. Mediastinum: Mediastinal contours appear normal. Heart size is normal. Bones and chest wall: No suspicious bony lesions. Overlying soft tissues appear unremarkable. IMPRESSION: 1. No acute cardiopulmonary disease. Dictated by: Maxim Valadez M.D. on 01/11/2017 at 11:24 Approved by: Maxim Valadez M.D. on 01/11/2017 at 11:26
[2017-01-11 12:03] LABS: BASOPHILS % (AUTO) 0.2 % (0-3); EOSINOPHILS % (AUTO) 3.8 % (0-5); MONOCYTES % (AUTO) 7.5 % (4-12); Mean Corpuscular Hemoglobin 31.2 pg (27.0-35.0); Mean Corpuscular Volume 94.4 fL (81-100); NEUTROPHILS % (AUTO) 74.2 % (40-74); Platelet Count 261 bil/L (150-400)
[2017-01-11 12:54] LABS: TROPONIN T < 0.010 ug/L (0.0-0.011)
[2017-01-11] MEDS ORDERED: Ondansetron 2 mg/mL 2 mL Inj IVPUSH ONE (13:25)
[2017-01-11] MEDS ORDERED: Labetalol 5 mg/mL 20 mL Inj IV ONE (13:50)
[2017-01-11] MEDS ORDERED: ONDA4TAB9 PO (15:14)
[2017-01-11] MEDS ORDERED: MetoCLOpramide 5 mg/mL 2 mL Inj IVPUSH ONE (15:50)
[2017-01-11] MEDS ORDERED: 0.9% Sodium Chloride 1,000 ML IV ONE ×2 (15:55→18:30)
[2017-01-11] MEDS ORDERED: Vancomycin 100 mg/mL Oral Solution PO ONE (16:10)
[2017-01-11] MEDS ORDERED: Alum-Mag Hydrox-Simeth 30 mL Suspension PO PRN ×2 (16:15→16:40)
[2017-01-11] MEDS ORDERED: Ondansetron 2 mg/mL 2 mL Inj IVPUSH PRN (16:15)
[2017-01-11] MEDS ORDERED: LOSA25TA21 PO (16:27)
[2017-01-11] MEDS ORDERED: Polyethylene Glycol (PEG) 17 Gm Powder PO PRN (16:40)
[2017-01-11] MEDS: 0.9% Sodium Chloride 1,000 ML IV SCH ×2 (17:30→20:00)
--- NOTE | 2017-01-11 18:12 | PCM.HPMED ---
Subjective Date of Service Jan 11, 2017 Primary Provider: Admitting Physician: Delaney Pascual DO Primary Care Physician: Cristy Mcclellan Attending Physician: Delaney Pascual DO Chief Complaint: Diarrhea and general malaise History of Present Illness: 71-year-old female with a recent admission for recurrent C. difficile infection was treated with a ten-day course of Fidaxomicin, hypertension, COPD, GERD, and aortic stenosis present emergency department due to continued loose stools, although she does not classified as diarrhea, and general sense of malaise that began this morning. When the patient presented to the emergency department her blood pressure was noted to be in the 200s. She states that her stools have not returned to normal since her last admission and she is suffering from bloating, nausea, vomiting 1, and chills. However she denies fever, hematochezia or hematemesis, or chest pain, shortness of breath. She denies additional neurological symptoms. Patient states that she completed the full course of Fidaxomicin and her symptoms have mostly abated with the exception of her stool still been loose. On interview for admission the patient was not very cooperative and her answers most of the questions. Emergency department chest x-ray was unremarkable, she had a small leukocytosis , and glucose was mildly elevated. Repeat stool PCR shows C. difficile which may be left over from previous admission, and enteropathic Escherichia coli which was present on her exam at the end of November. Review of Systems: Complete review of systems performed; pertinent positives and negatives per history of present illness, all other systems reviewed and are negative Allergies Coded Allergies: Penicillins (Verified Allergy, Severe, Anaphylaxis- OK WITH CEPHALOSPORINS , 12/14/16) codeine (Verified Adverse Reaction, Severe, Nausea,Vomiting, 12/14/16) promethazine (Verified Adverse Reaction, Unknown, Hallucinations, 12/14/16) Home Medications Atorvastatin (Lipitor) 40 Mg Tablet 40 MG PO DAILY Budesonide/Formoterol 160-4.5 mcg Inh (Symbicort 160-4.5 mcg Inh) 120 Puff Inhaler 2 PUFF INHALATION BID Citalopram (Citalopram) 20 Mg Tablet 20 MG PO DAILY Cyanocobalamin (Vitamin B-12) (Vitamin B12) 5,000 Mcg Tab.rapdis 5,000 MCG PO DAILY Fluticasone Propionate (Fluticasone Propionate Nasal) 16 Gm [place].susp 2 SPRAY NS DAILY Losartan Potassium (Losartan Potassium) 25 Mg Tablet 25 MG PO DAILY Pantoprazole DR (Pantoprazole DR) 40 Mg Tablet.dr 40 MG PO DAILY Tiotropium [place] (Spiriva) 18 Mcg Cap.w.dev 18 MCG IH DAILY Ubidecarenone (Co Q-10) 100 Mg Capsule 100 MG PO DAILY Albuterol HFA (Proair HFA) 8.5 Gm Hfa.aer.ad 2 PUFFS INHALATION Q4-6H PRN PRN For Shortness of Breath Albuterol Neb Soln (Albuterol Neb Soln) 2.5 Mg/3 Ml Vial.neb 2.5 MG IH Q4 PRN PRN For Shortness of Breath Epinephrine (Epipen 2-Mu) 0.3 Mg/0.3 Ml Auto.injct 0.3 MG IM PRN For Anaphyllaxis Ondansetron ODT (Zofran ODT) 4 Mg Tablet 4 MG PO Q4H PRN PRN For Nausea PMH Nausea and vomiting unclear etiology Hypertension Hyperlipidemia Recent C. diff treated with fidaximicin Depression COPD Diverticulitis GERD Asthma Mitral valve regurgitation Moderate-severe aortic stenosis Surgical History Bladder surgery Eye surgery R rotator cuff surgery October 2016 Denies ABD surgeries Family History Lung disease on her father's side, but her father and mother both lived into their 90s. Social History Hx Alcohol Use: Yes (occassionally ) Hx Substance Use: No Hx Tobacco Use: No (quit 40 years ago) Smoking Status: Former Smoker Exam Vital Signs Vital Sign - Last Date Time Temp Pulse Resp B/P Pulse Ox O2 Delivery O2 Flow Rate FiO2 01/11/17 17:00 82 18 198/110 98 Room Air 01/11/17 10:26 36.9 Exam General: Sickly age-appropriate female; not overly cooperative HEENT: She do not wish to be examined Lymph: She do not wish to be examined Cardio: Regular rate and rhythm no murmurs rubs or gallops Respiratory: CTA bilaterally, no wheezes, no crackles Abdomen: +bs but otherwise defers exam Extremities: No edema, sensation intact Psych: uncooperative Neuro: sensation intact throughout Skin: No rash Lab and Diagnostics Result Diagram: 01/11/17 1150 01/11/17 1150 X-Rays, CTs and MRIs Chest x-ray 1. No acute cardiopulmonary disease. Dictated by: Maxim Valadez M.D. on 01/11/2017 at 11:24 12-lead ECG Normal sinus rhythm with no ST elevations; rate around 90 Assessment & Plan 71-year-old female whose suffered from recurrent C. difficile infection most recently treated with a ten-day course of Fidaxomicin which was finished 2 weeks ago presents emergency department with ongoing loose stools and new general malaise and fatigue. Patient wishes to be admitted. Persistent/recurrent C. difficile infection; present on admission; ongoing -This would be the third time the patient has had C. difficile this year -Previously treated with Flagyl and most recently Fidaxomicin -Mild leukocytosis without meeting septic criteria -Vancomycin by mouth 4 times a day -Stool PCR resulted previous infections -Fluids, 2 L normal saline and maintenance 125ml/hr -Consider ID consult for persistent C. difficile Hypertensive urgency; present on admission; ongoing -Likely due to not been able to take medications orally as well as infection and pain -Possibly playing a part in her malaise -Morphine for pain -Restart home medications -Labetalol 20 mg IV for SBP greater than 180 -If labetalol does not work; have enalapril/Vasotec on order Depression-continue home meds Asthma-continue home inhalers COPD-continue home inhalers Hyperlipidemia-continue statin Disposition: Patient has been admitted to the general medical floor under observation Full code Pain Evaluation: Adequate Pain Control VTE Prophylaxis: Sub-Q Heparin (Unfractionated) Resuscitation Status: CPR: Attempt Resuscitation Time spent 45 min Attending Statement Seen and examined the patient at 8 PM. Nitroglycerin paste was applied, Ativan 0.5 mg IV was given, labetalol 20 mg was administered in the room. Patient's blood pressures are slow to improve. Patient is transferred to [facility] for closer monitoring on telemetry Gave sign out [facility] hospitalist. Agree with the rest of the plan and management as above Caden Quinones DO Jan 11, 2017 18:12 Delaney Pascual DO Jan 12, 2017 00:57
[2017-01-11] MEDS: Ondansetron 2 mg/mL 2 mL Inj IVPUSH PRN ×2 (18:17→22:30)
[2017-01-11] MEDS ORDERED: Albuterol 2.5 mg/3 mL Inhalation Solution NEB PRN (18:41)
[2017-01-11] MEDS ORDERED: Labetalol 5 mg/mL 20 mL Inj IV PRN (18:51)
--- NOTE | 2017-01-11 18:54 | NUR ---
Admit Pt. admitted to [facility] at 1700. BP noted to be 198/110, unchanged from ED measurements. NS currently running at 125/hr. Pt. denies chest pain, SOB. AOX3, MIKE. Equal strength bilat. Has L shoulder sling d/t recent rotator cuff surgery. Pt. c/o nausea. Not vomiting at this time. IV zofran administered. Will continue to monitor. Pt. has been having diarrhea. c-diff positive. Enteric precautions initiated. Pt. is very passive and appears to be pale, slightly diaphoretic and states "I feel terrible". No skin issues noted on assessment. Admit and med rec already completed in ED. Pt. educated on falls policy and call light.
[2017-01-11] MEDS: Labetalol 5 mg/mL 20 mL Inj IV PRN (20:00)
[2017-01-11] MEDS ORDERED: Nitroglycerin 2% 1 Gm Ointment TOPICAL SCH (20:30)
[2017-01-11] MEDS: Vancomycin 100 mg/mL Oral Solution PO SCH (20:59)
[2017-01-11] MEDS: Fluticasone-Salmeterol 500-50 Inhaler INHALATION SCH (20:59)
--- NOTE | 2017-01-11 23:20 | NUR ---
Transfer PT was transferred to the care of Alan RN on [facility] due to elevated B/P. 20mg of labetolol, .5 ativan and 1/2 inch nitro paste was given with minimal effects on pt's hypertension. PT placed on tele upon receiving her at shift change. PT remains nauseous and also reports anxiety r/t being back in the hospital for the "same thing." PT is a 1 person assist to the BR due to generalized weakness. PT is a bit diaphoretic and pale in appearance. Pt taken to [facility] around 2129 for continued care.
[2017-01-12] VITALS (14 sets, daily range): BP systolic 71–193; BP diastolic 47–149; PULSE 98–122; RESP 16–22; O2SAT 94–99
[2017-01-12] MEDS: Heparin 5,000 Unit/mL Inj SUBQ SCH ×3 (00:09→16:09)
--- NOTE | 2017-01-12 01:01 | PCM.PNMED ---
Subjective Date of Service Jan 12, 2017 Subjective Nurse by nurse patient had seizure episode. No Ativan given and resolved spontaneously. Plan: Ativan IV PRN for seizure ordered Seizure precaution day team decide on EEG or imaging studies Duy Springer MD Jan 12, 2017 01:01
[2017-01-12] MEDS ORDERED: NitroPRUSSIDE Inj 50,000 MCG in Dextrose 5% 248 ML IV SCH (01:20)
--- NOTE | 2017-01-12 01:54 | NUR ---
Seizure/ Transfer Pt arrived to [facility] around 2149 BP in the 190's per report labetalol given with no effect. Vasotec given and BP after 1 hour 167/98. Pt BP continued to range between 137 to 199 systolic and 90's to 115's diastolic. Around 0030 Pt requesting to be cleaned up as she felt as though she needed changing. Pt able to turn from side to side to help with changing. Approximately 0050 pt unable to turn self and began having a seizure. Pt placed on side and O2 started, notified. Pt seizure lasted until 0110 and BP began to decrease 71/47, notified and orders to transfer to CCU given. Report give to Alanna Fontaine and pt transferred in stable condition.
[2017-01-12] MEDS: Vancomycin 100 mg/mL Oral Solution PO SCH ×4 (02:42→20:24)
[2017-01-12 04:27] LABS: BASOPHILS % (AUTO) 0.1 % (0-3); EOSINOPHILS % (AUTO) 0 % (0-5); MONOCYTES % (AUTO) 8.2 % (4-12); Mean Corpuscular Hemoglobin 31.6 pg (27.0-35.0); Mean Corpuscular Volume 91.9 fL (81-100); NEUTROPHILS % (AUTO) 85.4 % (40-74); Platelet Count 247 bil/L (150-400)
--- NOTE | 2017-01-12 05:33 | NUR ---
P) Seizure/Cardiac/fever Pt. transferred to CCU at approx. 0145, appeared post ictal initially, speech slightly slurred, very drowsy, shortly speech cleared but she was notable to recall what had happened. Cardiac rhythm sinus/sinus tach, 90-110, hypertensive with diastolic BP generally in the 90's, systolics always <180 and MAP's < 120 so nipride gtt. on hold. Pt. was febrile after seizure activity, T-max 37.8c axillary. I) Meds per 's orders, discussed MAP with Dr. eason who recommended holding off on nipride unless MAP's were > 120. E) Pt. resting comfortably but unable to void in bedpan, has tried x2 without result, if no result after 3rd try will try to bladder scan and possibly insert pendleton.
[2017-01-12] MEDS: Fluticasone-Salmeterol 500-50 Inhaler INHALATION SCH ×2 (08:27→20:24)
[2017-01-12] MEDS: Fluticasone 0.05% 15 Spray/2 Gm 16 Gm Nasal Spray NASAL SCH (08:27)
[2017-01-12] MEDS: Labetalol 5 mg/mL 20 mL Inj IV PRN (08:33)
--- NOTE | 2017-01-12 10:38 | DRSVH ---
PROCEDURE: CT BRAIN WITHOUT CONTRAST ([id number]) INDICATIONS: SEIZURE TECHNIQUE: Noncontrast 4.5 mm thick angled axial sections acquired from the foramen magnum to the vertex, with c oronal reformats. COMPARISON: [facility], CT, BRAIN W/O CONTRAST, 11/14/2014, 16:40. FINDINGS: Image quality: Excellent. CSF spaces: Basal cisterns are patent. No extra-axial fluid collections. The ventricles are symmet estelle in size and shape. Brain: No intracranial bleeds or masses. There is cerebral volume loss for age, with resultant vent ricular and sulcal prominence. There are periventricular and deep white matter chronic small vessel ischemic changes. There is intracranial internal carotid artery atherosclerosis. Skull and face: Calvarium and visualized facial bones appear intact, without suspicious lesions. Sinuses: There is mild bilateral maxillary sinus disease. IMPRESSION: No acute intracranial process. Dictated by: Eulalio Hogan M.D. on 01/12/2017 at 10:29 Approved by: Eulalio Hogan M.D. on 01/12/2017 at 10:35
[2017-01-12] MEDS: Tiotropium 18mcg/Cap 5 Capsule Inhaler Kit INHALATION SCH (12:15)
--- NOTE | 2017-01-12 14:40 | NUR ---
Elevated BP/headache/CT Elevated SBP this morning and greater than 180 X3 MD aware and increased dose of Cozaar to 50mg given this morning and started the patient on Norvasc 5mg PO daily-meds were given this morning. Patient was also given a PRN dose of Labetalol 20mg IV. SBP decreased to 130-160 ranges with DBP 70s-90- MD aware. At the time patients BP was elevated she stated having a headache 2-3/. After BP became controlled her pain resolved. Patient was offered pain medication but she declined. Please refer to CCU flow sheet for vitals/documentation. CT of the head was completed this morning- please see results in EMR- MD aware- continue assessment.
--- NOTE | 2017-01-12 15:19 | NUR ---
Inpatient status from day of admit, FRANCISCO signed today
--- NOTE | 2017-01-12 16:22 | PCM.PNMED ---
Subjective Date of Service Jan 12, 2017 Subjective 71-year-old female with a recent admission for recurrent C. difficile infection treated with a ten-day course of Fidaxomicin, hypertension, COPD, GERD, and aortic stenosis present emergency department due to continued loose stools, hypertensive urgency and seizure. States she feels much better today. She has had no further diarrhea today. Mild abdominal discomfort. No headache chest pain or dyspnea. States she has been suspected of having seizures in the past but no clear diagnosis. Exam Vital Signs Vital Sign - Last Date Time Temp Pulse Resp B/P Pulse Ox O2 Delivery O2 Flow Rate FiO2 01/12/17 12:05 Supplement Oxygen 01/12/17 12:05 37.1 112 20 147/75 98 3.00 Intake and Output 01/11/17 01/11/17 01/12/17 Cumulative From/Thru 15:00 23:00 07:00 01/11/17 10:26 - 01/12/17 06:23 Intake Total 981 ml 981 ml Output Total 400 ml 400 ml Balance 581 ml 581 ml Intake Oral 100 ml 100 ml IV Total 881 ml 881 ml Output Urine Total 400 ml 400 ml # Bowel Movements 1 1 Exam General: Healthy-appearing elderly woman, no acute distress HEENT: sclerae anicteric, oral mucosa moist Neck: no JVD Chest: clear to auscultation; right arm in sling due to rotator cuff surgery Cardiac: S1S2, no murmur Abdomen: BS normal, non-tender, nondistended Extremities: No pedal edema Neuro: A&O, cranial nerves symmetric, motor strength 5/5, coordination normal IVs and Medications Medications Reviewed: Medications were reviewed in detail Lab and Diagnostics Result Diagram: 01/12/17 0358 01/12/17 0358 X-Rays, CTs and MRIs Chest x-ray 1. No acute cardiopulmonary disease. Dictated by: Maxim Valadez M.D. on 01/11/2017 at 11:24 12-lead ECG Normal sinus rhythm with no ST elevations; rate around 90 Assessment & Plan 71-year-old female whose suffered from recurrent C. difficile infection most recently treated with a ten-day course of Fidaxomicin which was finished 2 weeks ago presents emergency department with ongoing loose stools and new general malaise and fatigue. Patient wishes to be admitted. Persistent diarrhea; present on admission; ongoing. C. difficile PCR remains positive despite recent treatment with highly effective therapy. Current enteric pathogen PCR panel also reveals enteropathogenic Escherichia coli. Diarrhea 2 days improved compared to baseline. This does not suggest significant new infection or relapse C. difficile - Continue Vancomycin by mouth 4 times a day at present but likely discontinue if no persistent significant diarrhea and abdominal pain on 01/13 - Enteropathogenic Escherichia coli does not warrant antibiotic treatment unless copious watery diarrhea - Advance diet to encourage fluid intake - Plan follow-up with GI service in light of multiple admissions for diarrhea this year with persistent loose stool pattern, not all related to C. difficile Hypertensive urgency; present on admission; ongoing -Increased dose of losartan, add calcium channel bakari which also may slow bowels -Labetalol 20 mg IV for SBP greater than 180 Seizure disorder, not present on admission. 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 This was exacerbated by hypertensive urgency - Load Keppra - Order EEG, likely Depression-continue home meds Asthma-continue home inhalers COPD-continue home inhalers Hyperlipidemia-continue statin Disposition: Patient has been admitted to the general medical floor under observation Full code Pain Evaluation: Adequate Pain Control VTE Prophylaxis: Sub-Q Heparin (Unfractionated) VTE Mechanical Devices: Intermittant Pneumatic CD Resuscitation Status: CPR: Attempt Resuscitation Time spent 35 minutes Irineo Milian MD Jan 12, 2017 16:22
[2017-01-12] MEDS: levETIRAcetam 500 mg Tablet PO SCH (20:24)
[2017-01-13] VITALS (7 sets, daily range): BP systolic 138–161; BP diastolic 75–100; PULSE 65–109; RESP 17–18; O2SAT 96–99
[2017-01-13] MEDS: Labetalol 5 mg/mL 20 mL Inj IV PRN ×2 (00:04→05:03)
[2017-01-13] MEDS: Heparin 5,000 Unit/mL Inj SUBQ SCH ×3 (00:56→16:05)
[2017-01-13] MEDS: Vancomycin 250 mg Oral Capsule PO SCH ×3 (04:23→15:19)
--- NOTE | 2017-01-13 05:33 | NUR ---
Medications/BP Patient receiving PO vancomycin for C-diff; has a difficult time taking the solution due to bad taste. Discussed with pharmacy and changed patient to PO capsule form. Patient able to take subsequent dose without gagging. Patient hypertensive into the 180s systolic intermittently. IV labetalol given twice with good results. Continue to monitor.
[2017-01-13] MEDS: Fluticasone-Salmeterol 500-50 Inhaler INHALATION SCH (08:37)
[2017-01-13] MEDS: levETIRAcetam 500 mg Tablet PO SCH (08:38)
[2017-01-13] MEDS: Tiotropium 18mcg/Cap 5 Capsule Inhaler Kit INHALATION SCH (08:38)
[2017-01-13] MEDS: Fluticasone 0.05% 15 Spray/2 Gm 16 Gm Nasal Spray NASAL SCH (08:38)
[2017-01-13 12:23] LABS: Mean Corpuscular Volume 93.5 fL (81-100)
--- NOTE | 2017-01-13 13:01 | NUR ---
Social Work: Assessment D&A: See initial assessment. SLAB CONDITIONER SUPERVISOR reviewed EMR, which states pt is at [facility] with risa Romero. Pt's primary insurance is Medicare with an AARP supplement. PCP is GONZALEZ Lauren. Readmit risk score is not available. SLAB CONDITIONER SUPERVISOR met with the pt at bedside and explained SLAB CONDITIONER SUPERVISOR role. Pt reports that she resides at home with her in a two-story home with 6 external steps and 14 internal steps. Pt remains independent with ADL's. Pt reports that her primary contact is her , Domingo Chu ([phone]). Pt drives POV and does not currently utilize DME. Pt reports no HH or SNF history. Pt has completed DPOA/Advance Directive paperwork and it is on file with [facility], per report. PT has no exterminator helper care or VA benefits. Pt does not utilize any community services at this time. Pt's family to provide transport home at discharge. No SW needs apparent; SLAB CONDITIONER SUPERVISOR will continue to follow. P: Pt is likely to discharge home with family via POV. SOLOMON Robledo Addendum: 01/13/17 at 1304 by DENY MCCAIN Amended: Links added.
[2017-01-13] MEDS ORDERED: LOSA50TA37 PO (14:44)
[2017-01-13] MEDS ORDERED: AMLO5TAB2 PO (14:44)
[2017-01-13] MEDS ORDERED: KEP500TA PO (14:44)
--- NOTE | 2017-01-13 14:49 | PCM.DIMED ---
Discharge Instructions Date of Service Jan 13, 2017 Dates of Hospitalization Jan 11, 2017 at 16:44 Discharge Diagnosis Discharge Diagnosis Diarrhea, status post treatment for C. difficile Accelerated hypertension Seizure, generalized, tonic-clonic Medication Instructions Additional med instructions A new prescription for losartan at the increased dose of 50 mg per day has been sent to pharmacy. One additional blood pressure medicine amlodipine 5 mg has been prescribed. You should monitor your blood pressure at home. If your systolic blood pressure (top number) is less than 120 then you may stop taking the amlodipine. A new prescription for levetiracetam (Keppra) has been sent to your pharmacy. You should follow-up with a neurologist to further evaluate your seizure disorder. Diet Discharge Diet: No restrictions Activity Discharge Activity: Other (You should not operate an automobile or other dangerous equipment until you have been evaluated and cleared to do so by a neurologist.) Patient Instructions Patient Instructions We suggest that you follow-up with the GI clinic Dr. Molina for further evaluation of your chronic diarrhea. At this time it does not seem that you have recurrent C. difficile infection. Follow-up plan Please arrange referral to Dr. Abe Richard for evaluation of new diagnosis of seizure disorder. Follow-up Provider: Cristy Mcclellan Follow-up with PCP in: 1 week (for a posthospitalization follow-up) Provider: Abe Richard MD Follow-up in: Other (call for next available new patient appointment.) Irineo Milian MD Jan 13, 2017 14:49
--- NOTE | 2017-01-13 18:06 | NUR ---
Discharge Patient D/Cd home in stable condition. New meds/follow up instructions and when to call or come in discussed with pt and . No questions at this time. Per MD, Rx sent electronically to pharmacy. PIV D/Cd and TELE taken off. Pt wheeled out by LADY.
--- NOTE | 2017-01-13 19:10 | PCM.DC.MED ---
Discharge Summary Date of Service Jan 13, 2017 Dates of Hospitalization Date of Hospital Admission Jan 11, 2017 at 16:44 Date of Discharge: Jan 13, 2017 Providers: Admitting Physician: Delaney Pascual DO Primary Care Physician: Cristy Mcclellan Attending Physician: Delaney Pascual DO Diagnosis at Time of Discharge Diagnosis at Time of Discharge Diarrhea, status post treatment for C. difficile Accelerated hypertension Seizure, generalized, tonic-clonic Procedures XRay, CTs & MRIs Chest x-ray 1. No acute cardiopulmonary disease. Dictated by: Maxim Valadez M.D. on 01/11/2017 at 11:24 ECG 12 Lead Normal sinus rhythm with no ST elevations; rate around 90 . Brief History History of Present Illness (per admission note): 71-year-old female with a recent admission for recurrent C. difficile infection was treated with a ten-day course of Fidaxomicin, hypertension, COPD, GERD, and aortic stenosis present emergency department due to continued loose stools, although she does not classified as diarrhea, and general sense of malaise that began this morning. When the patient presented to the emergency department her blood pressure was noted to be in the 200s. She states that her stools have not returned to normal since her last admission and she is suffering from bloating, nausea, vomiting 1, and chills. However she denies fever, hematochezia or hematemesis, or chest pain, shortness of breath. She denies additional neurological symptoms. Patient states that she completed the full course of Fidaxomicin and her symptoms have mostly abated with the exception of her stool still been loose. Emergency department chest x-ray was unremarkable, she had a small leukocytosis, and glucose was mildly elevated. Repeat stool PCR shows C. difficile which may be left over from previous admission, and enteropathic Escherichia coli which was present on her exam at the end of November. . Hospital Course 71-year-old female with chronic recurrent diarrhea, recently treated with a ten- day course of Fidaxomicin, finished 2 weeks ago presents emergency department with ongoing loose stools and new general malaise and fatigue, and noted to have accelerated hypertension. Persistent diarrhea; present on admission; ongoing. Diarrhea abated spontaneously within 24 hours. C. difficile PCR remains positive as expected in weeks following highly effective therapy. She was treated with vancomycin by mouth, briefly then discontinued. Current enteric pathogen PCR panel also reveals enteropathogenic Escherichia coli. She has no symptomatic watery diarrhea to suggest E PE C clinical infection. This does not suggest significant new infection or relapse C. difficile. She seems to have a subchronic diarrhea disorder which predated her treatment for C. difficile, and is being followed by Dr. Molina In the GI clinic. - The patient was advised to monitor her bowel function and seek medical care for significant increase in stool pattern or fever and abdominal pain - Plan follow-up with GI service in light of multiple admissions for diarrhea this year with persistent loose stool pattern, not all related to C. difficile Hypertensive urgency; present on admission; ongoing -Increased dose of losartan, add amlodipine (calcium channel bakari also may slow bowels) - Blood pressure was 150/80 prior to discharge Seizure disorder, not present on admission. She was observed by medical staff to have one generalized tonic-clonic seizure, resulting in transfer to the PCC unit. gives clear history of bilateral tonic-clonic loss of consciousness episodes and [place] on 2 prior occasions. Treated with antiepileptic medications. 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 This may have been exacerbated by hypertensive urgency. We have initiated Keppra. Unable to obtain EEG in hospital over the weekend. The patient and were counseled not to operate motor vehicle or other dangerous activities until seen by neurologist. - Continue 500 mg twice a day Keppra - Patient and family advised to contact the office of Dr. Abe Richard for neurological evaluation . Exam Vital Signs (Last) Date Time Temp Pulse Resp B/P Pulse Ox O2 Delivery O2 Flow Rate FiO2 01/13/17 15:15 36.6 89 18 141/86 97 Nasal Cannula 2.00 Exam General: Healthy-appearing elderly woman, no acute distress HEENT: sclerae anicteric, oral mucosa moist Neck: no JVD Chest: clear to auscultation; Cardiac: S1S2, no murmur Abdomen: BS normal, non-tender, nondistended Extremities: No pedal edema Neuro: A&O, cranial nerves symmetric, motor strength 5/5, Test 01/11/17 11:50 01/12/17 03:58 01/13/17 10:10 Magnesium Level 2.0mg/dL (1.6-2.6) Troponin T < 0.010ug/L (0.0-0.011) Lipase 41U/L (13-60) Procalcitonin 0.05ng/mL (0.00-0.08) Neutrophils (%) (Auto) 85.4% (40-74) Lymphocytes (%) (Auto) 6.1% (14-46) Monocytes (%) (Auto) 8.2% (4-12) Eosinophils (%) (Auto) 0% (0-5) Basophils (%) (Auto) 0.1% (0-3) Total Bilirubin 0.8mg/dL (0.0-1.2) Aspartate Amino Transf (AST/SGOT) 26U/L (0-50) Alanine Aminotransferase (ALT/SGPT) 14U/L (0-32) Alkaline Phosphatase 117U/L (25-165) Total Protein 7.0g/dL (6.4-8.4) Albumin 3.9g/dL (3.4-5.0) White Blood Count 9.5th/mm3 (3.8-10.1) Red Blood Count 3.71mil/mm3 (3.90-5.20) Hemoglobin 11.5g/dL (12.0-15.6) Hematocrit 34.7% (35.0-46.0) Mean Corpuscular Volume 93.5fL (81-100) Mean Corpuscular Hemoglobin 31.0pg (27.0-35.0) Mean Corpuscular Hemoglobin Concent 33.1% (32.0-37.0) Red Cell Distribution Width 13.1% (12.3-15.4) Platelet Count 133bil/L (150-400) Sodium Level 137mEq/L (134-144) Potassium Level 3.6mEq/L (3.5-5.2) Chloride Level 99mEq/L (97-108) Carbon Dioxide Level 21mmol/L (18-29) Blood Urea Nitrogen 19mg/dL (8-27) Creatinine 1.03mg/dL (0.57-1.00) Estimat Glomerular Filtration Rate 76mL/min (>59) Glucose Level 110mg/dL (60-99) Calcium Level 9.4mg/dL (8.5-10.1) Microbiology Results Name: GEO VAZQUEZ I Age/Sex: 71/F Attend Dr: Braulio Bhagat MD Acct: [id number] Unit: [id number] Status: REG ER Location: SED Re01/11/17 Disch: Specimen: [id number] Collected: 01/11/17 Status: COMP Req#: [id number] Received: 01/11/17 Source: STOOL Sp Desc : Subm Dr: Braulio Kiser MD Ordered: ROMINA Comments: Collected by Nurse/Unit? Y/N Y Procedure Result Verified Site Microbiology CAMPYLBACTER SP PCR Final 01/11/17-1425 Not Detected C DIFF TOXIN A AND B BY PCR Final 01/11/17-1425 Organism 1 POS FOR CDIF TOXIN C DIF TOXIN A&B PCR DETECTED TIME CALLED: 1423 DATE CALLED: 01/11/17 FLOOR/DOCTOR: SHE/JOHN CALLED BY: VF PCR testing alone cannot distinquish C. difficile disease from a carrier state, and therefore correlation with clinical findings is required. ECOLI PCR ENTEROPATHOGENIC Final 01/11/17-1425 Organism 1 ECOLI ENTEROPATHOGENIC EPEC ECOLI PCR ENTEROPATHOGENIC Final (continued) 01/11/17-1425 ECOLI EPEC PCR DETECTED TIME CALLED: 1424 DATE CALLED: 01/11/17 FLOOR/DOCTOR: SED/ALEXI CALLED BY: VF . Discharge Medications Discharge Medications Amlodipine (Amlodipine) 5 Mg Tablet 5 MG PO DAILY Prescribed by: ALLY CEVALLOS MD Atorvastatin (Lipitor) 40 Mg Tablet 40 MG PO DAILY (Reported) Budesonide/Formoterol 160-4.5 mcg Inh (Symbicort 160-4.5 mcg Inh) 120 Puff Inhaler 2 PUFF INHALATION BID (Reported) Citalopram (Citalopram) 20 Mg Tablet 20 MG PO DAILY (Reported) Cyanocobalamin (Vitamin B-12) (Vitamin B12) 5,000 Mcg Tab.rapdis 5,000 MCG PO DAILY (Reported) Fluticasone Propionate (Fluticasone Propionate Nasal) 16 Gm [place].susp 2 SPRAY NS DAILY (Reported) Levetiracetam (Keppra) 500 Mg Tablet 500 MG PO BID Prescribed by: ALLY CEVALLOS MD Losartan Potassium (Losartan Potassium) 50 Mg Tablet 50 MG PO DAILY Prescribed by: ALLY CEVALLOS MD Pantoprazole DR (Pantoprazole DR) 40 Mg Tablet.dr 40 MG PO DAILY (Reported) Tiotropium [place] (Spiriva) 18 Mcg Cap.w.dev 18 MCG IH DAILY (Reported) Ubidecarenone (Co Q-10) 100 Mg Capsule 100 MG PO DAILY (Reported) As needed Albuterol HFA (Proair HFA) 8.5 Gm Hfa.aer.ad 2 PUFFS INHALATION Q4-6H PRN PRN For Shortness of Breath (Reported) Albuterol Neb Soln (Albuterol Neb Soln) 2.5 Mg/3 Ml Vial.neb 2.5 MG IH Q4 PRN PRN For Shortness of Breath (Reported) Epinephrine (Epipen 2-Mu) 0.3 Mg/0.3 Ml Auto.injct 0.3 MG IM PRN For Anaphyllaxis (Reported) Ondansetron ODT (Zofran ODT) 4 Mg Tablet 4 MG PO Q4H PRN PRN For Nausea Prescribed by: BRAULIO KISER Additional med instructions A new prescription for losartan at the increased dose of 50 mg per day has been sent to pharmacy. One additional blood pressure medicine amlodipine 5 mg has been prescribed. You should monitor your blood pressure at home. If your systolic blood pressure (top number) is less than 120 then you may stop taking the amlodipine. A new prescription for levetiracetam (Keppra) has been sent to your pharmacy. You should follow-up with a neurologist to further evaluate your seizure disorder. Followup Plan Disposition: Home Follow-up plan Please arrange referral to Dr. Abe Richard for evaluation of new diagnosis of seizure disorder. Discharge Diet: No restrictions Discharge Activity: Other (You should not operate an automobile or other dangerous equipment until you have been evaluated and cleared to do so by a neurologist.) Patient Instructions We suggest that you follow-up with the GI clinic Dr. Molina for further evaluation of your chronic diarrhea. At this time it does not seem that you have recurrent C. difficile infection. Follow-up Provider: Cristy Mcclellan Follow-up with PCP in: 1 week (for a posthospitalization follow-up) Provider: Abe Richard MD Follow-up in: Other (call for next available new patient appointment.) Mid-level Provider: Truman Molina MD Follow-up with Mid-level in: Other (as scheduled for follow-up of chronic diarrhea) Time spent 45 minutes copies to: Cristy Mcclellan; Abe Richard MD; Truman Molina MD, Jeffrey W MD Jan 13, 2017 19:10
[2017-01-13] MEDS ORDERED: levETIRAcetam 500 mg Tablet PO SCH (20:30)
[2017-01-13] MEDS ORDERED: Vancomycin 125 mg Oral Capsule PO SCH (20:30)
== END 2017-01-13 18:02 | disposition home or self-care (01) | DRG 373 ==
LOC: SED 10:23 → OBSVTOIN 16:44 → OSC 16:44 → PCC 21:35 → CCU 01-12 01:24 → PCC 01-12 16:45
PROVIDERS: ADMIT Family Medicine; ATTEND Family Medicine
DX: A04.7 Enterocolitis due to Clostridium difficile (principal); Z87.891 Personal history of nicotine dependence; I16.0 Hypertensive urgency; I10 Essential (primary) hypertension; F32.9 Major depressive disorder, single episode, unspecified; J45.909 Unspecified asthma, uncomplicated; J44.9 Chronic obstructive pulmonary disease, unspecified; E78.5 Hyperlipidemia, unspecified; G40.409 Other generalized epilepsy and epileptic syndromes, not intractable, without status epilepticus